=== PATIENT | male | born 1930 | race Caucasian/White ===

== ENCOUNTER → 2016-12-08 | Outpatient (CLI) | payer BC ==
[~2016-12-08] MED LIST: CELE100C PO; CHOL1CAP85 PO; CLOTCRE33 TOP; CYAN5000 PO; GARL400T4 PO; LUTE15CA PO; MELA3TAB7 PO; MULT-188 PO; NAPR1TAB9 PO; OMEGCAP2 PO; VITA1TAB4 PO; ZCR40 PO
== END | disposition home or self-care (01) ==
LOC: C.PATHSPEC 12:21
PROVIDERS: ATTEND Dentist Oral and Maxillofacial Pathology
DX: M27.0 Developmental disorders of jaws (principal)

== ENCOUNTER → 2017-07-20 | Outpatient (CLI) | payer BC | END | disposition home or self-care (01) | LOC: C.LABSPEC 17:11 | PROVIDERS: ATTEND Urology | DX: N39.0 Urinary tract infection, site not specified (principal) ==

== ENCOUNTER 2017-10-30 14:35 | Emergency (ER) | payer BC ==
[~2017-10-30] VITALS: Ht 167.6 cm; Wt 73.0 kg
[2017-10-30 14:40] VITALS: TEMP 36.3; Ht 167.6 cm; Wt 73.0 kg
[2017-10-30] MEDS ORDERED: SODIUM CHLORIDE 0.9% 1000ML 1,000 ML IV STA (17:46)
[2017-10-30] MEDS ORDERED: CHOLESTYRAMINE LIGHT 4 GM PKT PO STA (17:46)
[2017-10-30] MEDS ORDERED: ZCR40 PO (17:53)
[2017-10-30] MEDS ORDERED: MELA1TAB54 PO (17:53)
[2017-10-30] MEDS ORDERED: LUTE15CA PO (17:53)
[2017-10-30 18:21] LABS: BASO % 0.8 %; BASO ABS # 0.04 K/uL (0-0.2); HEMATOCRIT 45.9 % (42-52); HEMOGLOBIN 15.4 g/dL (14.0-18.0); IG# 0.01 K/uL (0.00-0.02); LYMPH % 33.1 %; LYMPH ABS # 1.62 K/uL (1.2-3.4); MEAN CELL VOLUME 97.7 fL (80-100); MEAN CORPUSCULAR HEMOGLOBIN 32.8 pg (25-34); MEAN CORPUSCULAR HGB CONC 33.6 g/dl (32-36); MEAN PLATELET VOLUME 10.4 fL (7.4-10.4); MONO % 13.9 %; MONO ABS # 0.68 K/uL (0.11-0.59); NEUT ABS # 2.45 K/uL (1.4-6.5); PLATELET COUNT 175 K/uL (130-400); RED CELL DISTRIBUTION WIDTH CV 13.7 % (11.5-14.5); RED CELL DISTRIBUTION WIDTH SD 49.1 fL (36.4-46.3)
--- NOTE | 2017-10-30 18:22 | EMERGENCY ROOM VISIT NOTE ---
History Report prepared by Jonathan: Yuval Whittington Under the Supervision of: Dr. Shaheed Shen M.D. First contact with patient: 17:15 Chief Complaint: DIARRHEA Stated Complaint: DIARRHEA Nursing Triage Summary: patient c/o "constant, painful diarrhea for 6-7 days." Denies other symptoms. History of Present Illness The patient is an 87 year old male who presents to the Emergency Room with complaints of persistent diarrhea for 4-5 days. The patient states that every time that he eats he has diarrhea. He denies any abdominal pain or any recent antibiotic use. The patient states that he has had a colonoscopy, though it was more than ten years ago which was normal. The patient's friend additionally states that the patient has been eating sandwiches which were a couple of days old, and this is when it all started. Source of History: patient, friend Onset: 4-5 days ago Position: other (global) Quality: other (diarrhea) Timing: other (persistent) Associated Symptoms: No abdominal pain Review of Systems See HPI for pertinent positives & negatives. A total of 10 systems reviewed and were otherwise negative. Past Medical & Surgical Medical Problems: (1) Bladder tumor Social History Smoking Status: Former Smoker Marital Status: Housing Status: lives with family Occupation Status: retired Current/Historical Medications Scheduled Lutein-Zeaxanthin (Lutein), 1 CAP PO BID [place]-3 Fatty Acids (Fish Oil), 1 CAP PO DAILY Ondasetron Odt (Zofran Odt), 4 MG SL Q6H Simvastatin (Simvastatin), 40 MG PO HS Vitamin E (Vitamin E), 400 INTER.UNIT PO DAILY Scheduled PRN Celecoxib (Celebrex), 100 MG PO DAILY PRN for Pain Melatonin (Melatonin), 5 MG PO HS PRN for Sleep Naproxen (Aleve), 440 MG PO UD PRN for Pain Allergies Coded Allergies: No Known Allergies (Unverified , 07/26/14) NONE Physical Exam Vital Signs Date Time Temp Pulse Resp B/P (MAP) Pulse Ox O2 Delivery O2 Flow Rate FiO2 10/30/17 20:09 71 18 164/80 96 10/30/17 18:20 74 18 174/85 95 Room Air 10/30/17 14:40 36.3 84 20 160/81 97 Room Air Physical Exam GENERAL: Patient is a healthy-appearing well-nourished male HEAD: Normocephalic atraumatic EYES: Ocular movements intact pupils equal and react to light OROPHARYNX mucous membranes are moist no exudates present no erythema or edema present NECK: Supple no nuchal rigidity CHEST: Good equal expansion LUNGS: Clear and equal to auscultation CARDIAC: Normal S1 and S2 ABDOMEN: Soft nontender no guarding BACK: No CVA tenderness EXTREMITIES: No pain upon palpation normal muscle strength in all groups no clubbing cyanosis or edema NEURO: Patient is following commands and answering questions appropriately. Alert and oriented x3 Cranial Nerves 2-12 grossly intact Medical Decision & Procedures ER Provider Diagnostic Interpretation: Radiology results as stated below per my review and radiologist interpretation: ABDOMEN 2VIEW W/PA CHEST RTN CLINICAL HISTORY: Pt c/o diarrhea pain COMPARISON STUDY: 02/08/2014 FINDINGS: Mild emphysematous change. No focal infiltrate. Mild stable cardia megaly. Nonobstructive bowel pattern. Degenerative changes of the osseous structures throughout. No secondary evidence for free air. IMPRESSION: 1. Mild emphysematous change of the chest with no acute process. 2. Negative abdomen. The above report was generated using voice recognition software. It may contain grammatical, syntax or spelling errors. Electronically signed by: Ken Norris M.D. 10/30/2017 7:35 PM Dictated Date/Time: 10/30/2017 7:35 PM Laboratory Results 10/30/17 18:10 Red Blood Count 4.70, Mean Corpuscular Volume 97.7, Mean Corpuscular Hemoglobin 32.8, Mean Corpuscular Hemoglobin Concent 33.6, Mean Platelet Volume 10.4, Neutrophils (%) (Auto) 50.0, Lymphocytes (%) (Auto) 33.1, Monocytes (%) (Auto) 13.9, Eosinophils (%) (Auto) 2.0, Basophils (%) (Auto) 0.8, Neutrophils # (Auto ) 2.45, Lymphocytes # (Auto) 1.62, Monocytes # (Auto) 0.68, Eosinophils # (Auto ) 0.10, Basophils # (Auto) 0.04 10/30/17 18:10 Test 10/30/17 18:10 White Blood Count 4.90 K/uL (4.8-10.8) Red Blood Count 4.70 M/uL (4.7-6.1) Hemoglobin 15.4 g/dL (14.0-18.0) Hematocrit 45.9 % (42-52) Mean Corpuscular Volume 97.7 fL (80-100) Mean Corpuscular Hemoglobin 32.8 pg (25-34) Mean Corpuscular Hemoglobin Concent 33.6 g/dl (32-36) Platelet Count 175 K/uL (130-400) Mean Platelet Volume 10.4 fL (7.4-10.4) Neutrophils (%) (Auto) 50.0 % Lymphocytes (%) (Auto) 33.1 % Monocytes (%) (Auto) 13.9 % Eosinophils (%) (Auto) 2.0 % Basophils (%) (Auto) 0.8 % Neutrophils # (Auto) 2.45 K/uL (1.4-6.5) Lymphocytes # (Auto) 1.62 K/uL (1.2-3.4) Monocytes # (Auto) 0.68 K/uL (0.11-0.59) Eosinophils # (Auto) 0.10 K/uL (0-0.5) Basophils # (Auto) 0.04 K/uL (0-0.2) RDW Standard Deviation 49.1 fL (36.4-46.3) RDW Coefficient of Variation 13.7 % (11.5-14.5) Immature Granulocyte % (Auto) 0.2 % Immature Granulocyte # (Auto) 0.01 K/uL (0.00-0.02) Anion Gap 7.0 mmol/L (3-11) Est Creatinine Clear Calc Drug Dose 29.9 ml/min Estimated GFR () 45.3 Estimated GFR (Non- 39.1 BUN/Creatinine Ratio 11.0 (10-20) Calcium Level 9.7 mg/dl (8.5-10.1) Total Bilirubin 0.8 mg/dl (0.2-1) Direct Bilirubin 0.2 mg/dl (0-0.2) Aspartate Amino Transf (AST/SGOT) 27 U/L (15-37) Alanine Aminotransferase (ALT/SGPT) 29 U/L (12-78) Alkaline Phosphatase 79 U/L (45-117) Total Protein 7.4 gm/dl (6.4-8.2) Albumin 3.5 gm/dl (3.4-5.0) Lipase 106 U/L (73-393) Radiology results as stated below per my review and radiologist interpretation: Medications Administered Medications (Trade) Dose Ordered Sig/Carmela Route Start Time Stop Time Status Last Admin Dose Admin Sodium Chloride 1,000 ml @ 999 mls/hr Q1H1M STAT IV 10/30/17 17:46 10/30/17 18:46 DC 10/30/17 18:22 999 MLS/HR Cholestyramine Resin (Questran Powder Light) 4 gm NOW STAT PO 10/30/17 17:46 10/30/17 17:49 DC 10/30/17 18:22 4 GM ED Course 1740: Past medical records reviewed. The patient was evaluated in room C3. A complete history and physical examination was performed. 174: Cholestyramine Resin 4gm PO and Sodium Chloride 1000 ml @ 999 mls/hr IV 2001: Upon reexamination the patient is donig well. I discussed results and treatment plan with the patient. He verbalizes agreement and understanding. The patient is ready for discharge. Medical Decision Differential diagnosis: Etiologies such as appendicitis, diverticulitis, PUD, biliary pathology, UTI, pancreatitis, obstruction, mesenteric ischemia, aortic pathology, infections, inflammatory bowel disease, renal colic, as well as others were entertained. This is an 87-year-old male who presents emergency department complaining of diarrhea. Despite waiting in the emergency department for 4 hours the patient is unable to provide a stool sample. His a benign abdominal examination. Serial abdominal examinations were performed on the patient in the emergency department and at no time did the patient exhibited abdominal tenderness or surgical abdomen. In addition the patient has a normal CBC renal profile liver profile normal lipase. Based on these findings I felt that the patient can be safely discharged home for follow-up this primary care physician. He'll be placed on Zofran and I recommended probiotics for the diarrhea. Patient was in agreement with the treatment plan. Medication Reconcilliation Current Medication List: was personally reviewed by me Blood Pressure Screening Patient's blood pressure: Elevated blood pressure Blood pressure disposition: Referred to PCP Impression Primary Impression: Diarrhea Scribe Attestation The scribe's documentation has been prepared under my direction and personally reviewed by me in its entirety. I confirm that the note above accurately reflects all work, treatment, procedures, and medical decision making performed by me. Departure Information Dispostion Home / Self-Care Prescriptions Ondasetron Odt (ZOFRAN ODT) 4 Mg Tab 4 MG SL Q6H for Nausea, #6 TAB Prov: Shaheed Shen MD 10/30/17 Referrals No Doctor, Assigned (PCP) Forms HOME CARE DOCUMENTATION FORM, IMPORTANT VISIT INFORMATION, WORK / SCHOOL INSTRUCTIONS Patient Instructions My [facility] Additional Instructions Follow up with DR Mcclain's office Culture results are usually available in approx 48 hours You have been examined and treated today on an emergency basis only. This is not a substitute for, or an effort to provide, complete comprehensive medical care. It is impossible to recognize and treat all injuries or illnesses in a single emergency department visit. It is therefore important that you follow up closely with Dr Mcclain. Call as soon as possible for an appointment. Thank you for your time and consideration. I look forward to speaking with you again soon. Please don't hesitate to call us if you have any questions. Problem Qualifiers Primary Impression: Diarrhea Diarrhea type: unspecified type Qualified Codes: R19.7 - Diarrhea, unspecified
[2017-10-30 18:34] LABS: ALBUMIN 3.5 gm/dl (3.4-5.0); CALCIUM 9.7 mg/dl (8.5-10.1); CREATININE 1.57 mg/dl (0.60-1.40); POTASSIUM 4.4 mmol/L (3.5-5.1)
[2017-10-30 18:37] LABS: TOTAL PROTEIN 7.4 gm/dl (6.4-8.2)
--- NOTE | 2017-10-30 19:37 | DIAGNOSTIC IMAGING REPORT ---
ABDOMEN 2VIEW W/PA CHEST RTN CLINICAL HISTORY: Pt c/o diarrhea pain COMPARISON STUDY: 02/08/2014 FINDINGS: Mild emphysematous change. No focal infiltrate. Mild stable cardia megaly. Nonobstructive bowel pattern. Degenerative changes of the osseous structures throughout. No secondary evidence for free air. IMPRESSION: 1. Mild emphysematous change of the chest with no acute process. 2. Negative abdomen. The above report was generated using voice recognition software. It may contain grammatical, syntax or spelling errors. Electronically signed by: Ken Norris M.D. 10/30/2017 7:35 PM Dictated Date/Time: 10/30/2017 7:35 PM
[2017-10-30] MEDS ORDERED: ONDA4TAB10 SL (19:47)
[2017-10-30 20:09] VITALS: BP 164/80; PULSE 71; O2SAT 96
== END 2017-10-30 20:10 | disposition home or self-care (01) ==
LOC: C.EDB 14:36 → C.EDC 20:10
DX: R19.7 Diarrhea, unspecified (principal); R03.0 Elevated blood-pressure reading, without diagnosis of hypertension; Z87.891 Personal history of nicotine dependence

== ENCOUNTER 2019-04-02 12:20 | Inpatient (IN) ==
--- OUTSIDE RECORDS SUMMARY | 2019-04-02 12:22 | External Medical Summary | Continuity of Care Document ---
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) Contact dermatitis (692.9) (L25.9) Generalized osteoarthritis of unspecified site (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) (M15 .9) Balanitis (607.1) (N48.1) Constipation (564.00) (K59.00) Bladder cancer (188.9) (C67.9) Benign enlargement of prostate (600.00) (N40.0) Squamous cell carcinoma of skin (173.92) (C44.92) Joint pain in the shoulder/clavicle region (719.41) (M25.519 ) Diarrhea (787.91) (R19.7) Osteoarthritis (715.90) Urinary tract infection (599.0) (N39.0) Hematuria (599.70) (R31.9) Hyperlipidemia (272.4) (E78.5) Gait disturbance (781.2) (R26.9) Allergies and Adverse Reactions Macrobid CAPS (Allergy) Reaction: Rash Medications [place] BCG 50ML; BCG half strength Deny Bhatt Start: 11-Mar-2016 Refills: 0 [place] BCG 50ML; To be instilled intravesi marysol into the bladder once a week for three weeks, HALF STRENGTH. AMADOR Somers Start: 29-Jan-2016 Quantity: 3 Refills: 0 Simvastatin 40 MG Oral Tablet; TAKE 1 TABLET Bedtime Y ALEC meza Quantity: 90 Refills: 3 CeleBREX 100 MG Oral Capsule; TAKE 1 CAPSULE DAILY. Quantity: 30 Refills: 5 Fish Oil 1000 MG Oral Capsule; TAKE 1 CAPSULE DAILY. Start: 11-Feb-2013 Refills: 0 One-A-Day Mens 50+ Advantage Oral Tablet; TAKE 1 TABLET CHRISSY Y. Start: 11-Feb-2013 Refills: 0 Vitamin D3 49529 UNIT Oral Capsule; TAKE 1 CAPSULE Daily Start: 11-Feb-2013 Refills: 0 Ocuvite TABS; TAKE 1 TABLET DAILY. Start : 11-Feb-2013 Refills: 0 Aspirin 325 MG Oral Tablet; TAKE 1 TABLET DAILY. Start: 11-Feb-2013 Refills: 0 Garlic 1000 MG Oral Capsule; TAKE 1 CAPSULE Daily Start: 11-Feb-2013 Refills: 0 Vitamin B-12 5000 MCG Sublingual Tablet Sublingual; PLACE 1 MCG Daily Start: 11-Feb-2013 Refills: 0 Vitamin E 400 UNIT Oral Capsule; TAKE 1 CAPSULE Daily Start: 11-Feb-2013 Refills: 0 Melatonin 3 MG Oral Capsule; TAKE 1 CAPSULE AT BEDTIME NEEDED. ALEC Osorio Start: 01-Apr-2013 Refills: 0 Lutein 20 MG Oral Capsule; Take 1 capsule twice daily Refills: 0 Gabapentin 300 MG Oral Capsule Refills: 0 Clotrimazole-Betamethasone 1-0.05 % Exte rnal Cream; APPLY AND RUB IN A THIN FILM TO AFFECTED AREAS TWICE DAILY.(AM AND PM). ALEC Osorio Start: 31-Aug-2013 Quantity: 45 Refills: 1 Procedures History of Appendectomy Status: Complete d History of Colonoscopy (Fiberoptic) Stat us: Completed Immunizations Td On: 21-Mar-2000 Pneumococcal polysaccharide vaccine, 23 valent On: 08-Mar-20 03 Influenza On: 03-Jun-2012 0:00 Influenza On: 28-Jun-2013 13:23 Lot #: [id number], SANOFI PASTEUR Family History Father Family history of Family Health Status Of Father - Status: Active Mother Family history of Family Health Status Of Mother - Status: Active Brother Family history of Twin Status: Active Social History - Smoking Status Former smoker Plan of Treatment Planned Encounters Appointment; Jaylen Bhatt M.D. Start: 18-Apr-2019 11:10 Request Planned Observations Planned Goals not documented Results No Known Results Results not documented Encounters Appointment; Jaylen Bhatt M.D. 19-Apr-2018 10:10 Encounter Diagnosis: Problem not documented Appointment; Urology, Room 8 19-Apr-2018 9:50 Encounter Diagnosis: Problem not documented Appointment; Jaylen Bhatt M.D. 20-Jul-2017 13:00 Encounter Diagnosis: Problem not documented Appointment; Urology, Room 7 20-Jul-2017 12:45 Encounter Diagnosis: Problem not documented Appointment; Jaylen Bhatt M.D. 18-Apr-2019 11:10 Encounter Diagnosis: Problem not documented
[2019-04-02] MEDS ORDERED: SODIUM CHLORIDE 0.9% 1000ML 1,000 ML IV SCH (12:45)
--- NOTE | 2019-04-02 13:08 | XRay Report ---
XR chest 1V portable CLINICAL HISTORY: 89 years-old Male presenting with ams. TECHNIQUE: Portable upright AP view of the chest was obtained. COMPARISON: 08/26/2018. FINDINGS: Atherosclerosis of the aortic arch. Cardiac silhouette normal in size. No focal opacity. No large eff usion or pneumothorax. Osseous structures normal. Upper abdomen normal. IMPRESSION: 1. No acute cardiopulmonary disease. Electronically signed by: Montez Bateman M.D. 04/02/2019 1:07 PM
[2019-04-02 14:05] LABS: Basophils # (auto) 0.02 K/uL (0-0.2); Basophils % (auto) 0.2 %; Eosinophils # (auto) 0.04 K/uL (0-0.5); Eosinophils % (auto) 0.5 %; Hematocrit (blood only) 49.2 % (42-52); Hemoglobin 16.1 g/dL (14.0-18.0); Immature Granulocytes # (auto) 0.05 K/uL (0.00-0.02); Immature Granulocytes % (auto) 0.6 %; Lymphocytes # (auto) 1.25 K/uL (1.2-3.4); Lymphocytes % (auto) 15.5 %; Mean Corpuscular Hgb Conc 32.7 g/dL (32-36); Mean Platelet Volume 12.3 fL (7.4-10.4); Monocytes # (auto) 0.75 K/uL (0.11-0.59); Monocytes % (auto) 9.3 %; Neutrophils # (auto) 5.95 K/uL (1.4-6.5); Neutrophils % (auto) 73.9 %; Platelet Count 127 K/uL (130-400); Platelet Estimate Normal (Normal); RDW Standard Deviation 54.3 fL (36.4-46.3); Red Blood Count 4.87 M/uL (4.7-6.1); White Blood Count 8.06 K/uL (4.8-10.8)
[2019-04-02 14:23] LABS: Carbon Dioxide 20 mmol/L (21-32); Chloride 124 mmol/L (98-107); Potassium 4.6 mmol/L (3.5-5.1)
[2019-04-02 14:24] LABS: BUN Creatinine Ratio 23.1 (10-20); Blood Urea Nitrogen 59 mg/dl (7-18); Est GFR (African American) 25.1; Est GFR (Non-African American) 21.6; Glucose 107 mg/dl (70-99)
[2019-04-02 14:25] LABS: Calcium 9.4 mg/dl (8.5-10.1)
[2019-04-02 14:26] LABS: Alanine Aminotransferase 25 U/L (12-78); Aspartate Aminotransferase 19 U/L (15-37); Bilirubin,Total 0.8 mg/dl (0.2-1); Magnesium 2.7 mg/dl (1.8-2.4)
[2019-04-02 14:27] LABS: Albumin Globulin Ratio 0.8 (0.9-2); Albumin Level 3.3 gm/dl (3.4-5.0); Alkaline Phosphatase 95 U/L (45-117); Globulin 4.1 gm/dl (2.5-4.0); NT Pro B Type Natriuretic Pept 311 pg/ml (0-1800); Total Protein 7.4 gm/dl (6.4-8.2); Troponin I < 0.015 ng/ml (0-0.045)
[2019-04-02 14:37] LABS: Sodium 156 mmol/L (136-145)
--- NOTE | 2019-04-02 15:00 | CT Scan Report ---
CT head/brain wo con CLINICAL HISTORY: 89 years-old Male presenting with ams. TECHNIQUE: Multidetector CT imaging of the head was performed without the use of intravenous contrast . IV contrast: None. One or more dose lowering techniques were used consistent with the principles of ALARA (as low as reasonably achievable), including automatic exposure control, mA or kV adjustment t o individual patient size, and/or use of iterative reconstruction. COMPARISON: None. CT DOSE (mGy.cm): The estimated cumulative dose is 537.48 mGy.cm. FINDINGS: Stair Builder topogram: The patient is edentulous. Proportional ventricular and sulcal prominence, likely age-related parenchymal volume loss. No hemorr sajan. Brain parenchyma normal in appearance with preserved keating-white differentiation. No acute josee torial infarct. No mass effect or midline shift. No extra-axial fluid collection. Paranasal sinuses a nd mastoid air cells clear. Calvarium intact. IMPRESSION: 1. No acute intracranial abnormality. Electronically signed by: Montez Bateman M.D. 04/02/2019 2:59 PM
--- NOTE | 2019-04-02 15:53 | CT Scan Report ---
CT abd pelvis wo con CLINICAL HISTORY: 89 years-old Male presenting with new renal failure. TECHNIQUE: Multidetector CT of the abdomen and pelvis was performed without the use of intravenous co ntrast. IV contrast: None. One or more dose lowering techniques were used consistent with the princip les of ALA (as low as reasonably achievable), including automatic exposure control, mA or kV adjust ment to individual patient size, and/or use of iterative reconstruction. COMPARISON: None. CT DOSE (mGy.cm): The estimated cumulative dose is 258.30 mGy.cm. FINDINGS: Dental Technician Apprentice topogram: Unremarkable. Lung bases: Normal heart size. Coronary artery and aortic valve calcification. No pericardial or pleu ral effusion. Trace lower lobe bronchiectasis suggested. Minimal reticulation in a subpleural distrib ution may suggest scarring. Liver: Normal morphology. Normal density. Few subcentimeter well-defined hypodense lesions likely hep atic cysts or hamartomas. Biliary: No gross biliary ductal dilatation allowing for noncontrast technique. Hyperdense material w ithin the gallbladder dependently may represent sludge. The gallbladder is physiologically distended. Pancreas: Mild parenchymal atrophy. Spleen: Normal noncontrast appearance. Adrenal glands: Normal noncontrast appearance. Kidneys and ureters: Normal noncontrast appearance. Few parapelvic cyst suggested in the left kidney. No nephrolithiasis. No hydronephrosis. Normal ureters. Bladder: Circumferential bladder wall thickening. Several bladder diverticula noted. Pelvic organs: Prostate enlargement likely secondary to benign prostatic hyperplasia. Asymmetric bulg ing contour in the right peripheral zone. Bowel: Diverticulosis of the sigmoid colon without wall thickening or pericolonic inflammatory change . Mild stool burden throughout normal caliber left colon. The appendix is not visualized. No bowel ob struction. Peritoneal cavity: No free fluid or intraperitoneal gas. Lymph nodes: No gross lymphadenopathy allowing for noncontrast technique. Vasculature: Atherosclerosis of the normal caliber abdominal aorta. Abdominal wall: Normal. Musculoskeletal: Degenerative changes of the spine. Calcification in the region of the hip joints may represent osteochondromatosis or calcification of synovium. IMPRESSION: 1. No hydronephrosis or nephrolithiasis. Normal noncontrast evaluation of the kidneys. 2. 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 Several bladder diver ticula. 3. Bulging contour of the right aspect of the prostate. An underlying lesion is not excluded. Correl ate with PSA. Consider nonurgent outpatient prostate MRI if there is concern. 4. Diverticulosis coli. No evidence of diverticulitis. 5. Hyperdense material in the gallbladder may represent sludge. 6. Degenerative changes of the hips. Electronically signed by: Montez Bateman M.D. 04/02/2019 3:51 PM
[2019-04-02] MEDS ORDERED: D5W AND 1/2NSS 1,000 ML IV SCH (16:00)
[2019-04-02] MEDS ORDERED: ONDANSETRON INJ 2 MG/ML 2 ML VIAL IV PRN (17:01)
[2019-04-02] MEDS ORDERED: CONSULT PHARMACY STA (17:01)
[2019-04-02] MEDS ORDERED: ACETAMINOPHEN 325 MG TAB PO PRN (17:01)
[2019-04-02] MEDS ORDERED: DEXTROSE 5% 1,000 ML IV SCH (17:01)
[2019-04-02] MEDS ORDERED: POLYETHYLENE (MIRALAX) 17 GM PACK PO PRN (17:01)
[2019-04-02] MEDS: DEXTROSE 5% 1,000 ML IV SCH (17:07)
[2019-04-02] MEDS ORDERED: CEFEPIME CONSULT ACTIVE PRN (17:13)
[2019-04-02] MEDS ORDERED: CEFEPIME 1,000 MG in SYRINGE 0 ML IV ONE (17:15)
[2019-04-02] MEDS: TAMSULOSIN HCL 0.4 MG CAP PO ONE ×2 (17:35→17:44)
--- NOTE | 2019-04-02 17:48 | History & Physical Report ---
Date of Service April 02, 2019 Assessment & Plan (1) Acute renal failure superimposed on stage 3 chronic kidney disease: (2) Metabolic encephalopathy: (3) Dehydration: This is a 89-year-old male who has a significant past medical history of bladder cancer, BPH, HLD, CKD stage III, depression/anxiety, osteoarthritis who presents to [facility] ED secondary to altered mental status found by neighbor. In ED patient was found to have GERRI with hyponatremia. His BUN/creatinine was 59 and 2.53 with a sodium of 156. Chloride was 124, CO2 20, mag 2.7. Troponin and BNP WNL. His H&H concentrated at 16.1 and 49.2, WBC 8.06, platelet [address]. Head CT and chest x-ray without acute abnormality. CT scan of abdomen pelvis Suggest chronic bladder outlet obstruction secondary to prostamegaly with several bladder diverticula, bulging contour of the right aspect of prostate and underlying lesion is not excluded correlate with PSA. No hydronephrosis or nephrolithiasis. Patient is alert and oriented, not overly confused, but his history is very unreliable He appears significantly dehydrated and volume depleted likely secondary to poor p.o. intake Patient lives alone and does not drive, unsure of social situation if patient is safe at home alone or is taking care of himself He has very flat affect did makes minimal eye contact, question if depression versus dementia is playing a role in his p.o. intake Admit to PCU I calculated a 3.3 L deficit and will correct his hypernatremia approximately 8- 10meq/24hr D5W 100 cc/h BMP every 4 hours, will titrate fluid rate based on response Consult nephrology -discussed with Dr. Dyson Obtain urine studies, B12, folic acid RPR, phos Obtain blood cultures to rule out infectious etiology but less likely as patient is afebrile and WBC WNL Administer IV cefepime until infection ruled out (4) BPH (benign prostatic hyperplasia): Per CT report Patient denies any urinary symptoms CT scan concerning for bulging contour of right aspect of prostate -recommend correlating with PSA obtain PSA in a.m. (5) Dyslipidemia: History of HLD, currently not taking any prescription medication Will need appropriate outpatient PCP follow-up (6) DVT prophylaxis: SQ Heparin 5,000U Q12 given age, weight and Plt 128 Disposition: admit to PCU; consult case management for discharge disposition Follow up: Pt states he does not see Dr. Mcclain and would like another PCP, will arrange follow up upon discharge Patient was seen and examined in collaboration with Dr. Flores, please see addendum History of Present Illness Chief Complaint: Altered mental status Primary Care Provider: Santi Mcclain, DO This is a 89-year-old male who has a significant past medical history of bladder cancer, BPH, HLD, CKD stage III, depression/anxiety, osteoarthritis who presents to [facility] ED secondary to altered mental status found by neighbor. Patient lives alone however has a neighbor that checks on him frequently. He does not drive and relies on neighbor. Apparently neighbor came over to check in on patient and found him standing in his underwear and felt to be more confused. EMS was summoned. Patient has very flat affect and I am unsure if ROS is reliable. He denies any recent illness, any fever, chills, sweats, lightheadedness, dizziness, chest pain, shortness of breath, cough, hemoptysis, nausea, vomiting, diarrhea, changes bowel or urinary habits, increased urgency or frequency with urination, hematuria, nocturia. He says he is very hungry and has not ate anything in a few days. He is not sure why he has not eaten anything but is requesting food. He says he drinks a lot of fluid, milk and root beer. He states he has no family close by. He has 1 brother who he is estranged from. He said approximately 1 to 2 years ago he had thoughts of committing suicide and therefore sold his gun. Currently he overall feels depressed but denies any suicidal or homicidal ideation. He states he just wants to, "go home." Allergies Allergy/AdvReac Type Severity Reaction Status Date / Time nitrofurantoin Allergy Rash Unverified 04/02/19 12:50 [From Macrobid] Home Medications Home Medications Medication Instructions Recorded Confirmed Type melatonin 5 mg PO HS PRN 08/26/18 04/02/19 History cholecalciferol (vitamin D3) 1,000 unit PO DAILY 04/02/19 04/02/19 History [Vitamin D3] cyanocobalamin (vitamin B-12) 1,000 mcg PO DAILY 04/02/19 04/02/19 History [Vitamin B-12] garlic 1,000 mg PO DAILY 04/02/19 04/02/19 History lutein 20 mg PO DAILY 04/02/19 04/02/19 History yhtohwvnmnqw-dsepwvnz-trhllv 1 tab PO DAILY 04/02/19 04/02/19 History [Multivitamin 50 Plus] omega 1-itp-ckm-fish oil [Fish Oil] 2 cap PO DAILY 04/02/19 04/02/19 History vit C-E-zinc nqc-nwvvbf-ubtttq 2 tab PO DAILY 04/02/19 04/02/19 History [[facility]] vitamin E 1,000 unit PO DAILY 04/02/19 04/02/19 History Past Med/Surg History Medical History BPH (benign prostatic hyperplasia) (Chronic) Depression with anxiety (Chronic) CKD (chronic kidney disease), stage III (Chronic) Osteoarthritis (Chronic) History of bladder cancer (Chronic) History of squamous cell carcinoma (Chronic) Bladder cancer (Chronic 08/08/14) Dyslipidemia (Chronic) Gout (Chronic) Surgical History History of appendectomy (Chronic) History of colonoscopy (Chronic) Family History Father Cancer Other Family history non-contributory Social History Preferred Language: Indian Communication Ability: Effective marital status: Single Current Living Situation: Alone Current Living Situation Comment: patient states he lives alone, has neighbor that checks on him frequently, he does not drive current occupational status: retired other: Ambulates with cane Feels Safe at Home: Yes Safety Concerns: Feels Safe At This Time Smoking Status: Former smoker Hx Alcohol Use: No Hx Substance Use: No Review of Systems Review of Systems: As noted per HPI, 10 systems reviewed and negative unless noted above. Physical Exam Physical Exam: Gen: Thin, elderly male, very blunted affect, minimal eye contact, answers questions appropriately but unsure how reliable , NAD, Head: Normocephalic, Atraumatic Eyes: Sclera normal, no conjunctival injection, PERRLA, EOMI ENT: Gross hearing intact, normal pharynx, mucous membranes very dry Neck: supple, no adenopathy, No JVD, no bruit, Resp: Clear to auscultation b/l, no wheeze, rales, rhonchi. 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 Extremities: No edema bilaterally Skin: warm, very dry with sloughing of skin secondary to dryness/poor hygiene, no rash, significant turgor, cap refill < 2sec Neuro: Alert and oriented to self, place, year, president but not month, speech normal, very flat mood/affect, cran nerve 2-12 intact grossly : deferred Results & Data Vital Signs (Past 12 Hours) Vital Signs Temp Pulse Pulse Resp BP BP Pulse Ox 04/02/19 17:14 37.1 C 85 18 111/68 96 04/02/19 17:01 04/02/19 14:30 90 37 H 129/72 97 04/02/19 13:03 97 04/02/19 12:13 37.1 C 97 H 38 H 126/78 97 Pulse Ox 04/02/19 17:14 04/02/19 17:01 97 04/02/19 14:30 04/02/19 13:03 04/02/19 12:13 Laboratory Results Short CBC 04/02/19 Range/Units 13:10 WBC 8.06 (4.8-10.8) K/uL Hgb 16.1 (14.0-18.0) g/dL Hct 49.2 (42-52) % Plt Count 127 L (130-400) K/uL BMP 04/02/19 13:10 Sodium 156 H* Potassium 4.6 Chloride 124 H Carbon Dioxide 20 L BUN 59 H Creatinine 2.53 H Glucose 107 H Calcium 9.4 Cardiac Enzymes 04/02/19 Range/Units 13:10 Troponin I < 0.015 (0-0.045) ng/ml Liver Function 04/02/19 Range/Units 13:10 Total Bilirubin 0.8 (0.2-1) mg/dl AST 19 (15-37) U/L ALT 25 (12-78) U/L Alkaline Phosphatase 95 (45-117) U/L Albumin 3.3 L (3.4-5.0) gm/dl Urine 07/13/19 Range/Units 15:42 Urine Color Urine Appearance (Clear) Urine pH (4.5-7.5) Ur Specific Viola (1.000-1.030) Urine Protein (Negative) Urine Glucose (UA) (Negative) Diagnostic Findings Abd/Pelvis CT: IMPRESSION: 1. No hydronephrosis or nephrolithiasis. Normal noncontrast evaluation of the kidneys. 2. 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 Several bladder diverticula. 3. Bulging contour of the right aspect of the prostate. An underlying lesion is not excluded. Correlate with PSA. Consider nonurgent outpatient prostate MRI if there is concern. 4. Diverticulosis coli. No evidence of diverticulitis. 5. Hyperdense material in the gallbladder may represent sludge. 6. Degenerative changes of the hips. Head CT: IMPRESSION: 1. No acute intracranial abnormality. CXR: IMPRESSION: 1. No acute cardiopulmonary disease. Medications Administered Dextrose (D5w) 1,000 mls @ 100 mls/hr IV .Q10H [facility] Stop: 05/02/19 16:44 Last Admin: 04/02/19 17:07 Dose: 100 mls/hr Documented by: [id number] Discontinued Medications Sodium Chloride (Nss 1000ml) 1,000 mls @ 200 mls/hr IV .Q5H [facility] Stop: 05/02/19 12:44 Last Admin: 04/02/19 13:59 Dose: 200 mls/hr Documented by: [id number] Dextrose/Sodium Chloride (D5w And 1/2nss) 1,000 mls @ 75 mls/hr IV .[id number] [facility] Stop: 05/02/19 15:59 Last Admin: 04/02/19 17:04 Dose: Not Given Documented by: [id number] Dextrose (D5w) 1,000 mls @ 75 mls/hr IV .[id number] [facility] Stop: 05/02/19 17:00 Last Admin: 04/02/19 17:04 Dose: Not Given Documented by: [id number] Cefepime HCl 1,000 mg/ Syringe 11.3 mls @ 5.5 mls/min IV 1715 ONE; Protocol Stop: 04/02/19 17:17 Last Admin: 04/02/19 17:34 Dose: 5.5 mls/min Documented by: [id number] Tamsulosin HCl (Flomax) 0.4 mg PO 1715 ONE Stop: 04/02/19 17:16 Last Admin: 04/02/19 17:44 Dose: Not Given Documented by: [id number] ECG Rate (beats per minute): 85 Rhythm: normal sinus Code Status & VTE Plan Code Status Full Code VTE Prophylaxis Plan VTE Prophylaxis will be ordered: Yes Supervising Physician Co-Signing Physician Notes I have seen and examined the patient with physician teachers' assistant and agree with the assessment and plan as above and would like to comment in addition that the main medical issues is hypernatremia as patient presents with serum sodium of 156 and it is unclear whether or not this is an acute or chronic hypernatremia. At this time it is is presumed that hypernatremia may be secondary to dehydration and at this time the goal is to use D5 water to bring down the serum a sodium perhaps by no more than 8 meq in a 24 hour period. will do serial basic metabolic panel to see if we can achieve these goals. while the patient's initial presentation may indicate an altered mental status, he is currently following directions and able to eat food for himself. Will cover for possible infection by doing cefepime 1 gram q12 hours and follow the blood cultures. the urine analysis is positive for bacteria and there may be an underlying urine infection. will also monitor the urine output. Patient's jeremy Fabienne Walker ([phone]) who lives in [place] have been notified after patient gave the phone number and permission to call and she did indicate history of prostate cancer in the past and admission CT scan does show chronic bladder L obstruction secondary to prostatomegaly, Several bladder diverticula, and Bulging contour of the right aspect of the prostate for which an underlying lesion is not excluded. Will do qshift bladder scan On exam: General: no acute distress Neuro: awake and alert, appears to be answering questions appropriately but he cannot elaborate what happened at home that led to hospital presentation Lungs: clear to asucltation heart: regular rate and rhythm abdomen; soft nontender, positive bowel sounds Extremities no edema
[2019-04-02 18:31] LABS: Folate (Folic Acid) 10.82 ng/ml (>5.38)
[2019-04-02 18:35] LABS: Calcium 8.9 mg/dl (8.5-10.1); Creatinine Clr Calc Pharmacy 19.1 ml/min; Est GFR (African American) 30.2; Phosphorus 3.4 mg/dl (2.5-4.9); Potassium 4.3 mmol/L (3.5-5.1)
[2019-04-02 18:42] LABS: INR 1.1 (0.9-1.1); Partial Thromboplastin Time 26.2 Seconds (21.0-31.0); Prothrombin Time 10.8 Seconds (9.0-12.0)
[2019-04-02] MEDS: HEPARIN SOD 5,000 UNIT/0.5 ML VIAL SQ SCH (21:39)
[2019-04-02 22:16] LABS: Total Protein Urine Random 75.1 mg/dl (0-11.9)
--- NOTE | 2019-04-02 22:23 | Emergency Department Note ---
Entered by Kenia Hurley acting as a scribe for History of Present Illness General Chief complaint: Altered Mental Status Stated complaint: ALTERED LEVEL CONSCIOUSNESS Time Seen by Provider: 04/02/19 12:27 Source: patient and other (nursing staff) History of Present Illness Onset (ago): day(s) (today) Location: head Pain Consistency: + other (episode) Quality: + other (altered mental status) Associated symptoms: + denies other symptoms (any pain anywhere, trouble moving his bowels, urinary symptoms); no loss of appetite The patient is an 89 year old male who presents to the ED with complaints of an episode of altered mental status starting today. Per nursing staff, the patient lives in an elderly neighborhood and one of his other elderly neighbors who cares for him went to check on him. They report that it took him a long time to answer the door and when he did, he was in his underwear. They report that he ended up getting into a fight with her because she states that this just wasnt him. They state that he then just sat down in a chair and refused to respond or answer questions until he found out EMS was on its way. They report that his friends states that he wasnt caring for himself, but his house was immaculate. They note that he did however have dirty clothes on when he arrived here. The patient denies any pain anywhere, trouble moving his bowels, urinary symptoms, loss of appetite, or change in medication. Home Medications Home Medications Medication Instructions Recorded Confirmed Type melatonin 5 mg PO HS PRN 08/26/18 04/02/19 History cholecalciferol (vitamin D3) 1,000 unit PO DAILY 04/02/19 04/02/19 History [Vitamin D3] cyanocobalamin (vitamin B-12) 1,000 mcg PO DAILY 04/02/19 04/02/19 History [Vitamin B-12] garlic 1,000 mg PO DAILY 04/02/19 04/02/19 History lutein 20 mg PO DAILY 04/02/19 04/02/19 History fhrcpekeshct-oyksufxy-kfefwo 1 tab PO DAILY 04/02/19 04/02/19 History [Multivitamin 50 Plus] omega 1-gjf-ynj-fish oil [Fish Oil] 2 cap PO DAILY 04/02/19 04/02/19 History vit C-E-zinc rja-eamuqb-srgwmx 2 tab PO DAILY 04/02/19 04/02/19 [facility] vitamin E 1,000 unit PO DAILY 04/02/19 04/02/19 History Allergies Allergy/AdvReac Type Severity Reaction Status Date / Time nitrofurantoin Allergy Rash Unverified 04/02/19 12:50 [From Macrobid] Past Med/Surg History Medical History BPH (benign prostatic hyperplasia) (Chronic) Depression with anxiety (Chronic) CKD (chronic kidney disease), stage III (Chronic) Osteoarthritis (Chronic) History of bladder cancer (Chronic) History of squamous cell carcinoma (Chronic) Bladder cancer (Chronic 08/08/14) Dyslipidemia (Chronic) Gout (Chronic) Surgical History History of appendectomy (Chronic) History of colonoscopy (Chronic) Family History Father Cancer Other Family history non-contributory Social History Preferred Language: Albanian Communication Ability: Effective marital status: Single Current Living Situation: Alone Current Living Situation Comment: patient states he lives alone, has neighbor that checks on him frequently, he does not drive current occupational status: retired other: Ambulates with cane Feels Safe at Home: Yes Safety Concerns: Feels Safe At This Time Smoking Status: Former smoker Hx Alcohol Use: No Hx Substance Use: No Review of Systems See HPI for pertinent positives & negatives. and A total of 10 systems reviewed and were otherwise negative Physical Exam Vital Signs Vital Signs - 24 hr 04/02/19 12:13 04/02/19 13:03 04/02/19 14:30 Temperature 37.1 C Temperature Source Oral Sepsis Recent Fever Within 48 Hours No Sepsis New/Unexplained Change in Mental Status Yes Sepsis Action Taken by Nursing No Action Required Pulse Rate 97 H Pulse Rate [Apical] 90 Pulse Rhythm Regular Pulse Rhythm [Apical] Regular Pulse Strength Normal Pulse Strength [Apical] Normal Respiratory Rate 38 H 37 H Respiratory Effort / Characteristics Non-Labored Non-Labored Respiratory Depth Normal Respiratory Pattern Tachypnea Tachypnea Blood Pressure 126/78 Blood Pressure [Right Arm] 129/72 Blood Pressure Mean 94 Blood Pressure Mean [Right Arm] 91 Blood Pressure Position Lying Blood Pressure Position [Right Arm] Sitting Pulse Oximetry 97 97 97 Oxygen Delivery Method Room Air Room Air Room Air GENERAL: alert, well appearing, well nourished, no distress, non-toxic EYE EXAM: normal conjunctiva, PERRL and EOM's grossly intact OROPHARYNX: no exudate, no erythema, lips, buccal mucosa, and tongue normal and mucous membranes are very dry NECK: supple, no nuchal rigidity, no adenopathy, non-tender LUNGS: Diminished breath sounds. No wheezes, rhonchi, or rales. Normal chest wall mechanics HEART: no murmurs, S1 normal and S2 normal ABDOMEN: abdomen soft, non-tender, normo-active bowel sounds, no masses, no rebound or guarding. BACK: Back is symmetrical on inspection and there is no deformity, no midline tenderness, no CVA tenderness. SKIN: no rashes and no bruising, no petechiae UPPER EXTREMITIES: upper extremities are grossly normal. FROM, nml pulses b/l. LOWER EXTREMITIES: No pitting edema. FROM, nml pulses b/l. NEURO EXAM: Normal sensorium, cranial nerves II-XII grossly intact, normal speech, no gross weakness of arms, no gross weakness of legs. No ataxia, no facial droop. Patient answered all questions of orientation correct for the nurse and myself with the exception of the month. Course 1233: Past medical records reviewed. The patient was evaluated in room A9B. A complete history and physical exam was performed. 1506: I reevaluated the patient and updated him on his test results. I discussed the treatment plan with him. He verbally agrees and understands. 1513: I discussed the patient's case with ALEC Guerra. She will evaluate the patient for further management. Consultations Consultation #1: I discussed the patient's case with ALEC Guerra. She will evaluate the patient for further management. Time: 15:13 Administered Medications Heparin Sodium (Porcine) (Heparin Sodium (Porcine)) 5,000 units SQ Q12 NAYA Stop: 05/02/19 20:59 Last Admin: 04/02/19 21:39 Dose: 5,000 units Documented by: [id number] Cosigned by: [id number] Dextrose (D5w) 1,000 mls @ 100 mls/hr IV .Q10H NAYA Stop: 05/02/19 16:44 Last Admin: 04/02/19 17:07 Dose: 100 mls/hr Documented by: [id number] Discontinued Medications Sodium Chloride (Nss 1000ml) 1,000 mls @ 200 mls/hr IV .Q5H NAYA Stop: 05/02/19 12:44 Last Infusion: 04/02/19 19:12 Dose: 0 mls/hr Documented by: [id number] Admin: 04/02/19 13:59 Dose: 200 mls/hr Documented by: [id number] Dextrose/Sodium Chloride (D5w And 1/2nss) 1,000 mls @ 75 mls/hr IV .[id number] NAYA Stop: 05/02/19 15:59 Last Admin: 04/02/19 17:04 Dose: Not Given Documented by: [id number] Dextrose (D5w) 1,000 mls @ 75 mls/hr IV .[id number] NAYA Stop: 05/02/19 17:00 Last Admin: 04/02/19 17:04 Dose: Not Given Documented by: [id number] Cefepime HCl 1,000 mg/ Syringe 11.3 mls @ 5.5 mls/min IV 1715 ONE; Protocol Stop: 04/02/19 17:17 Last Admin: 04/02/19 17:34 Dose: 5.5 mls/min Documented by: [id number] Tamsulosin HCl (Flomax) 0.4 mg PO 1715 ONE Stop: 04/02/19 17:16 Last Admin: 04/02/19 17:44 Dose: Not Given Documented by: [id number] Medical Decision Making Differential Diagnosis Differential diagnoses includes but is not limited to toxic, metabolic, infectious, traumatic, cardiac, neurologic, hematologic, psychiatric and inflammatory etiologies. Medical Records Attestation: I reviewed the patient's medical records. Home Medications Current Medication List: was personally reviewed by me Laboratory Data Attestation: I reviewed the patient's lab results. Result diagrams: 04/02/19 13:10 04/02/19 17:42 Lab Results 04/02/19 04/02/19 04/02/19 Range/Units 13:10 13:10 13:10 WBC 8.06 (4.8-10.8) K/uL RBC 4.87 (4.7-6.1) M/uL Hgb 16.1 (14.0-18.0) g/dL Hct 49.2 (42-52) % MCV 101.0 H (80-100) fL MCH 33.1 (25-34) pg MCHC 32.7 (32-36) g/dL RDW Std Deviation 54.3 H (36.4-46.3) fL RDW Coeff of Erick 15.0 H (11.5-14.5) % Plt Count 127 L (130-400) K/uL MPV 12.3 H (7.4-10.4) fL Immature Gran % (Auto) 0.6 % Neut % (Auto) 73.9 % Lymph % (Auto) 15.5 % Sandoval % (Auto) 9.3 % Eos % (Auto) 0.5 % Baso % (Auto) 0.2 % Immature Gran # (Auto) 0.05 H (0.00-0.02) K/uL Neut # (Auto) 5.95 (1.4-6.5) K/uL Lymph # (Auto) 1.25 (1.2-3.4) K/uL Sandoval # (Auto) 0.75 H (0.11-0.59) K/uL Eos # (Auto) 0.04 (0-0.5) K/uL Baso # (Auto) 0.02 (0-0.2) K/uL Platelet Estimate Normal (Normal) Sodium 156 H* (136-145) mmol/L Potassium 4.6 (3.5-5.1) mmol/L Chloride 124 H (98-107) mmol/L Carbon Dioxide 20 L (21-32) mmol/L Anion Gap 12.0 H (3-11) BUN 59 H (7-18) mg/dl Creatinine 2.53 H (0.6-1.4) mg/dl Est Cr Clr Drug Dosing Not Reportable Est GFR ( Amer) 25.1 Est GFR (Non-Af Amer) 21.6 BUN/Creatinine Ratio 23.1 H (10-20) Glucose 107 H (70-99) mg/dl POC Lactic Acid Soy (0.90-1.70) mmol/L Calcium 9.4 (8.5-10.1) mg/dl Magnesium 2.7 H (1.8-2.4) mg/dl Total Bilirubin 0.8 (0.2-1) mg/dl AST 19 (15-37) U/L ALT 25 (12-78) U/L Alkaline Phosphatase 95 (45-117) U/L Ammonia Cancelled Troponin I < 0.015 (0-0.045) ng/ml NT-Pro-B Natriuret Pep 311 (0-1800) pg/ml Total Protein 7.4 (6.4-8.2) gm/dl Albumin 3.3 L (3.4-5.0) gm/dl Globulin 4.1 H (2.5-4.0) gm/dl Albumin/Globulin Ratio 0.8 L (0.9-2) Lipase 278 (73-393) U/L 04/02/19 Range/Units 13:38 WBC (4.8-10.8) K/uL RBC (4.7-6.1) M/uL Hgb (14.0-18.0) g/dL Hct (42-52) % MCV (80-100) fL MCH (25-34) pg MCHC (32-36) g/dL RDW Std Deviation (36.4-46.3) fL RDW Coeff of Erick (11.5-14.5) % Plt Count (130-400) K/uL MPV (7.4-10.4) fL Immature Gran % (Auto) % Neut % (Auto) % Lymph % (Auto) % Sandoval % (Auto) % Eos % (Auto) % Baso % (Auto) % Immature Gran # (Auto) (0.00-0.02) K/uL Neut # (Auto) (1.4-6.5) K/uL Lymph # (Auto) (1.2-3.4) K/uL Sandoval # (Auto) (0.11-0.59) K/uL Eos # (Auto) (0-0.5) K/uL Baso # (Auto) (0-0.2) K/uL Platelet Estimate (Normal) Sodium (136-145) mmol/L Potassium (3.5-5.1) mmol/L Chloride (98-107) mmol/L Carbon Dioxide (21-32) mmol/L Anion Gap (3-11) BUN (7-18) mg/dl Creatinine (0.6-1.4) mg/dl Est Cr Clr Drug Dosing Est GFR ( Amer) Est GFR (Non-Af Amer) BUN/Creatinine Ratio (10-20) Glucose (70-99) mg/dl POC Lactic Acid Soy 1.83 H (0.90-1.70) mmol/L Calcium (8.5-10.1) mg/dl Magnesium (1.8-2.4) mg/dl Total Bilirubin (0.2-1) mg/dl AST (15-37) U/L ALT (12-78) U/L Alkaline Phosphatase (45-117) U/L Ammonia Troponin I (0-0.045) ng/ml NT-Pro-B Natriuret Pep (0-1800) pg/ml Total Protein (6.4-8.2) gm/dl Albumin (3.4-5.0) gm/dl Globulin (2.5-4.0) gm/dl Albumin/Globulin Ratio (0.9-2) Lipase (73-393) U/L Imaging Data Radiologist's Impression: Radiology results as stated below per my review and the radiologist's interpretation: XR chest 1V portable CLINICAL HISTORY: 89 years-old Male presenting with ams. TECHNIQUE: Portable upright AP view of the chest was obtained. COMPARISON: 08/26/2018. FINDINGS: Atherosclerosis of the aortic arch. Cardiac silhouette normal in size. No focal opacity. No large effusion or pneumothorax. Osseous structures normal. Upper abdomen normal. IMPRESSION: 1. No acute cardiopulmonary disease. Electronically signed by: Montez Bateman M.D. 04/02/2019 1:[address] head/brain wo con CLINICAL HISTORY: 89 years-old Male presenting with ams. TECHNIQUE: Multidetector CT imaging of the head was performed without the use of intravenous contrast. IV contrast: None. One or more dose lowering techniques were used consistent with the principles of ALARA (as low as reasonably achievable), including automatic exposure control, mA or kV adjustment to individual patient size, and/or use of iterative reconstruction. COMPARISON: None. CT DOSE (mGy.cm): The estimated cumulative dose is 537.48 mGy.cm. FINDINGS: Lithographic Proofer topogram: The patient is edentulous. Proportional ventricular and sulcal prominence, likely age-related parenchymal volume loss. No hemorrhage. Brain parenchyma normal in appearance with preserved keating-white differentiation. No acute territorial infarct. No mass effect or midline shift. No extra-axial fluid collection. Paranasal sinuses and mastoid air cells clear. Calvarium intact. IMPRESSION: 1. No acute intracranial abnormality. Electronically signed by: Montez Bateman M.D. 04/02/2019 2:[address] abd pelvis wo con CLINICAL HISTORY: 89 years-old Male presenting with new renal failure. TECHNIQUE: Multidetector CT of the abdomen and pelvis was performed without the use of intravenous contrast. IV contrast: None. One or more dose lowering techniques were used consistent with the principles of ALARA (as low as reasonably achievable), including automatic exposure control, mA or kV adjustment to individual patient size, and/or use of iterative reconstruction. COMPARISON: None. CT DOSE (mGy.cm): The estimated cumulative dose is 258.30 mGy.cm. FINDINGS: Lithographic Proofer topogram: Unremarkable. Lung bases: Normal heart size. Coronary artery and aortic valve calcification. No pericardial or pleural effusion. Trace lower lobe bronchiectasis suggested. Minimal reticulation in a subpleural distribution may suggest scarring. Liver: Normal morphology. Normal density. Few subcentimeter well-defined hypodense lesions likely hepatic cysts or hamartomas. Biliary: No gross biliary ductal dilatation allowing for noncontrast technique. Hyperdense material within the gallbladder dependently may represent sludge. The gallbladder is physiologically distended. Pancreas: Mild parenchymal atrophy. Spleen: Normal noncontrast appearance. Adrenal glands: Normal noncontrast appearance. Kidneys and ureters: Normal noncontrast appearance. Few parapelvic cyst suggested in the left kidney. No nephrolithiasis. No hydronephrosis. Normal ureters. Bladder: Circumferential bladder wall thickening. Several bladder diverticula noted. Pelvic organs: Prostate enlargement likely secondary to benign prostatic hyperplasia. Asymmetric bulging contour in the right peripheral zone. Bowel: Diverticulosis of the sigmoid colon without wall thickening or pericolonic inflammatory change. Mild stool burden throughout normal caliber left colon. The appendix is not visualized. No bowel obstruction. Peritoneal cavity: No free fluid or intraperitoneal gas. Lymph nodes: No gross lymphadenopathy allowing for noncontrast technique. Vasculature: Atherosclerosis of the normal caliber abdominal aorta. Abdominal wall: Normal. Musculoskeletal: Degenerative changes of the spine. Calcification in the region of the hip joints may represent osteochondromatosis or calcification of synovium. IMPRESSION: 1. No hydronephrosis or nephrolithiasis. Normal noncontrast evaluation of the kidneys. 2. 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 Several bladder diverticula. 3. Bulging contour of the right aspect of the prostate. An underlying lesion is not excluded. Correlate with PSA. Consider nonurgent outpatient prostate MRI if there is concern. 4. Diverticulosis coli. No evidence of diverticulitis. 5. Hyperdense material in the gallbladder may represent sludge. 6. Degenerative changes of the hips. Electronically signed by: Montez Bateman M.D. 04/02/2019 3:51 PM ECG Data Attestation: I personally reviewed and interpreted this ECG as follows: Indication: altered mental status Rate (beats per minute): 85 Rhythm: sinus rhythm Findings: + other (normal axis, normal intervals); no PAC, no PVC, no ST depression, no ST elevation, no acute ischemic change and no ectopy Blood Pressure Blood Pressure Findings: Normal blood pressure Blood Pressure Disposition: did not require urgent referral MDM Narrative [facility] in [facility] who called 911 due to concern for possible increasing confusion. Patient here denied any complaints and oriented with exception of question regarding months. Patient afebrile and hemodynamically stable throughout. Patient found to be significantly dehydrated on physical exam, with new renal failure and hypernatremia likely secondary to his hypovolemia. Given renal failure and eventual information the patient not been seen by a physician in 2 years, patient sent for CT of the abdomen and pelvis to rule out additional obstructive uropathy or postobstructive renal failure. CT the abdomen pelvis otherwise unremarkable. Patient does have prostatic hypertrophy. Nurses attempted to obtain a cath UA but were unsuccessful due to foreskin adhered over glands obscuring visualization of the urethral meatus. A condom catheter could not be applied either due to si gnificant retraction into the superior scrotal region. Case was discussed with hospitalist for additional inpatient evaluation and management including difficulties obtaining UA. Patient was in agreement with plan at this time. I do not suspect bacteremia/sepsis. We will continue attempts at obtaining UA to rule out UTI as a contributing factor in his new renal failure. No evidence on CT of pyelonephritis. Impression & Plan Acute renal failure, Altered mental status, Hypernatremia, Dehydration, Tachypnea, Thrombocytopenia Discharge Plan Visit Data *Final* Discharge Date/Time: 04/02/19 17:04 Chief Complaint: Altered Mental Status Stated Complaint: ALTERED LEVEL CONSCIOUSNESS ED Provider: Kristyn Trinh Discharge Problem: Acute renal failure, Altered mental status, Hypernatremia, Dehydration, Tachypnea, Thrombocytopenia Patient Disposition: Admitted As Inpatient Discharge Instructions Interventions: ED Discharge Assessment Last Done: 04/02/19 17:04 Discharge Problem: Acute renal failure Qualifiers: Acute renal failure type: unspecified Qualified Code(s): N17.9 - Acute kidney failure, unspecified Altered mental status Qualifiers: Altered mental status type: unspecified Qualified Code(s): R41.82 - Altered mental status, unspecified The scribe's documentation has been prepared under my direction and personally reviewed by me in its entirety. I confirm that the note above accurately reflects all work, treatment, procedures, and medical decision making performed by me.
[2019-04-02 22:36] LABS: Appearance Urine Cloudy (Clear); Color Urine Yellow; Glucose Urine UA Negative (Negative); Protein Urine 1+ (Negative); Specific Gravity Urine 1.021 (1.000-1.030)
[2019-04-02 22:37] LABS: Bilirubin Urine Negative (Negative); Ketones Urine Trace (Negative); Leukocyte Esterase Urine 3+ (Negative); Nitrite Urine Positive (Negative); Urobilinogen Urine Negative (Negative)
[2019-04-02 22:39] LABS: Bacteria Urine 1+ (Negative); WBC Urine >30 /hpf (0-5)
[2019-04-02 22:58] LABS: Creatinine Clr Calc Pharmacy 18.6 ml/min; Est GFR (African American) 29.4; Est GFR (Non-African American) 25.3; Potassium 4.4 mmol/L (3.5-5.1)
[2019-04-03 01:36] LABS: BUN Creatinine Ratio 22.9 (10-20); Calcium 8.8 mg/dl (8.5-10.1); Creatinine Clr Calc Pharmacy 18.3 ml/min; Est GFR (African American) 28.7; Est GFR (Non-African American) 24.8; Potassium 4.2 mmol/L (3.5-5.1)
[2019-04-03] MEDS: DEXTROSE 5% 1,000 ML IV SCH ×2 (04:14→17:46)
[2019-04-03 06:01] LABS: Hematocrit (blood only) 45.9 % (42-52); Hemoglobin 15.1 g/dL (14.0-18.0); Mean Corpuscular Hgb Conc 32.9 g/dL (32-36); Mean Corpuscular Volume 102.2 fL (80-100); Mean Platelet Volume 11.7 fL (7.4-10.4); Platelet Count 136 K/uL (130-400); RDW Coefficient of Variation 14.7 % (11.5-14.5); Red Blood Count 4.49 M/uL (4.7-6.1); White Blood Count 8.42 K/uL (4.8-10.8)
[2019-04-03 06:42] LABS: BUN Creatinine Ratio 22.1 (10-20); Calcium 8.8 mg/dl (8.5-10.1); Creatinine Clr Calc Pharmacy 19.1 ml/min; Est GFR (African American) 30.2; Potassium 3.9 mmol/L (3.5-5.1)
[2019-04-03 06:47] LABS: Prostate Specific Antigen 4.77 ng/ml (0-4)
[2019-04-03] MEDS: HEPARIN SOD 5,000 UNIT/0.5 ML VIAL SQ SCH ×2 (09:53→20:22)
--- NOTE | 2019-04-03 12:13 | Nephrology Consultation ---
Date of Consultation April 03, 2019 Assessment & Plan (1) Acute renal failure superimposed on stage 3 chronic kidney disease: baseline creatinine 1.2. Presenting creatinine 2.5 on 04/02; impROVING TO 2.2 this am. -serial bmp as below -avoid nephrotoxins; f/u cxs - findings noted >> elevated PSA/ bulging prostate as well as bladder diverticula >> will need OP urology f/u -current meds acceptable; avoid nsaids and other nephrotoxins; no bp meds needed Present on Admission?: Yes (2) Metabolic encephalopathy: -multifactorial most likely in part from elevated sodium; depression or other processes may have role as well and primary service evaluating these; urine and blood cxs in process Present on Admission?: Yes (3) Hypernatremia: clinically improving > await repeat study; consider increasing rate of D5W to 100 mL hourly if sNa remains 150 or higher and respiratory status tolerates -at this point, q8-12 hr bmp acceptable and so ordered; other chemistries have been acceptable Present on Admission?: Yes History of Present Illness Reason for Consultation: hypernatremia, GERRI on CKD3 Requesting Physician: Dr Flores Attending Physician: Tee Flores MD History of Present Illness 89 y/o M admitted yesterday for dehydration after being found yesterday by neighbor w/ altered MS whom I'm asked to see for hypernatremia and GERRI on CKD3. His presenting sNa was 156 at 1300 yesterday and again at 1800; his sCreat was 2.5. Last OP creatinine in [facility] was 1.2 in 08/2018, for an eGFR in low 50s. PMH includes bladder CA, prostatic hypertrophy, HL, CKD3, OA, depression. He was started on D5W at 100 mL/hr after 1L NS and after admitting team discussed his care w/ me. His IVF were held ON d/t rapid correction then restarted at 60 mL/hr, where they run currently. He has had 2L in and 600 mL UOP. This am his creatinine is 2.2, sNa is 151. Pt is unreliable historian; he is alert, interactive; oriented to self only and very anxious, including anxious to get out of bed. Allergies Allergy/AdvReac Type Severity Reaction Status Date / Time nitrofurantoin Allergy Rash Unverified 04/02/19 12:50 [From Macrobid] Home Medications Home Medications Medication Instructions Recorded Confirmed Type melatonin 5 mg PO HS PRN 08/26/18 04/02/19 History cholecalciferol (vitamin D3) 1,000 unit PO DAILY 04/02/19 04/02/19 History [Vitamin D3] cyanocobalamin (vitamin B-12) 1,000 mcg PO DAILY 04/02/19 04/02/19 History [Vitamin B-12] garlic 1,000 mg PO DAILY 04/02/19 04/02/19 History lutein 20 mg PO DAILY 04/02/19 04/02/19 History pguhalctenbj-rqkxlals-ixzjkg 1 tab PO DAILY 04/02/19 04/02/19 History [Multivitamin 50 Plus] omega 0-gob-ijh-fish oil [Fish Oil] 2 cap PO DAILY 04/02/19 04/02/19 History vit C-E-zinc quj-mqnrug-avuvlz 2 tab PO DAILY 04/02/19 04/02/19 History [[facility]] vitamin E 1,000 unit PO DAILY 04/02/19 04/02/19 History Patient History Medical History BPH (benign prostatic hyperplasia) (Chronic) Depression with anxiety (Chronic) CKD (chronic kidney disease), stage III (Chronic) Osteoarthritis (Chronic) History of bladder cancer (Chronic) History of squamous cell carcinoma (Chronic) Bladder cancer (Chronic 08/08/14) Dyslipidemia (Chronic) Gout (Chronic) Surgical History History of appendectomy (Chronic) History of colonoscopy (Chronic) Family History Father Cancer Other Family history non-contributory Social History Preferred Language: [place] Communication Ability: Effective marital status: Single Current Living Situation: Alone Current Living Situation Comment: patient states he lives alone, has neighbor that checks on him frequently, he does not drive current occupational status: retired other: Ambulates with cane Feels Safe at Home: Yes Safety Concerns: Feels Safe At This Time Smoking Status: Former smoker Hx Alcohol Use: No Hx Substance Use: No Review of Systems Review of Systems: Unobtainable due to cognitive status (limited by cognitive status) Constitutional: no fever, no body aches, no fatigue and no weakness Respiratory: no cough and no dyspnea Cardiovascular: no chest pain and no edema Genitourinary: no dysuria, no urinary frequency, no urinary hesitancy and no nocturia Integumentary: no rash and no lesions Endocrine: denies thirst Physical Exam Constitutional: well developed, well nourished and + acute distress (mildly restless, anxious) on RA Eyes: EOM intact bilaterally ENMT: Ears: no external ear abnormality Nose: no external nose abnormality Mouth: + dry oral mucous membranes Neck: no nuchal rigidity Respiratory: normal respiratory effort Auscultation: lungs clear to auscultation bilaterally and + diminished lung sounds Cardiovascular: RRR, no murmur, no edema Gastrointestinal (Abdomen): Inspection/Auscultation: normal bowel sounds Percussion/Palpation: abdomen soft; abdomen nontender Musculoskeletal: Extremities: strength 5/5 throughout [place], fluent speech Skin: no rashes, warm and dry Neurologic: no tremor' + generalized weakness Psychiatric: Orientation: alert, oriented to person and + guarded; + not oriented to place and + not oriented to time Speech: normal rate/rhythm/volume of speech Affect: + anxious affect Cognition: attention grossly intact Insight: + limited insight Judgement: + limited judgement Results & Data Vital Signs (Past 12 Hours) Vital Signs Temp Pulse Resp BP Pulse Ox 04/03/19 08:13 36.3 C L 86 20 118/81 99 04/03/19 03:18 36.3 C L 87 19 98/61 L 93 Laboratory Results Abnormal lab results 04/02/19 04/02/19 04/02/19 Range/Units 13:10 13:10 13:38 RBC (4.7-6.1) M/uL MCV 101.0 H (80-100) fL RDW Std Deviation 54.3 H (36.4-46.3) fL RDW Coeff of Erick 15.0 H (11.5-14.5) % Plt Count 127 L (130-400) K/uL MPV 12.3 H (7.4-10.4) fL Immature Gran # (Auto) 0.05 H (0.00-0.02) K/uL Spencer # (Auto) 0.75 H (0.11-0.59) K/uL Sodium 156 H* (136-145) mmol/L Chloride 124 H (98-107) mmol/L Carbon Dioxide 20 L (21-32) mmol/L Anion Gap 12.0 H (3-11) BUN 59 H (7-18) mg/dl Creatinine 2.53 H (0.6-1.4) mg/dl BUN/Creatinine Ratio 23.1 H (10-20) Glucose 107 H (70-99) mg/dl Osmolality (280-300) mOsm/kg POC Lactic Acid Soy 1.83 H (0.90-1.70) mmol/L Magnesium 2.7 H (1.8-2.4) mg/dl Albumin 3.3 L (3.4-5.0) gm/dl Globulin 4.1 H (2.5-4.0) gm/dl Albumin/Globulin Ratio 0.8 L (0.9-2) Prostate Specific Ag (0-4) ng/ml Urine Appearance (Clear) Urine Protein (Negative) Urine Ketones (Negative) Urine Blood (Negative) Urine Nitrite (Negative) Ur Leukocyte Esterase (Negative) Urine RBC (0-4) /hpf Urine WBC (0-5) /hpf Ur Epithelial Cells (0-5) /lpf Urine Bacteria (Negative) Hyaline Casts (0-5) /lpf Granular Casts (0) /lpf U Random Total Protein (0-11.9) mg/dl Protein/Creatinin Ratio (0-0.2) 04/02/19 04/02/19 04/02/19 Range/Units 15:41 17:42 21:37 RBC (4.7-6.1) M/uL MCV (80-100) fL RDW Std Deviation (36.4-46.3) fL RDW Coeff of Erick (11.5-14.5) % Plt Count (130-400) K/uL MPV (7.4-10.4) fL Immature Gran # (Auto) (0.00-0.02) K/uL Spencer # (Auto) (0.11-0.59) K/uL Sodium 156 H* (136-145) mmol/L Chloride 130 H (98-107) mmol/L Carbon Dioxide 18 L (21-32) mmol/L Anion Gap (3-11) BUN 54 H (7-18) mg/dl Creatinine 2.17 H D (0.6-1.4) mg/dl BUN/Creatinine Ratio 25.0 H (10-20) Glucose 131 H (70-99) mg/dl Osmolality 348 H (280-300) mOsm/kg POC Lactic Acid Soy (0.90-1.70) mmol/L Magnesium (1.8-2.4) mg/dl Albumin (3.4-5.0) gm/dl Globulin (2.5-4.0) gm/dl Albumin/Globulin Ratio (0.9-2) Prostate Specific Ag (0-4) ng/ml Urine Appearance Cloudy A (Clear) Urine Protein 1+ H (Negative) Urine Ketones Trace H (Negative) Urine Blood 2+ H (Negative) Urine Nitrite Positive A (Negative) Ur Leukocyte Esterase 3+ H (Negative) Urine RBC 5-10 H (0-4) /hpf Urine WBC >30 H (0-5) /hpf Ur Epithelial Cells 20-30 H (0-5) /lpf Urine Bacteria 1+ H (Negative) Hyaline Casts 10-30 H (0-5) /lpf Granular Casts 1-5 H (0) /lpf U Random Total Protein (0-11.9) mg/dl Protein/Creatinin Ratio (0-0.2) 04/02/19 04/02/19 04/03/19 Range/Units 22:20 Unknown 00:42 RBC (4.7-6.1) M/uL MCV (80-100) fL RDW Std Deviation (36.4-46.3) fL RDW Coeff of Erick (11.5-14.5) % Plt Count (130-400) K/uL MPV (7.4-10.4) fL Immature Gran # (Auto) (0.00-0.02) K/uL Spencer # (Auto) (0.11-0.59) K/uL Sodium 153 H 153 H (136-145) mmol/L Chloride 128 H 124 H (98-107) mmol/L Carbon Dioxide 17 L (21-32) mmol/L Anion Gap (3-11) BUN 53 H 52 H (7-18) mg/dl Creatinine 2.22 H 2.26 H (0.6-1.4) mg/dl BUN/Creatinine Ratio 24.0 H 22.9 H (10-20) Glucose 121 H 116 H (70-99) mg/dl Osmolality (280-300) mOsm/kg POC Lactic Acid Soy (0.90-1.70) mmol/L Magnesium (1.8-2.4) mg/dl Albumin (3.4-5.0) gm/dl Globulin (2.5-4.0) gm/dl Albumin/Globulin Ratio (0.9-2) Prostate Specific Ag (0-4) ng/ml Urine Appearance (Clear) Urine Protein (Negative) Urine Ketones (Negative) Urine Blood (Negative) Urine Nitrite (Negative) Ur Leukocyte Esterase (Negative) Urine RBC (0-4) /hpf Urine WBC (0-5) /hpf Ur Epithelial Cells (0-5) /lpf Urine Bacteria (Negative) Hyaline Casts (0-5) /lpf Granular Casts (0) /lpf U Random Total Protein 75.1 H (0-11.9) mg/dl Protein/Creatinin Ratio 0.6 H (0-0.2) 04/03/19 04/03/19 Range/Units 05:44 05:44 RBC 4.49 L (4.7-6.1) M/uL MCV 102.2 H (80-100) fL RDW Std Deviation 55.0 H (36.4-46.3) fL RDW Coeff of Erick 14.7 H (11.5-14.5) % Plt Count (130-400) K/uL MPV 11.7 H (7.4-10.4) fL Immature Gran # (Auto) (0.00-0.02) K/uL Spencer # (Auto) (0.11-0.59) K/uL Sodium 151 H (136-145) mmol/L Chloride 122 H (98-107) mmol/L Carbon Dioxide 20 L (21-32) mmol/L Anion Gap (3-11) BUN 48 H (7-18) mg/dl Creatinine 2.17 H (0.6-1.4) mg/dl BUN/Creatinine Ratio 22.1 H (10-20) Glucose 102 H (70-99) mg/dl Osmolality (280-300) mOsm/kg POC Lactic Acid Soy (0.90-1.70) mmol/L Magnesium (1.8-2.4) mg/dl Albumin (3.4-5.0) gm/dl Globulin (2.5-4.0) gm/dl Albumin/Globulin Ratio (0.9-2) Prostate Specific Ag 4.770 H (0-4) ng/ml Urine Appearance (Clear) Urine Protein (Negative) Urine Ketones (Negative) Urine Blood (Negative) Urine Nitrite (Negative) Ur Leukocyte Esterase (Negative) Urine RBC (0-4) /hpf Urine WBC (0-5) /hpf Ur Epithelial Cells (0-5) /lpf Urine Bacteria (Negative) Hyaline Casts (0-5) /lpf Granular Casts (0) /lpf U Random Total Protein (0-11.9) mg/dl Protein/Creatinin Ratio (0-0.2) Diagnostic Findings CT abd/pelvis non con 1. No hydronephrosis or nephrolithiasis. Normal noncontrast evaluation of the kidneys. 2. 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 Several bladder diverticula. 3. Bulging contour of the right aspect of the prostate. An underlying lesion is not excluded. Correlate with PSA. Consider nonurgent outpatient prostate MRI if there is concern. 4. Diverticulosis coli. No evidence of diverticulitis. 5. Hyperdense material in the gallbladder may represent sludge. 6. Degenerative changes of the hips. Head CT > no acute i-c process CXR > no acute CP process (1) Acute renal failure superimposed on stage 3 chronic kidney disease Acute renal failure type: unspecified Qualified Code(s): N17.9 - Acute kidney failure, unspecified; N18.3 - Chronic kidney disease, stage 3 (moderate)
[2019-04-03 12:17] LABS: BUN Creatinine Ratio 23.2 (10-20); Creatinine Clr Calc Pharmacy 23.8 ml/min; Est GFR (African American) 35.2; Est GFR (Non-African American) 30.4; Potassium 4.2 mmol/L (3.5-5.1)
[2019-04-03] MEDS: CEFEPIME 1,000 MG in SYRINGE 0 ML IV SCH (15:13)
--- NOTE | 2019-04-03 17:15 | Hospitalist Progress Note ---
Date of Service April 03, 2019 Assessment & Plan (1) Acute renal failure superimposed on stage 3 chronic kidney disease: (2) Metabolic encephalopathy: (3) Dehydration: Hypernatremia -This is a 89-year-old male who has a significant past medical history of bladder cancer, BPH, HLD, CKD stage III, depression/anxiety, osteoarthritis who presents to [facility] ED secondary to altered mental status found by neighbor with acute kidney injury and hypernatremia -admission serum sodium of 156 on 04/03/19 and it is unclear whether or not this is an acute or chronic hypernatremia -currently on D5 water and last serum sodium level is 152 around noon time of 04/04/19. will continue D5 fluid as 100 cc/hr for now and try to avoid overcorrection of serum sodium levels -acute kidney injury improving with IV fluids -mental status appears to be stable and it may be that there has been an acute metabolic encephalopathy with underlying cognitive changes of aging -has been on cefepime on admission in case of underlying infection as a cause of confusion besides the hypernatremia - continue cefepime for now while awaiting blood cultures (4) BPH (benign prostatic hyperplasia): History of prostate cancer Urinary retention -Patient's jeremy Walker ([phone]) who lives in [place] have been notified after patient gave the phone number and permission to call and she did indicate history of prostate cancer in the past -and admission CT scan does show chronic bladder L obstruction secondary to prostatomegaly, Several bladder diverticula, and Bulging contour of the right aspect of the prostate for which an underlying lesion is not excluded -PSA 4.7 on 04/03/19 but there may have been some elevation of PSA contributed by insertion of meek for urinary retention -continue meek catheter for now -give tamsulosin -will consult urology service (5) Dyslipidemia: History of hyperlipidemia -hold off on statins while being acutely treated for hypernatremia (6) DVT prophylaxis: SQ Heparin 5,000U Q12 PT/OT evaluations Subjective Patient cooperating with medical doctor. denies acute pain. follows directions. no shortness of breath. breathing on room air. remains on IV fluids. no headache or dizziness Physical Exam Constitutional: WD/WN, vitals as above Eyes: PERRL, conjunctivae normal, anicteric sclerae EOM intact bilaterally ENMT: external ear and nose normal, oropharynx normal Neck: trachea midline, no thyromegaly normal visual inspection Respiratory: normal respiratory effort, lungs clear to auscultation Cardiovascular: RRR, no murmur, no edema Gastrointestinal (Abdomen): normal bowel sounds, soft, nontender, no hepatosplenomegaly Musculoskeletal: no cyanosis or clubbing, extremities motor strength 5/5 Head/Neck/Chest: normocephalic and head atraumatic Neurologic: PERRL, EOMI, accommodation nl, no face palsy, no dysarthria Psychiatric: Orientation: alert and cooperative Results & Data Vital Signs (Past 12 Hours) Vital Signs Temp Pulse Resp BP Pulse Ox 04/03/19 16:13 36.6 C 81 18 144/87 H 97 04/03/19 08:13 36.3 C L 86 20 118/81 99 (1) Acute renal failure superimposed on stage 3 chronic kidney disease Acute renal failure type: unspecified Qualified Code(s): N17.9 - Acute kidney failure, unspecified; N18.3 - Chronic kidney disease, stage 3 (moderate)
[2019-04-03] MEDS: TAMSULOSIN HCL 0.4 MG CAP PO SCH (20:38)
[2019-04-03 20:55] LABS: BUN Creatinine Ratio 20.4 (10-20); Calcium 8.9 mg/dl (8.5-10.1); Creatinine Clr Calc Pharmacy 26.3 ml/min; Est GFR (African American) 39.7; Est GFR (Non-African American) 34.2
[2019-04-04 04:38] LABS: BUN Creatinine Ratio 18.7 (10-20); Calcium 8.8 mg/dl (8.5-10.1); Creatinine Clr Calc Pharmacy 26.3 ml/min; Est GFR (African American) 39.7; Est GFR (Non-African American) 34.2; Potassium 3.9 mmol/L (3.5-5.1)
[2019-04-04] MEDS: HEPARIN SOD 5,000 UNIT/0.5 ML VIAL SQ SCH ×2 (07:57→21:15)
--- NOTE | 2019-04-04 10:45 | Urology Consultation ---
Date of Consultation April 04, 2019 Assessment & Plan (1) BPH (benign prostatic hyperplasia): Urinary retention. Greco in place draining clear yellow urine - will maintain. Patients confusion is improving and he states that he will take his Flomax. Patient is scheduled for his annual follow up including cystoscopy on 04/18/19 @ [address] Bhatt. Patient is agreeable to maintaining Greco until then. Will address elevated PSA at that time. Patient does mention difficulty with transportation to appointments - would consider case management consult if not already placed. Thank you for allowing us to participate in the acute care of Mr. Gomez. Please contact our service if we can be of further assistance during hospitalization. (2) Bladder cancer: (3) Urinary retention: History of Present Illness Attending Physician: Tee Flores MD History of Present Illness 89 YO male with urinary retention. Patient is established with Dr. Bhatt, history of bladder cancer. Admitted to the hospital due to altered mental status which has improved with rehydration. Greco was inserted yesterday due to worsening retention and patient refusal to take Flomax. CT scan is reviewed and is without hydronephrosis, does demonstrate prostatic enlargement and bladder wall thickening. Reports feeling well this morning. No pain. Greco remains in place and is not bothersome. Allergies Allergy/AdvReac Type Severity Reaction Status Date / Time nitrofurantoin Allergy Rash Unverified 04/02/19 12:50 [From Macrobid] Home Medications Home Medications Medication Instructions Recorded Confirmed Type melatonin 5 mg PO HS PRN 08/26/18 04/02/19 History cholecalciferol (vitamin D3) 1,000 unit PO DAILY 04/02/19 04/02/19 History [Vitamin D3] cyanocobalamin (vitamin B-12) 1,000 mcg PO DAILY 04/02/19 04/02/19 History [Vitamin B-12] garlic 1,000 mg PO DAILY 04/02/19 04/02/19 History lutein 20 mg PO DAILY 04/02/19 04/02/19 History rsnfttfxckbj-totokqbw-tyyfzz 1 tab PO DAILY 04/02/19 04/02/19 History [Multivitamin 50 Plus] omega 6-cls-zla-fish oil [Fish Oil] 2 cap PO DAILY 04/02/19 04/02/19 History vit C-E-zinc ykj-leetvm-kjzsgc 2 tab PO DAILY 04/02/19 04/02/19 History [[facility]] vitamin E 1,000 unit PO DAILY 04/02/19 04/02/19 History Patient History Medical History BPH (benign prostatic hyperplasia) (Chronic) Depression with anxiety (Chronic) CKD (chronic kidney disease), stage III (Chronic) Osteoarthritis (Chronic) History of bladder cancer (Chronic) History of squamous cell carcinoma (Chronic) Bladder cancer (Chronic 08/08/14) Dyslipidemia (Chronic) Gout (Chronic) Surgical History History of appendectomy (Chronic) History of colonoscopy (Chronic) Family History Father Cancer Other Family history non-contributory Social History Preferred Language: Malagasy Communication Ability: Effective marital status: Single Current Living Situation: Alone Current Living Situation Comment: patient states he lives alone, has neighbor that checks on him frequently, he does not drive current occupational status: retired other: Ambulates with cane Feels Safe at Home: Yes Safety Concerns: Feels Safe At This Time Smoking Status: Former smoker Hx Alcohol Use: No Hx Substance Use: No Review of Systems Constitutional: no fever and no chills Eyes: + corrective lenses Ear, Nose, Mouth, Throat: no hearing loss Respiratory: no dyspnea Cardiovascular: no chest pain Gastrointestinal: no abdominal pain, no nausea and no vomiting Genitourinary: no hematuria Musculoskeletal: no back pain Endocrine: no fatigue Allergy / Immunological: no problem reported Physical Exam Constitutional: no acute distress ENMT: Ears: no hearing impairment Neck: normal visual inspection Respiratory: normal respiratory effort; does not use accessory muscles Cardiovascular: Vessels: no JVD Gastrointestinal (Abdomen): Percussion/Palpation: abdomen soft; abdomen nontender Psychiatric: Orientation: alert and cooperative Genitourinary: bladder normal to palpation; no CVA tenderness Results & Data Vital Signs (Past 12 Hours) Vital Signs Temp Pulse Resp BP Pulse Ox 04/04/19 06:47 36.5 C 59 L 18 106/69 98 04/03/19 22:56 36.8 C 54 L 19 98/60 L 100
--- NOTE | 2019-04-04 15:22 | Hospitalist Progress Note ---
Date of Service April 04, 2019 Assessment & Plan (1) Acute renal failure superimposed on stage 3 chronic kidney disease: (2) Metabolic encephalopathy: (3) Dehydration: Hypernatremia -This is a 89-year-old male who has a significant past medical history of bladder cancer, BPH, HLD, CKD stage III, depression/anxiety, osteoarthritis who presents to [facility] ED secondary to altered mental status found by neighbor with acute kidney injury and hypernatremia -admission serum sodium of 156 on 04/03/19 and it is unclear whether or not this is an acute or chronic hypernatremia -04/04/19 AM when serum sodium 146 -acute kidney injury improving with IV fluids -mental status appears to be stable and it may be that there has been an acute metabolic encephalopathy with underlying cognitive changes of aging versus an underlying dementia Urinary tract infection -has been on cefepime on admission in case of underlying infection as a cause of confusion besides the hypernatremia - continue cefepime for now while urine culture sensitives which is gram negative bacilli. blood cultures are negatuve (4) BPH (benign prostatic hyperplasia): History of prostate cancer Urinary retention -Patient's jeremy Walker ([phone]) who lives in [place] have been notified after patient gave the phone number and permission to call and she did indicate history of prostate cancer in the past -and admission CT scan does show chronic bladder L obstruction secondary to prostatomegaly, Several bladder diverticula, and Bulging contour of the right aspect of the prostate for which an underlying lesion is not excluded -PSA 4.7 on 04/03/19 but there may have been some elevation of PSA contributed by insertion of meek for urinary retention -continue meek catheter for now -give tamsulosin -urology service consult: Patient is scheduled for his annual follow up including cystoscopy on 04/18/[address] Bhatt. Patient is agreeable to maintaining Meek until then and address elevated PSA at that time. (5) Dyslipidemia: History of hyperlipidemia -hold off on statins while being acutely treated for hypernatremia (6) DVT prophylaxis: SQ Heparin 5,000U Q12 PT/OT evaluations Subjective Patient was visited by his friend Teresa [phone] who is in patient's senior apartment building. She reports that patient has been behaving in the past year of always joking around and has concerns whether his behavior has been consistent with that of those around him and for example when they go to [employer] restaurant, the patient would 4 subway sandwiches and save them at home for later and that at one point he got sick from eating the sandwiches. She also reports that patient has TV dinners but no one seen him eat as they are in private apartments. However that before coming to the hospital that another friend found him bedridden and thats when they called for medical attention prior to hospital stay Patient seen and examined at bedside. He appears to be making jokes and did not seem that interested in listening about his current medical care. patient denies of symptoms of pain. he appears to be breathing comfortably. Patient continues to have meek. Serum sodium is getting better. Urine with gram negative bacili Physical Exam Constitutional: WD/WN, vitals as above Eyes: PERRL, conjunctivae normal, anicteric sclerae EOM intact bilaterally ENMT: external ear and nose normal, oropharynx normal Neck: trachea midline, no thyromegaly normal visual inspection Respiratory: normal respiratory effort, lungs clear to auscultation Cardiovascular: RRR, no murmur, no edema Gastrointestinal (Abdomen): normal bowel sounds, soft, nontender, no hepato splenomegaly Musculoskeletal: no cyanosis or clubbing, extremities motor strength 5/5 Head/Neck/Chest: normocephalic and head atraumatic Neurologic: PERRL, EOMI, accommodation nl, no face palsy, no dysarthria Psychiatric: Orientation: alert and cooperative Genitourinary: + penis abnormality (meek) Results & Data Vital Signs (Past 12 Hours) Vital Signs Temp Pulse Resp BP Pulse Ox 04/04/19 06:47 36.5 C 59 L 18 106/69 98 (1) Acute renal failure superimposed on stage 3 chronic kidney disease Acute renal failure type: unspecified Qualified Code(s): N17.9 - Acute kidney failure, unspecified; N18.3 - Chronic kidney disease, stage 3 (moderate)
[2019-04-04] MEDS: CEFEPIME 1,000 MG in SYRINGE 0 ML IV SCH (16:51)
[2019-04-04] MEDS: TAMSULOSIN HCL 0.4 MG CAP PO SCH ×2 (21:15→21:40)
[2019-04-05 07:08] LABS: Basophils # (auto) 0.01 K/uL (0-0.2); Basophils % (auto) 0.1 %; Eosinophils # (auto) 0.07 K/uL (0-0.5); Eosinophils % (auto) 0.8 %; Hematocrit (blood only) 42.1 % (42-52); Hemoglobin 14.3 g/dL (14.0-18.0); Immature Granulocytes # (auto) 0.03 K/uL (0.00-0.02); Immature Granulocytes % (auto) 0.4 %; Lymphocytes # (auto) 1.68 K/uL (1.2-3.4); Lymphocytes % (auto) 19.7 %; Mean Corpuscular Volume 98.4 fL (80-100); Mean Platelet Volume 11.4 fL (7.4-10.4); Monocytes # (auto) 0.53 K/uL (0.11-0.59); Monocytes % (auto) 6.2 %; Neutrophils % (auto) 72.8 %; Platelet Count 142 K/uL (130-400); RDW Coefficient of Variation 14.4 % (11.5-14.5); Red Blood Count 4.28 M/uL (4.7-6.1); White Blood Count 8.52 K/uL (4.8-10.8)
[2019-04-05 07:38] LABS: Albumin Level 2.6 gm/dl (3.4-5.0); BUN Creatinine Ratio 17.4 (10-20); Calcium 9.2 mg/dl (8.5-10.1); Creatinine Clr Calc Pharmacy 27.4 ml/min; Est GFR (African American) 41.7; Potassium 4.3 mmol/L (3.5-5.1)
[2019-04-05 07:41] LABS: Albumin Globulin Ratio 0.6 (0.9-2); Bilirubin,Total 0.7 mg/dl (0.2-1); Globulin 4.1 gm/dl (2.5-4.0); Total Protein 6.7 gm/dl (6.4-8.2)
[2019-04-05] MEDS ORDERED: cefTRIAXone SODIUM 1,000 MG in DEXTROSE 5% 50 ML IV SCH (08:00)
[2019-04-05] MEDS ORDERED: cefTRIAXone SODIUM 1,000 MG/50 ML BAG IV SCH (08:00)
[2019-04-05] MEDS ORDERED: DEXTROSE 5% 1,000 ML IV SCH (08:00)
[2019-04-05] MEDS: HEPARIN SOD 5,000 UNIT/0.5 ML VIAL SQ SCH ×2 (08:12→21:33)
[2019-04-05] MEDS: cefTRIAXone SODIUM 1,000 MG in DEXTROSE 5% 50 ML IV SCH (08:26)
--- NOTE | 2019-04-05 08:53 | Nephrology Progress Note ---
Date of Service April 05, 2019 Assessment & Plan (1) Acute renal failure superimposed on stage 3 chronic kidney disease: baseline creatinine 1.2. Presenting creatinine 2.5 on 04/02; impROVING TO 1.7 this am. -serial bmp as below -avoid nephrotoxins; f/u cxs - findings noted >> elevated PSA/ bulging prostate as well as bladder diverticula >> will need OP urology f/u -current meds acceptable; avoid nsaids and other nephrotoxins; no bp meds needed (2) Metabolic encephalopathy: -multifactorial most likely in part from elevated sodium though this is being apporpriately corrected; depression or other processes may have role as well and primary service evaluating these; urine infection may have role and blood cxs neg (3) Hypernatremia: clinically improving > continue rate of D5W to 100 mL hourly if respiratory status tolerates AND will add 75 mEq/L sodium bicarb -at this point, q12-24 hr bmp acceptable; other chemistries have been acceptable Subjective does not interact this am; sits tapping breakfast tray eyes closed. does not particpiate in ros Review of Systems Review of Systems: Unobtainable due to cognitive status Physical Exam Constitutional: well developed, well nourished and + acute distress (again mildly restless) Eyes: EOM intact bilaterally ENMT: Ears: no external ear abnormality Nose: no external nose abnormality Mouth: + dry oral mucous membranes Neck: no nuchal rigidity Respiratory: normal respiratory effort Auscultation: lungs clear to auscultation bilaterally and + diminished lung sounds Cardiovascular: RRR, no murmur, no edema Gastrointestinal (Abdomen): Inspection/Auscultation: normal bowel sounds Percussion/Palpation: abdomen soft; abdomen nontender Musculoskeletal: Extremities: strength 5/5 throughout Skin: no rashes, warm and dry Neurologic: [place], does not speak Psychiatric: Speech: + mute Affect: + anxious affect Cognition: attention grossly intact Insight: + limited insight Judgement: + limited judgement Results & Data Vital Signs (Past 12 Hours) Vital Signs Temp Pulse Resp BP Pulse Ox 04/05/19 07:33 36.4 C L 94 H 20 108/74 94 04/04/19 23:47 36.5 C 94 H 20 109/70 94 Laboratory Results Abnormal lab results 04/05/19 04/05/19 Range/Units 06:55 06:55 RBC 4.28 L (4.7-6.1) M/uL RDW Std Deviation 51.0 H (36.4-46.3) fL MPV 11.4 H (7.4-10.4) fL Immature Gran # (Auto) 0.03 H (0.00-0.02) K/uL Sodium 149 H (136-145) mmol/L Chloride 123 H (98-107) mmol/L Carbon Dioxide 18 L (21-32) mmol/L BUN 29 H (7-18) mg/dl Creatinine 1.66 H (0.6-1.4) mg/dl Albumin 2.6 L (3.4-5.0) gm/dl Globulin 4.1 H (2.5-4.0) gm/dl Albumin/Globulin Ratio 0.6 L (0.9-2) (1) Acute renal failure superimposed on stage 3 chronic kidney disease Acute renal failure type: unspecified Qualified Code(s): N17.9 - Acute kidney failure, unspecified; N18.3 - Chronic kidney disease, stage 3 (moderate)
[2019-04-05] MEDS: SODIUM BICARBONATE 8.4% 75 MEQ in DEXTROSE 5% 1,000 ML IV SCH ×2 (09:27→21:31)
--- NOTE | 2019-04-05 13:27 | Hospitalist Progress Note ---
Date of Service April 05, 2019 Assessment & Plan (1) Acute renal failure superimposed on stage 3 chronic kidney disease: (2) Metabolic encephalopathy: (3) Dehydration: Hypernatremia -This is a 89-year-old male who has a significant past medical history of bladder cancer, BPH, HLD, CKD stage III, depression/anxiety, osteoarthritis who presents to [facility] ED secondary to altered mental status found by neighbor with acute kidney injury and hypernatremia -admission serum sodium of 156 on 04/03/19 and it is unclear whether or not this is an acute or chronic hypernatremia -04/04/19 AM when serum sodium 146 -acute kidney injury improving with IV fluids -mental status appears to be stable and it may be that there has been an acute metabolic encephalopathy with underlying cognitive changes of aging versus an underlying dementia versus infection Urinary tract infection -had been on daily cefepime from 04/02/19 in case of underlying infection as a cause of confusion besides the hypernatremia -the admission urine culture (which were drawn prior to meek) as generally pansensitive E.coli. on 04/05/[address] of cefepime -at this point, the urine tract has been treated for at least 3 days and should be completion of urinary antibiotics (4) BPH (benign prostatic hyperplasia): History of prostate cancer Urinary retention -Patient's jeremy Walker ([phone]) who lives in [place] have been notified after patient gave the phone number and permission to call and she did indicate history of prostate cancer in the past -and admission CT scan does show chronic bladder L obstruction secondary to pr ostatomegaly, Several bladder diverticula, and Bulging contour of the right aspect of the prostate for which an underlying lesion is not excluded -PSA 4.7 on 04/03/19 but there may have been some elevation of PSA contributed by insertion of meek for urinary retention -continue meek catheter for now -continue tamsulosin -urology service consult 04/04/19:Patient is scheduled for his annual follow up including cystoscopy on 04/18/[address] Bhatt. Patient is agreeable to maintaining Meek until then and address elevated PSA at that time. -completed at least 3 days of antibiotics for UTI (5) Dyslipidemia: History of hyperlipidemia -hold off on statins while being acutely treated for hypernatremia (6) DVT prophylaxis: SQ Heparin 5,000U Q12 staPT/OT evaluations deems patient to benefit from inpatient rehabilitation and immigration case worker has looked in [place]. However, today patient expressed d esires to go home after hospital stay Subjective Today we had long conversation and patient appears to demonstrate more interest in the medical issues of his health. He was explained the that the blood sodium levels are not at goal and what the follow ups with be for the meek issue. Also explained to patient about urinary tract infection. Patient cooperative on exam. He expresses interest to go home when medical workup is done rather go to a facility but hospitalist have assured him that more discussions will be made while patient is under the medical care while he is in the hospital no shortness of breath. no chest pain pain. no abdomen pain. patient reports he is eating and drinking fluids in the hospital. no vomiting. no nausea Physical Exam Constitutional: WD/WN, vitals as above Eyes: PERRL, conjunctivae normal, anicteric sclerae EOM intact bilaterally ENMT: external ear and nose normal, oropharynx normal Neck: trachea midline, no thyromegaly Respiratory: normal respiratory effort, lungs clear to auscultation Cardiovascular: RRR, no murmur, no edema Gastrointestinal (Abdomen): normal bowel sounds, soft, nontender, no hepatosplenomegaly Musculoskeletal: Head/Neck/Chest: normocephalic and head atraumatic Neurologic: PERRL, EOMI, accommodation nl, no face palsy, no dysarthria Psychiatric: Orientation: alert and cooperative Results & Data Vital Signs (Past 12 Hours) Vital Signs Temp Pulse Resp BP Pulse Ox 04/05/19 07:33 36.4 C L 94 H 20 108/74 94 (1) Acute renal failure superimposed on stage 3 chronic kidney disease Acute renal failure type: unspecified Qualified Code(s): N17.9 - Acute kidney failure, unspecified; N18.3 - Chronic kidney disease, stage 3 (moderate)
[2019-04-05] MEDS ORDERED: KETOROLAC TROMETHAMINE 15 MG/ML VIAL IV ONE (14:09)
[2019-04-05] MEDS: TAMSULOSIN HCL 0.4 MG CAP PO SCH (21:32)
[2019-04-06] MEDS: cefTRIAXone SODIUM 1,000 MG in DEXTROSE 5% 50 ML IV SCH (08:13)
[2019-04-06] MEDS: SODIUM BICARBONATE 8.4% 75 MEQ in DEXTROSE 5% 1,000 ML IV SCH ×2 (08:16→17:17)
[2019-04-06] MEDS: HEPARIN SOD 5,000 UNIT/0.5 ML VIAL SQ SCH ×2 (08:16→21:41)
--- NOTE | 2019-04-06 08:42 | Nephrology Progress Note ---
Date of Service April 06, 2019 Assessment & Plan (1) Acute renal failure superimposed on stage 3 chronic kidney disease: baseline creatinine 1.2. Presenting creatinine 2.5 on 04/02; impROVING TO 1.7 04/05 am. -serial bmp as below -avoid nephrotoxins; f/u cxs - findings noted >> elevated PSA/ bulging prostate as well as bladder diverticula >> will need OP urology f/u -current meds acceptable; avoid nsaids and other nephrotoxins; no bp meds needed >>>f/u today's labs (2) Metabolic encephalopathy: -multifactorial most likely in part from elevated sodium though this is being appoprriately corrected; depression or other processes may have role as well and primary service evaluating these; urine infection may have role and blood cxs neg (3) Hypernatremia: worsened as of yesterday am > continue rate of D5W to 100 mL hourly if respiratory status tolerates AND with 75 mEq/L sodium bicarb -at this point, q12-24 hr bmp acceptable; other chemistries have been acceptable Subjective walked > 100 feet w/ pt. still confused; minimal appetite. denies musculoskeletal abd pain or sob. Review of Systems Review of Systems: All systems reviewed & are unremarkable except as noted in HPI & below limited by pt MS/ willingness to participate Physical Exam Constitutional: well developed and well nourished; no acute distress Eyes: EOM intact bilaterally ENMT: Ears: no external ear abnormality Nose: no external nose abnormality Mouth: + dry oral mucous membranes Neck: no nuchal rigidity Respiratory: normal respiratory effort Auscultation: lungs clear to au scultation bilaterally and + diminished lung sounds Cardiovascular: RRR, no murmur, no edema Gastrointestinal (Abdomen): Inspection/Auscultation: normal bowel sounds Percussion/Palpation: abdomen soft; abdomen nontender Musculoskeletal: Extremities: strength 5/5 throughout Skin: no rashes, warm and dry Psychiatric: Orientation: alert, oriented to person and + guarded; + not oriented to place and + not oriented to time Speech: + mute Affect: + anxious affect Cognition: attention grossly intact Insight: + limited insight Judgement: + limited judgement Genitourinary: meek w/ ample urine Results & Data Vital Signs (Past 12 Hours) Vital Signs Temp Pulse Resp BP BP Pulse Ox 04/06/19 07:41 36.8 C 82 18 120/75 95 04/06/19 00:13 36.4 C L 83 20 107/69 93 (1) Acute renal failure superimposed on stage 3 chronic kidney disease Acute renal failure type: unspecified Qualified Code(s): N17.9 - Acute kidney failure, unspecified; N18.3 - Chronic kidney disease, stage 3 (moderate)
[2019-04-06 08:50] LABS: BUN Creatinine Ratio 16.2 (10-20); Calcium 8.9 mg/dl (8.5-10.1); Creatinine Clr Calc Pharmacy 30.5 ml/min; Est GFR (African American) 47.5; Potassium 3.7 mmol/L (3.5-5.1)
--- NOTE | 2019-04-06 13:22 | Hospitalist Progress Note ---
Date of Service April 06, 2019 Assessment & Plan (1) Metabolic encephalopathy: Appears to have resolved. (2) Acute renal failure superimposed on stage 3 chronic kidney disease: Improving to baseline, but not quite there. Creat 1.5 today with baseline 1.2. Cont current therapies. Appreciate renal input. (3) BPH (benign prostatic hyperplasia): h/o prostate cancer with urinary retention. Was having issues with Flomax compliance but did take his dose last night. Cont nightly tamsulosin. DC meek now in light of pressure ulcer. (4) Dyslipidemia: Takes simvastatin at home which may be a source of his muscle cramps. Will discontinue. (5) Pressure ulcer caused by device: Notified Urology who will re-evaluate. Meek removed as this is the likely source. Cont to leave open for now and consult wound care. Pain control as needed. (6) Hypernatremia: Resolved with bicarb drip per Nephrology. (7) E. coli UTI: Day 5 of IV abx-currently on Ceftriaxone. Will cont this pending wound culture from penis tip collected today. (8) Leg cramping: Possibly related to statin vs hospital immobilization vs other. Will check CK with next blood work. This is severe today and causing inability to move or walk. Gave potassium, and will try limited NSAIDs. Cont passive movements with nursing and PT/OT. Massage can help. Ambulate early and as tolerated to avoid deconditioning. (9) DVT prophylaxis: SQ Heparin 5,000U Q12 Full Code, however, niece is reportedly POA and states he is a DNR. She is sending legal paperwork to Case Management today. Dispo-poss to rehab in am. Cannot go unless cramps have resolved and pain is better under control. Ally Fry DO [facility] Hospitalist Subjective 89-year-old man presents from a fpc after nursing staff reported abnormal behavior and confusion with agitation. This patient lives alone does not drive and has a neighbor that checks on him frequently. On admission he was able to answer all orientation questions correctly with the exception of the month and had a normal neuro exam. Lab results revealed an GERRI with hyp onatremia, BUN/creatinine was 59/2.53 with a sodium of 156. A CT scan of the abdomen pelvis suggested chronic bladder outlet obstruction secondary to prostatomegaly and he was found to have a urinary tract infection. He was admitted to the hospitalist service for correction of his electrolytes and treatment of his renal dysfunction. He was started on free water nephrology has continued to adjust his fluids with a sodium of 144 today. IV cefepime was initiated and he was transitioned to ceftriaxone for an E. coli UTI. A Meek catheter is in place per urology recommendations who will see the patient in his annual follow-up as outpatient as outpatient later this month for his annual cystoscopy. PSA was noted to be elevated and this will be addressed at that time also. Renal function has continued to improve with nephrology management. Orientation has waxed and waned throughout the hospitalization. Today he is having severe leg cramps and cannot bend his legs much at all for nursing or myself. He is referencing pain in his calves and describes it similar to a yuko horse or cramps "but worse." He takes NSAIDs at home including Celebrex and Naproxen, but doesn't remember what he takes for these when they occur at home. He states he gets them on occasion, especially in the last few months. He cannot walk when this occurs. He is joking and laughing today otherwise and is appropriately answering questions although he doesn't articulate his words well, and this can be hard to understand. Aside from this, he denies any issues with urination prior to admission and d enies dysuria at this time. He does report some pain in the tip of his penis where there is a clear ulceration with some purulent drainage present, only when the nurse and I were evaluating this. Review of Systems Review of Systems: All systems reviewed & are unremarkable except as noted in HPI & below Physical Exam Physical Exam: CONSTITUTIONAL: WNWD, vitals as above, generally well- appearing EYES: normal conjunctivae, no scleral icterus ENT: MMM RESPIRATORY: clear to auscultation bilaterally, no crackles, rales or wheezes, normal respiratory effort CARDIOVASCULAR: regular rate and rhythm, S1 and 2 heard without murmurs, gallops or rubs, no JVD, no peripheral edema GASTROINTESTINAL: normal bowel sounds, soft, nontender, nondistended MUSCULOSKELETAL: cannot be ascertained as patient cannot move his legs easily-limited in knee flexion, calf muscles are TTP, head is normocephalic and atraumatic SKIN: warm and dry, Stage II ulceration on tip of penis in area where Meek catheter exits urethra. NEUROLOGIC: CN 2-12 grossly intact, normal cognition, poor insight into disease process, questionable how much he comprehends what is going on with him and why he is hospitalized PSYCHIATRIC: alert cooperative and oriented to person, place and time. LYMPHATIC: no LAD Results & Data Vital Signs (Past 12 Hours) Vital Signs Temp Pulse Resp BP Pulse Ox 04/06/19 07:41 36.8 C 82 18 120/75 95 Laboratory Results BMP 04/06/19 07:48 Sodium 144 Potassium 3.7 Chloride 114 H Carbon Dioxide 24 BUN 24 H Creatinine 1.49 H Glucose 114 H Calcium 8.9 Medications Administered Current Inpatient Medications Heparin Sodium (Porcine) (Heparin Sodium (Porcine)) 5,000 units SQ Q12 [facility] Stop: 05/02/19 20:59 Last Admin: 04/06/19 08:16 Dose: 5,000 units Documented by: Ceftriaxone Sodium 1,000 mg/ (Dextrose) 50 mls @ 100 mls/hr IV DAILY@0800 [facility]; Protocol Stop: 04/10/19 08:14 Last Infusion: 04/06/19 09:26 Dose: Infused Documented by: Sodium Bicarbonate 75 meq/ (Dextrose) 1,075 mls @ 100 mls/hr IV .[id number] [facility] Stop: 05/05/19 09:14 Last Admin: 04/06/19 08:16 Dose: 100 mls/hr Documented by: Ondansetron HCl (Zofran) 4 mg IV Q6H PRN PRN Reason: Nausea Stop: 05/02/19 17:00 Polyethylene Glycol (Miralax Powder Packet) 17 gm PO DAILY PRN PRN Reason: Constipation Stop: 05/02/19 17:00 Tamsulosin HCl (Flomax) 0.4 mg PO HS [facility] Stop: 05/03/19 20:59 Last Admin: 04/05/19 21:32 Dose: 0.4 mg Documented by: (1) Acute renal failure superimposed on stage 3 chronic kidney disease Acute renal failure type: unspecified Qualified Code(s): N17.9 - Acute kidney failure, unspecified; N18.3 - Chronic kidney disease, stage 3 (moderate)
[2019-04-06] MEDS ORDERED: POTASSIUM CHLORIDE 20 MEQ TABCR PO STA (14:04)
[2019-04-06] MEDS ORDERED: CYCLOBENZAPRINE HCL 10 MG TAB PO STA (21:21)
[2019-04-06] MEDS: TAMSULOSIN HCL 0.4 MG CAP PO SCH (21:40)
[2019-04-06] MEDS ORDERED: NAPROXEN 250 MG TAB PO STA (22:30)
[2019-04-06] MEDS ORDERED: ACETAMINOPHEN 325 MG TAB PO PRN (23:23)
[2019-04-07] MEDS: SODIUM BICARBONATE 8.4% 75 MEQ in DEXTROSE 5% 1,000 ML IV SCH (04:07)
[2019-04-07 07:00] LABS: Hematocrit (blood only) 38.9 % (42-52); Hemoglobin 13.3 g/dL (14.0-18.0); Mean Corpuscular Hgb Conc 34.2 g/dL (32-36); Mean Corpuscular Volume 97.3 fL (80-100); Mean Platelet Volume 11.3 fL (7.4-10.4); Platelet Count 141 K/uL (130-400); RDW Coefficient of Variation 13.9 % (11.5-14.5); RDW Standard Deviation 49.4 fL (36.4-46.3); White Blood Count 7.96 K/uL (4.8-10.8)
[2019-04-07 07:20] LABS: BUN Creatinine Ratio 13.3 (10-20); Calcium 8.2 mg/dl (8.5-10.1); Creatinine Clr Calc Pharmacy 33.2 ml/min; Est GFR (African American) 52.6; Est GFR (Non-African American) 45.4; Potassium 3.5 mmol/L (3.5-5.1)
[2019-04-07] MEDS ORDERED: NORMOSOL-R 1,000 ML IV SCH (08:30)
[2019-04-07] MEDS: cefTRIAXone SODIUM 1,000 MG in DEXTROSE 5% 50 ML IV SCH (08:42)
[2019-04-07] MEDS: HEPARIN SOD 5,000 UNIT/0.5 ML VIAL SQ SCH (10:01)
--- NOTE | 2019-04-07 15:22 | Urology Progress Note ---
Date of Service April 07, 2019 Assessment & Plan (1) Urinary retention: Lesion at tip of penis consistent with pressure ulcer due to Greco. Currently managed with cleaning and lubrication per wound team - will continue. Continue Tamsulosin and straight cath PRN. Outpatient URO follow up with Cysto as scheduled. Subjective 89 YO male with urinary retention, hx of bladder cancer. Greco was removed yesterday due to development of wound at the tip of penis. Has required straight catheterization since. Has been taking Tamsulosin more consistently. Reports feeling okay today. Denies pain to penis, tolerating straight catheterization without bother. Review of Systems Review of Systems: All systems reviewed & are unremarkable except as noted in HPI & below Physical Exam Physical Exam: NAD. Resp effort normal. No JVD. Abd soft/nontender. : bladder nontender/nondistended; uncircumcised phallus +Red lesion at tip bordering urethral opening, not painful; testicles and scrotum grossly normal. A&O x3 appropriate affect. Results & Data Vital Signs (Past 12 Hours) Vital Signs Temp Pulse Resp BP Pulse Ox 04/07/19 15:00 36.8 C 80 18 106/57 L 93 04/07/19 07:26 36.8 C 94 H 17 106/66 94
--- NOTE | 2019-04-07 15:37 | Discharge Summary ---
Date of Service April 07, 2019 Admission HPI Per Admitting Provider This is a 89-year-old male who has a significant past medical history of bladder cancer, BPH, HLD, CKD stage III, depression/anxiety, osteoarthritis who presents to [facility] ED secondary to altered mental status found by neighbor. Patient lives alone however has a neighbor that checks on him frequently. He does not drive and relies on neighbor. Apparently neighbor came over to check in on patient and found him standing in his underwear and felt to be more confused. EMS was summoned. Patient has very flat affect and I am unsure if ROS is reliable. He denies any recent illness, any fever, chills, sweats, lightheadedness, dizziness, chest pain, shortness of breath, cough, hemoptysis, nausea, vomiting, diarrhea, changes bowel or urinary habits, increased urgency or frequency with urination, hematuria, nocturia. He says he is very hungry and has not ate anything in a few days. He is not sure why he has not eaten anything but is requesting food. He says he drinks a lot of fluid, milk and root beer. He states he has no family close by. He has 1 brother who he is estranged from. He said approximately 1 to 2 years ago he had thoughts of committing suicide and therefore sold his gun. Currently he overall feels depressed but denies any suicidal or homicidal ideation. He states he just wants to, "go home." Admission Exam Per Admitting Provider Gen: Thin, elderly male, very blunted affect, minimal eye contact, answers questions appropriately but unsure how reliable , NAD, Head: Normocephalic, Atraumatic Eyes: Sclera normal, no conjunctival injection, PERRLA, EOMI ENT: Gross hearing intact, normal pharynx, mucous membranes very dry Neck: supple, no adenopathy, No JVD, no bruit, Resp: Clear to auscultation b/l, no wheeze, rales, rhonchi. Increased insp/exp effort, no accessory muscle use CV: Regular rate, regular rhythm, no murmur, rub, gallop, or ectopy Abd: +BS x 4, soft, tender to palpation in suprapubic region, nondistended Musculoskeletal: moves extremities active rom x 4, strength intact, good early breastfeeding care specialist strength Extremities: No edema bilaterally Skin: warm, very dry with sloughing of skin secondary to dryness/poor hygiene, no rash, significant turgor, cap refill < 2sec Neuro: Alert and oriented to self, place, year, president but not month, speech normal, very flat mood/affect, cran nerve 2-12 intact grossly : deferred Principal Diagnosis GERRI, Hypernatremia E coli UTI Metabolic encephalopathy Discharge Data Allergies Allergy/AdvReac Type Severity Reaction Status Date / Time nitrofurantoin Allergy Rash Unverified 04/02/19 12:50 [From Macrobid] Consultations 04/02/19 15:18 ED Decision to Admit Stat 04/02/19 16:22 Consult Nephrology Routine 04/02/19 17:01 Consult Case Management - Discharge Planning Routine 04/04/19 08:05 Consult Urology Routine Procedures Performed CT head/brain wo con CLINICAL HISTORY: 89 years-old Male presenting with ams. TECHNIQUE: Multidetector CT imaging of the head was performed without the use of intravenous contrast. IV contrast: None. One or more dose lowering techniques were used consistent with the principles of ALARA (as low as reasonably achievable), including automatic exposure control, mA or kV adjustment to individual patient size, and/or use of iterative reconstruction. COMPARISON: None. CT DOSE (mGy.cm): The estimated cumulative dose is 537.48 mGy.cm. FINDINGS: Application Internship topogram: The patient is edentulous. Proportional ventricular and sulcal prominence, likely age-related parenchymal volume loss. No hemorrhage. Brain parenchyma normal in appearance with preserved keating-white differentiation. No acute territorial infarct. No mass effect or midline shift. No extra-axial fluid collection. Paranasal sinuses and mastoid air cells clear. Calvarium intact. IMPRESSION: 1. No acute intracranial abnormality. XR chest 1V portable CLINICAL HISTORY: 89 years-old Male presenting with ams. TECHNIQUE: Portable upright AP view of the chest was obtained. COMPARISON: 08/26/2018. FINDINGS: Atherosclerosis of the aortic arch. Cardiac silhouette normal in size. No focal opacity. No large effusion or pneumothorax. Osseous structures normal. Upper abdomen normal. IMPRESSION: 1. No acute cardiopulmonary disease. CT abd pelvis wo con CLINICAL HISTORY: 89 years-old Male presenting with new renal failure. TECHNIQUE: Multidetector CT of the abdomen and pelvis was performed without the use of intravenous contrast. IV contrast: None. One or more dose lowering techniques were used consistent with the principles of ALARA (as low as reasonab ly achievable), including automatic exposure control, mA or kV adjustment to individual patient size, and/or use of iterative reconstruction. COMPARISON: None. CT DOSE (mGy.cm): The estimated cumulative dose is 258.30 mGy.cm. FINDINGS: Application Internship topogram: Unremarkable. Lung bases: Normal heart size. Coronary artery and aortic valve calcification. No pericardial or pleural effusion. Trace lower lobe bronchiectasis suggested. Minimal reticulation in a subpleural distribution may suggest scarring. Liver: Normal morphology. Normal density. Few subcentimeter well-defined hypodense lesions likely hepatic cysts or hamartomas. Biliary: No gross biliary ductal dilatation allowing for noncontrast technique. Hyperdense material within the gallbladder dependently may represent sludge. The gallbladder is physiologically distended. Pancreas: Mild parenchymal atrophy. Spleen: Normal noncontrast appearance. Adrenal glands: Normal noncontrast appearance. Kidneys and ureters: Normal noncontrast appearance. Few parapelvic cyst suggested in the left kidney. No nephrolithiasis. No hydronephrosis. Normal ureters. Bladder: Circumferential bladder wall thickening. Several bladder diverticula noted. Pelvic organs: Prostate enlargement likely secondary to benign prostatic hyperplasia. Asymmetric bulging contour in the right peripheral zone. Bowel: Diverticulosis of the sigmoid colon without wall thickening or pericolonic inflammatory change. Mild stool burden throughout normal caliber left colon. The appendix is not visualized. No bowel obstruction. Peritoneal cavity: No free fluid or intraperitoneal gas. Lymph nodes: No gross lymphadenopathy allowing for noncontrast technique. Vasculature: Atherosclerosis of the normal caliber abdominal aorta. Abdominal wall: Normal. Musculoskeletal: Degenerative changes of the spine. Calcification in the region of the hip joints may represent osteochondromatosis or calcification of synovium. IMPRESSION: 1. No hydronephrosis or nephrolithiasis. Normal noncontrast evaluation of the kidneys. 2. 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 Several bladder diverticula. 3. Bulging contour of the right aspect of the prostate. An underlying lesion is not excluded. Correlate with PSA. Consider nonurgent outpatient prostate MRI if there is concern. 4. Diverticulosis coli. No evidence of diverticulitis. 5. Hyperdense material in the gallbladder may represent sludge. 6. Degenerative changes of the hips. Ordered Studies 04/02/19 12:41 CT head/brain wo con Stat 04/02/19 14:58 CT abd pelvis wo con Stat Hospital Course (1) Metabolic encephalopathy: Appears to have resolved. (2) Acute renal failure superimposed on stage 3 chronic kidney disease: Improving to baseline, but not quite there. Creat 1.5 today with baseline 1.2. Cont current therapies. Appreciate renal input. (3) BPH (benign prostatic hyperplasia): h/o prostate cancer with urinary retention. Was having issues with Flomax compliance but did take his dose last night. Cont nightly tamsulosin. DC meek now in light of pressure ulcer. (4) Dyslipidemia: Takes simvastatin at home which may be a source of his muscle cramps. Will discontinue. (5) Pressure ulcer caused by device: Notified Urology who will re-evaluate. Meek removed as this is the likely source. Cont to leave open for now and consult wound care. Pain control as needed. (6) Hypernatremia: Resolved with bicarb drip per Nephrology. (7) E. coli UTI: Day 5 of IV abx-currently on Ceftriaxone. Will cont this pending wound culture from penis tip collected today. (8) Leg crampin-year-old man presents from a care home after nursing staff reported abnormal behavior and confusion with agitation. This patient lives alone does not drive and has a neighbor that checks on him frequently. On admission he was able to answer all orientation questions correctly with the exception of the month and had a normal neuro exam. Lab results revealed an GERRI with hypernatremia, BUN/creatinine was 59/2.53 with a sodium of 156. A CT scan of the abdomen pelvis suggested chronic bladder outlet obstruction secondary to prostatomegaly and he was found to have a urinary tract infection. He was admitted to the Hospitalist service for correction of his electrolytes and treatment of his renal dysfunction. He was started on a free water intravenous infusion. Nephrology was consulted and continued to adjust his fluids ultimately normalizing his sodium for 2 days prior to discharge. IV cefepime was initiated and he was transitioned to ceftriaxone for an E. coli UTI. A Meek catheter was placed on admission for evidence of urinary retention and urology was consulted. They recommended initially maintaining the Meek in place until seen in his annual outpatient follow-up/cystoscopy appointment later this month (history of bladder cancer). However, he was found to have a pressure ulcer at the tip of his penis likely secondary to the catheter. Therefore, the catheter was removed and he was continued on twice daily in and out self catheterizations, which were performed by nurses. This should be to be continued until follow-up with [facility] [place] [place] [facility]. He was seen by wound care for the pressure ulcer with recommended care including petroleum jelly to the area as needed. PSA was noted to be elevated at 4.77 and this will be addressed at that time, also. Renal function continued to improve closer to baseline with Nephrology management. Tamsulosin was started this hospitalization for evidence of BPH and should be continued. He did develop some leg cramps during his hospitalization which temporarily immobilized him and caused him significant pain, relieved by one dose of naproxen. He states the leg cramps have been coming intermittently over the last 4 to 7 months and he does not know the precipitating factor, but they are debilitating. He could not identify a way he treated them at home, but he reported being on Celebrex consistently, which is not recommended by Nephrology at this time. He was noted to be on simvastatin with a CK level in the 200s this admission. This was discontinued. Of note, he has not followed up with his primary care doctor, Dr. Mcclain since October 2017 and this will need to be set up as soon as feasible. A wound culture was performed from ulcerative lesion at tip of penis which was growing coag negative staph at time of discharge, likely a skin contaminant. Urine culture revealed E. coli and the patient was switched to cefdinir for an additional 3 days of antibiotics on discharge. Additionally blood cultures were negative for any growth at time of discharge. Although mental status appeared to wax and wane, he was mentating at baseline for up to 48 hours prior to discharge. At time of discharge a [id number] examination was performed revealing a hemodynamically stable and afebrile patient in no acute distress with no significant physical exam findings aside from the skin ulcer. Lungs were clear and heart sounds were normal without murmurs. No edema was present. He was moving his legs with ease and without evidence of pain. He was mentating at baseline and was generally deconditioned most likely from hospitalization and recent illnesses. He was sent to a rehabilitation program in stable condition with close primary care follow-up recommended. Per Nephrology recommendations he will need a basic metabolic panel in one week with results sent to Dr. Santi Mcclain at [facility] and Dr. Ashley Bear and [facility] Nephrology. He will need a follow-up appointment in the [facility] chronic kidney disease (CKD) in 6 to 8 weeks time. He will likely need assistance in making these appointments in an outpatient case assembler would be recommended to help with this. He will need to avoid NSAIDs in this timeframe. Total Time Total Time Spent Total Time Spent (In Minutes): 60 Total Time Includes: Examination of the Patient, Discharge Planning, Medication Reconciliation and Communication With Other Providers Discharge Plan Discharge Items Patient Disposition: Transfer Nursing Home [facility] Reason For Visit: GERRI HYPERNATREMIA CONFUSION Discharge Diagnosis: GERRI, Hypernatremia E coli UTI Metabolic encephalopathy Condition: Good Discharge Goals: Improve disease control, Improve function and Increase independence Activity: Resume your previous activity Non-emergency contact: Primary Care Provider Call non-emergency contact if: you have any medication questions, your symptoms worsen, your pain is not controlled, your pain is worsening, your pain is unusual for you, your pain is concerning for you and you have a fever Follow-up/Referrals: Santi Mcclain, DO [Primary Care Provider] - Diet: Low Sodium (2gm) Diet Texture: Mechanical soft (ground) Diet Comment: minced and moist food. Addtl Provider Instructions: Please take all medications as instructed on discharge list below. NEW MEDICATIONS: Cefdinir, Tamsulosin STOP TAKING: Simvastatin It is recommended that you follow-up with your primary care provider within 1 week of discharge from the [facility]ent[facility] facility. As recommended by [facility], you will need a basic metabolic panel in 1 week and a follow-up appointment in the CKD clinic, part of [facility] nephrology clinic in 6 to 8 weeks time. Avoid NSAIDs in this timeframe. It is recommended that you perform self-catheterization of your bladder twice daily and then as needed. At the receiving facility it is recommended that a bladder scan can be performed every 8 hours. Please continue taking Flomax daily and follow-up with Urology for your annual follow-up visit including cystoscopy on 04/18/2019 at 11:[address] Bhatt at [facility] office. Please apply petroleum jelly to pressure ulcer area on tip of penis until healed and avoid Meek if possible. It is recommended that you stop taking simvastatin which may be a source of your muscle cramps. It was a pleasure taking care of you! Please call if you have any questions or problems. You can reach a [facility] hospitalist on duty at [facility] 24 hours a day by calling [phone]. Take care of yourself. Ally Fry, DO [facility] Prescriptions: New tamsulosin 0.4 mg Capsule 0.4 mg PO HS Qty: 30 RF: 1 cefdinir 300 mg capsule 300 mg PO BID 3 Days Qty: 6 RF: 0 Continued vitamin E 1,000 unit Capsule 1,000 unit PO DAILY RF: 0 cyanocobalamin (vitamin B-12) [Vitamin B-12] 1,000 mcg Tablet 1,000 mcg PO DAILY RF: 0 garlic 1,000 mg Capsule 1,000 mg PO DAILY RF: 0 cholecalciferol (vitamin D3) [Vitamin D3] 1,000 unit Capsule 1,000 unit PO DAILY RF: 0 Multivitamin 50 Plus Tablet 1 tab PO DAILY RF: 0 omega 1-ovd-xdi-fish oil [Fish Oil] 1,000 mg (120 mg-180 mg) Capsule 2 cap PO DAILY RF: 0 lutein 20 mg Tablet 20 mg PO DAILY RF: 0 Ocuvite Eye Health 50 mg-15 unit- 4.5 mg-2.5 mg Tablet,Chewable 2 tab PO DAILY RF: 0 melatonin 5 mg Tablet 5 mg PO HS PRN (Reason: Sleep) RF: 0 Discontinued simvastatin 40 mg Tablet 40 mg PO HS RF: 0 Stand-Alone Forms: My [facility] Discharge Orders: Discharge Order (Routine); Ordered 04/07/19 Ordered By: Ally Fry Skilled Items Patient informed of condition?: Yes DNR: No Discharge Level of Care: Skilled Communicable Disease: No Discharge Prognosis: Stable Admission Data Admit Date/Time: 04/02/19 15:35 Attending Provider: Ally Fry Admit Provider: Tee Flores Primary Care Provider: Santi Mcclain Other Providers: Tee Flores ; Ashley Dyson ; Ramon Araiza ; Kel Gutierrez ; Hamzah Vaughan I. ; Rmaon Bhatt ; Naomi Rosa ; Micheal Ernandez II ; Meg Lopez Service: Medical Other Interventions: Discharge Summary Assessment (RN) Last Done: 04/07/19 15:59 DC Date/Time DO NOT enter until pt leaves facility: 04/07/19 17:15
--- NOTE | 2019-04-07 21:05 | Nephrology Progress Note ---
Date of Service April 07, 2019 Assessment & Plan (1) Acute renal failure superimposed on stage 3 chronic kidney disease: serum creatinine improved from 2.5 on exchange to 1.4 today w/ ongoing consistent iv fluid resuscitation -changed to normosol at 50 ml hourly; reasonable to stop this pm since d/c planned -recommend bmp in one week after d/c -recommend ckd clinic f/u any provider in 6-8 wks -avoid nsaids and other nephrotoxins -above was d/w dr hand Present on Admission?: Yes (2) Hypernatremia: resolved w/ aggressive tx; monitor as above; encourage po fluids Present on Admission?: Yes Subjective seen on rounds about midday. pt resting quietly, eyes closed. not willing to participate much in ros. denies pain, sob; meek removed yesterday d/t lesion at meatus from meek tubing Review of Systems Review of Systems: All systems reviewed & are unremarkable except as noted in HPI & below and Unobtainable due to cognitive status Respiratory: no dyspnea Cardiovascular: no chest pain and no edema Gastrointestinal: + early satiety; no nausea, no vomiting and no diarrhea/loose stools Musculoskeletal: nomusculoskeletal pain Physical Exam Constitutional: well developed and + thin sitting eyes closed on ra, minimally interactive but does respond appropriately Eyes: EOM intact bilaterally ENMT: Ears: no external ear abnormality Nose: no external nose abnormality Mouth: + dry oral mucous membranes Neck: no nuchal rigidity Respiratory: normal respiratory effort Auscultation: + diminished lung sounds Cardiovascular: Rate/Rhythm: regular rate and regular rhythm Extremities: no edema Gastrointestinal (Abdomen): Inspection/Auscultation: normal bowel sounds Percussion/Palpation: abdomen soft; abdomen nontender Musculoskeletal: Extremities: strength 5/5 throughout Skin: no rashes, warm and dry penis not examined Neurologic: [place], minimal but fluent speech, no tremor Genitourinary: no emek Results & Data Vital Signs (Past 12 Hours) Vital Signs Temp Pulse Resp BP BP Pulse Ox 04/07/19 15:59 36.8 C 80 18 106/57 L 120/75 93 04/07/19 15:00 36.8 C 80 18 106/57 L 93 Laboratory Results Abnormal lab results 04/07/19 04/07/19 Range/Units 06:36 06:36 RBC 4.00 L (4.7-6.1) M/uL Hgb 13.3 L (14.0-18.0) g/dL Hct 38.9 L (42-52) % RDW Std Deviation 49.4 H (36.4-46.3) fL MPV 11.3 H (7.4-10.4) fL Glucose 124 H (70-99) mg/dl Calcium 8.2 L (8.5-10.1) mg/dl (1) Acute renal failure superimposed on stage 3 chronic kidney disease Acute renal failure type: unspecified Qualified Code(s): N17.9 - Acute kidney failure, unspecified; N18.3 - Chronic kidney disease, stage 3 (moderate)
== END 2019-04-07 17:15 | DRG 682 ==
LOC: ED 12:20 → 2E 15:35 → SUATTDRO 15:35 → 2E 17:04 → 4W 04-03 17:11

== ENCOUNTER 2019-04-23 21:12 | Inpatient (IN) ==
[2019-04-23] MEDS ORDERED: SODIUM CHLORIDE 0.9% 500 ML IV SCH (21:45)
--- NOTE | 2019-04-23 22:10 | XRay Report ---
XR chest 1V portable HISTORY: 89 years-old Male Chest Pain acute atypical chest pain COMPARISON: Chest radiograph 04/02/2019 TECHNIQUE: Portable AP view of the chest FINDINGS: Cardiac silhouette is unchanged. Prominence of the right paratracheal tissues likely accentuated by p ositioning. No pneumothorax, pleural effusion or overt pulmonary edema. Mild chronic interstitial or spelling of the lung bases. Degenerative changes of the shoulders and spine. IMPRESSION: No acute process. The above report was generated using voice recognition software. It may contain grammatical, syntax o r spelling errors. Electronically signed by: Sonny Condon M.D. 04/23/2019 10:09 PM
[2019-04-23 22:11] LABS: Basophils # (auto) 0.03 K/uL (0-0.2); Basophils % (auto) 0.3 %; Eosinophils # (auto) 0.16 K/uL (0-0.5); Eosinophils % (auto) 1.8 %; Hematocrit (blood only) 37.7 % (42-52); Hemoglobin 12.3 g/dL (14.0-18.0); Immature Granulocytes # (auto) 0.02 K/uL (0.00-0.02); Immature Granulocytes % (auto) 0.2 %; Lymphocytes # (auto) 0.95 K/uL (1.2-3.4); Lymphocytes % (auto) 10.8 %; Mean Corpuscular Hgb Conc 32.6 g/dL (32-36); Mean Corpuscular Volume 99.7 fL (80-100); Mean Platelet Volume 10.5 fL (7.4-10.4); Monocytes # (auto) 0.58 K/uL (0.11-0.59); Monocytes % (auto) 6.6 %; Neutrophils # (auto) 7.04 K/uL (1.4-6.5); Neutrophils % (auto) 80.3 %; Platelet Count 227 K/uL (130-400); RDW Coefficient of Variation 14.3 % (11.5-14.5); RDW Standard Deviation 51.3 fL (36.4-46.3); Red Blood Count 3.78 M/uL (4.7-6.1); White Blood Count 8.78 K/uL (4.8-10.8)
--- NOTE | 2019-04-23 22:26 | CT Scan Report ---
CT head/brain wo con CLINICAL HISTORY: 89 years-old Male with ams. Acutely altered mental status TECHNIQUE: Multiple axial CT images of the head were obtained without contrast. A dose lowering tech nique was utilized adhering to the principles of ALARA. CT DOSE: 537.48 mGy.cm COMPARISON: Head CT 04/02/2019 FINDINGS: No acute intracranial hemorrhage, midline shift, intracranial mass, hydrocephalus, territorial ischem ia or abnormal extra-axial collection. Age-related involutional changes with ex vacuo ventriculomegal y. Patchy white matter hypodensities suggest chronic microvascular ischemic disease. The calvarium is intact. The paranasal sinuses, mastoid air cells, and middle ear cavities are clear . IMPRESSION: No acute intracranial abnormality. The above report was generated using voice recognition software. It may contain grammatical, syntax o r spelling errors. Electronically signed by: Sonny Condon M.D. 04/23/2019 10:24 PM
[2019-04-23 22:36] LABS: Alanine Aminotransferase 34 U/L (12-78); Albumin Globulin Ratio 0.5 (0.9-2); Albumin Level 2.4 gm/dl (3.4-5.0); Alkaline Phosphatase 101 U/L (45-117); BUN Creatinine Ratio 20.1 (10-20); Bilirubin,Total 0.6 mg/dl (0.2-1); Blood Urea Nitrogen 35 mg/dl (7-18); Calcium 9.3 mg/dl (8.5-10.1); Carbon Dioxide 26 mmol/L (21-32); Chloride 117 mmol/L (98-107); Est GFR (African American) 39.7; Est GFR (Non-African American) 34.2; Globulin 4.5 gm/dl (2.5-4.0); Glucose 115 mg/dl (70-99); Phosphorus 2.9 mg/dl (2.5-4.9); Total Protein 6.9 gm/dl (6.4-8.2); Troponin I < 0.015 ng/ml (0-0.045)
[2019-04-23 22:40] LABS: Appearance Urine Cloudy (Clear); Bacteria Urine Automated Negative (Negative); Bilirubin Urine Negative (Negative); Blood Urine Negative (Negative); Color Urine Dark Yellow; Glucose Urine UA Negative (Negative); Ketones Urine Negative (Negative); Leukocyte Esterase Urine Negative (Negative); Nitrite Urine Negative (Negative); Protein Urine 1+ (Negative); RBC Urine Automated 0-4 /hpf (0-4); Urobilinogen Urine Negative (Negative)
[2019-04-23 22:46] LABS: Aspartate Aminotransferase 38 U/L (15-37); Magnesium 2.7 mg/dl (1.8-2.4); Sodium 149 mmol/L (136-145)
[2019-04-23] MEDS ORDERED: SODIUM CHLORIDE 0.9% 500 ML IV ONE (23:49)
--- NOTE | 2019-04-24 01:59 | Emergency Department Note ---
Entered by Rhona Romero acting as a scribe for Riki Wise MD History of Present Illness General Chief complaint: Anxiety Stated complaint: ams/ [facility] Time Seen by Provider: 04/23/19 21:17 Source: patient History of Present Illness Provider complaint: Altered mental status/anxiety Location: head (altered mental status ) Associated symptoms: + shortness of breath (chronic ) and + other (Positive: chronic pain) The patient is an 89 year old male who presents to the ED for an evaluation of altered mental status. The patient notes he has shortness of breath and pain all over his body, which are not new. He reports he was sent over here by [facility]. HPI is limited secondary to the patient's uncooperativeness. Per report, [facility] staff concerned for worse confusion from baseline with fluctuating heart rate and O2 saturdation. Home Medications Home Medications Medication Instructions Recorded Confirmed Type melatonin 5 mg PO HS PRN 08/26/18 04/23/19 History Multivitamin 50 Plus 1 tab PO DAILY 04/02/19 04/23/19 History Ocuvite Eye Health 2 tab PO DAILY 04/02/19 04/23/19 History cholecalciferol (vitamin D3) 1,000 unit PO DAILY 04/02/19 04/23/19 History [Vitamin D3] cyanocobalamin (vitamin B-12) 1,000 mcg PO DAILY 04/02/19 04/23/19 History [Vitamin B-12] garlic 1,000 mg PO DAILY 04/02/19 04/23/19 History lutein 20 mg PO DAILY 04/02/19 04/23/19 History omega 5-[id number]-[id number]-fish oil [Fish Oil] 2 cap PO DAILY 04/02/19 04/23/19 History vitamin E 1,000 unit PO DAILY 04/02/19 04/23/19 History tamsulosin 0.4 mg PO HS #30 cap 04/07/19 04/23/19 Rx acetaminophen [Tylenol] 650 mg PO QID PRN 04/23/19 04/23/19 History ascorbic acid (vitamin C) [Vitamin 500 mg PO BID 04/23/19 04/23/19 History C] loperamide [Imodium A-D] 2 - 4 mg PO UD PRN 04/23/19 04/23/19 History Allergies Allergy/AdvReac Type Severity Reaction Status Date / Time nitrofurantoin Allergy Rash Unverified 04/23/19 22:08 [From Macrobid] Past Med/Surg History Medical History BPH (benign prostatic hyperplasia) (Chronic) Depression with anxiety (Chronic) CKD (chronic kidney disease), stage III (Chronic) Osteoarthritis (Chronic) History of bladder cancer (Chronic) History of squamous cell carcinoma (Chronic) Bladder cancer (Chronic 08/08/14) Dyslipidemia (Chronic) Gout (Chronic) Surgical History History of appendectomy (Chronic) History of colonoscopy (Chronic) Family History Father Cancer Other Family history non-contributory Social History Preferred Language: Slovak Communication Ability: confused 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 Beliefs That Will Affect Care: None marital status: Single Current Living Situation: [facility] Current Living Situation Comment: patient states he lives alone, has neighbor that checks on him frequently, he does not drive current occupational status: retired Other Information That Helps Us Care for You: No other: Ambulates with cane Feels Safe at Home: Yes Safety Concerns: Feels Safe At This Time Smoking Status: Former smoker Do You Dip or Chew Tobacco: No ; Second Hand Exposure: No ; Tobacco Cessation Education Requested by Patient: No Hx Alcohol Use: No Hx Substance Use: No Review of Systems Other (ROS is limited secondary to the patietn's uncooperativeness . ) Physical Exam Vital Signs Vital Signs - 24 hr 04/23/19 21:14 04/23/19 21:17 04/23/19 21:18 Temperature 36.3 C L Temperature Source Oral Sepsis Recent Fever Within 48 Hours No Sepsis Action Taken by Nursing No Action Required Pulse Rate 106 H 108 H 112 H Pulse Rate from SpO2 Sensor Respiratory Rate 35 H 28 H 30 H Respiratory Effort / Characteristics Non-Labored Respiratory Depth Normal Blood Pressure 126/77 126/77 Blood Pressure Mean 93 93 Pulse Oximetry 94 Oxygen Delivery Method Room Air 04/23/19 21:20 04/23/19 21:30 04/23/19 21:40 Temperature Temperature Source Sepsis Recent Fever Within 48 Hours Sepsis Action Taken by Nursing Pulse Rate 107 H 108 H 110 H Pulse Rate from SpO2 Sensor Respiratory Rate 17 21 31 H Respiratory Effort / Characteristics Respiratory Depth Blood Pressure 123/71 Blood Pressure Mean 88 Pulse Oximetry Oxygen Delivery Method 04/23/19 21:50 04/23/19 21:56 04/23/19 22:00 Temperature Temperature Source Sepsis Recent Fever Within 48 Hours Sepsis Action Taken by Nursing Pulse Rate 105 H Pulse Rate from SpO2 Sensor 108 H Respiratory Rate 34 H 42 H Respiratory Effort / Characteristics Respiratory Depth Blood Pressure 141/79 H Blood Pressure Mean 99 Pulse Oximetry 90 92 Oxygen Delivery Method Room Air 04/23/19 22:19 04/23/19 22:20 04/23/19 22:30 Temperature Temperature Source Sepsis Recent Fever Within 48 Hours Sepsis Action Taken by Nursing Pulse Rate 106 H Pulse Rate from SpO2 Sensor 106 H Respiratory Rate 30 H 28 H 19 Respiratory Effort / Characteristics Respiratory Depth Blood Pressure 118/64 Blood Pressure Mean 82 Pulse Oximetry 92 Oxygen Delivery Method 04/23/19 22:40 04/23/19 22:50 04/23/19 23:00 Temperature Temperature Source Sepsis Recent Fever Within 48 Hours Sepsis Action Taken by Nursing Pulse Rate 105 H 103 H 105 H Pulse Rate from SpO2 Sensor 105 H 104 H 104 H Respiratory Rate 24 28 H 21 Respiratory Effort / Characteristics Respiratory Depth Blood Pressure 112/57 L Blood Pressure Mean 75 Pulse Oximetry 91 91 93 Oxygen Delivery Method 04/23/19 23:10 04/23/19 23:20 04/23/19 23:30 Temperature Temperature Source Sepsis Recent Fever Within 48 Hours Sepsis Action Taken by Nursing Pulse Rate 105 H 103 H 103 H Pulse Rate from SpO2 Sensor 105 H 102 H 105 H Respiratory Rate 25 H 15 27 H Respiratory Effort / Characteristics Respiratory Depth Blood Pressure 105/55 L Blood Pressure Mean 71 Pulse Oximetry 93 92 92 Oxygen Delivery Method 04/23/19 23:40 04/23/19 23:50 04/24/19 00:00 Temperature Temperature Source Sepsis Recent Fever Within 48 Hours Sepsis Action Taken by Nursing Pulse Rate 101 H 96 H 97 H Pulse Rate from SpO2 Sensor 101 H 97 H 98 H Respiratory Rate 22 17 25 H Respiratory Effort / Characteristics Respiratory Depth Blood Pressure 120/62 Blood Pressure Mean 81 Pulse Oximetry 93 92 90 Oxygen Delivery Method 04/24/19 00:10 04/24/19 00:20 04/24/19 00:30 Temperature Temperature Source Sepsis Recent Fever Within 48 Hours Sepsis Action Taken by Nursing Pulse Rate 85 97 H 93 H Pulse Rate from SpO2 Sensor 90 92 H 96 H Respiratory Rate 17 19 22 Respiratory Effort / Characteristics Respiratory Depth Blood Pressure 132/65 Blood Pressure Mean 87 Pulse Oximetry 91 94 92 Oxygen Delivery Method 04/24/19 00:40 04/24/19 00:50 04/24/19 01:00 Temperature Temperature Source Sepsis Recent Fever Within 48 Hours Sepsis Action Taken by Nursing Pulse Rate 95 H 99 H 96 H Pulse Rate from SpO2 Sensor 97 H 93 H 96 H Respiratory Rate 18 22 20 Respiratory Effort / Characteristics Respiratory Depth Blood Pressure 107/59 L Blood Pressure Mean 75 Pulse Oximetry 92 90 93 Oxygen Delivery Method 04/24/19 01:10 04/24/19 01:20 04/24/19 01:30 Temperature Temperature Source Sepsis Recent Fever Within 48 Hours Sepsis Action Taken by Nursing Pulse Rate 96 H 96 H 93 H Pulse Rate from SpO2 Sensor 93 H 96 H 91 H Respiratory Rate 22 18 21 Respiratory Effort / Characteristics Respiratory Depth Blood Pressure Blood Pressure Mean Pulse Oximetry 93 92 93 Oxygen Delivery Method 04/24/19 01:40 04/24/19 01:50 04/24/19 02:00 Temperature Temperature Source Sepsis Recent Fever Within 48 Hours Sepsis Action Taken by Nursing Pulse Rate 96 H 93 H 100 H Pulse Rate from SpO2 Sensor 95 H 93 H 95 H Respiratory Rate 23 20 18 Respiratory Effort / Characteristics Respiratory Depth Blood Pressure Blood Pressure Mean Pulse Oximetry 93 92 92 Oxygen Delivery Method 04/24/19 02:03 Temperature Temperature Source Sepsis Recent Fever Within 48 Hours Sepsis Action Taken by Nursing Pulse Rate 94 H Pulse Rate from SpO2 Sensor 94 H Respiratory Rate 21 Respiratory Effort / Characteristics Respiratory Depth Blood Pressure 111/64 Blood Pressure Mean 79 Pulse Oximetry 91 Oxygen Delivery Method GENERAL: Awake, alert, chronically ill-appearing, in no distress HENT: Normocephaic, atraumatic. Oropharynx with dry mucous membranes and otherwise unremarkable. EYES: Normal conjunctiva. Sclera non-icteric. EOMI. No nystamgus. PEARRL. NECK: Supple. No nuchal rigidity. FROM. No JVD. RESPIRATORY: CTAB CARDIAC: Tachycardic rate, normal rhythm. Extremities warm and well perfused. Pulses equal. ABDOMEN: Soft, non-distended. No tenderness to palpation. No rebound or guarding. No masses. RECTAL: Deferred. MUSCULOSKELETAL: Chest examination reveals no tenderness. The back is symmetrical on inspection without obvious abnormality. There is no CVA tenderness to palpation. No joint edema. LOWER EXTREMITIES: Calves are equal size bilaterally and non-tender. No edema. No discoloration. NEURO: Normal sensorium. No sensory or motor deficits noted. SKIN: No rash or jaundice noted. Course 2118: I reviewed the patient's old records. He was admitted in March for altered mental status due to metabolic encephalopathy. 2131: The patient was evaluated in room C6. A complete history and physical exam was performed. 0025: I discussed the patient's case with Dr. Lopez, [facility] Hospitalist. He will evaluate the patient for further management. 0035: Upon reevaluation, the patient is resting comfortably. I discussed laboratory and radiographic results with him. The patient verbalized agreement of the treatment plan. The patient will be evaluated for further management and care. Administered Medications Sodium Chloride (1/2 Nss) 1,000 mls @ 250 mls/hr IV .Q4H STA Stop: 04/24/19 06:03 Last Admin: 04/24/19 03:12 Dose: 250 mls/hr Documented by: [id number] Discontinued Medications Sodium Chloride (Nss) 500 mls @ 999 mls/hr IV .Q31M NAYA Stop: 04/23/19 22:15 Last Infusion: 04/23/19 22:31 Dose: 0 mls/hr Documented by: [id number] Admin: 04/23/19 21:57 Dose: 999 mls/hr Documented by: [id number] Sodium Chloride (Nss) 500 mls @ 999 mls/hr IV .Q31M ONE Stop: 04/24/19 00:19 Last Infusion: 04/24/19 00:40 Dose: 0 mls/hr Documented by: [id number] Admin: 04/24/19 00:06 Dose: 999 mls/hr Documented by: [id number] Medical Decision Making Differential Diagnosis Differential Diagnosis: Differential includes acute coronary syndrome, myocardial infarction, CVA, TIA, anemia, infection, pneumonia, UTI, pyelonephritis, poor nutrition, dehydration, electrolyte disturbance,hypoglycemia. Medical Records Attestation: I reviewed the patient's medical records. Home Medications Current Medication List: was personally reviewed by me Laboratory Data Attestation: I reviewed the patient's lab results. Result diagrams: 04/24/19 03:05 04/24/19 03:05 Lab Results 04/23/19 04/23/19 04/23/19 Range/Units 21:52 21:52 21:52 WBC 8.78 (4.8-10.8) K/uL RBC 3.78 L (4.7-6.1) M/uL Hgb 12.3 L (14.0-18.0) g/dL Hct 37.7 L (42-52) % MCV 99.7 (80-100) fL MCH 32.5 (25-34) pg MCHC 32.6 (32-36) g/dL RDW Std Deviation 51.3 H (36.4-46.3) fL RDW Coeff of Erick 14.3 (11.5-14.5) % Plt Count 227 (130-400) K/uL MPV 10.5 H (7.4-10.4) fL Immature Gran % (Auto) 0.2 % Neut % (Auto) 80.3 % Lymph % (Auto) 10.8 % [place] % (Auto) 6.6 % Eos % (Auto) 1.8 % Baso % (Auto) 0.3 % Immature Gran # (Auto) 0.02 (0.00-0.02) K/uL Neut # (Auto) 7.04 H (1.4-6.5) K/uL Lymph # (Auto) 0.95 L (1.2-3.4) K/uL [place] # (Auto) 0.58 (0.11-0.59) K/uL Eos # (Auto) 0.16 (0-0.5) K/uL Baso # (Auto) 0.03 (0-0.2) K/uL PT 10.8 (9.0-12.0) Seconds INR 1.1 (0.9-1.1) Sodium 149 H (136-145) mmol/L Potassium 4.0 (3.5-5.1) mmol/L Chloride 117 H (98-107) mmol/L Carbon Dioxide 26 (21-32) mmol/L Anion Gap 6.0 (3-11) BUN 35 H (7-18) mg/dl Creatinine 1.73 H (0.6-1.4) mg/dl Est Cr Clr Drug Dosing 26.0 ml/min Est GFR ( Amer) 39.7 Est GFR (Non-Af Amer) 34.2 BUN/Creatinine Ratio 20.1 H (10-20) Glucose 115 H (70-99) mg/dl Calcium 9.3 (8.5-10.1) mg/dl Phosphorus 2.9 (2.5-4.9) mg/dl Magnesium 2.7 H (1.8-2.4) mg/dl Total Bilirubin 0.6 (0.2-1) mg/dl Direct Bilirubin (0-0.2) mg/dl AST 38 H (15-37) U/L ALT 34 (12-78) U/L Alkaline Phosphatase 101 (45-117) U/L Troponin I < 0.015 (0-0.045) ng/ml Total Protein 6.9 (6.4-8.2) gm/dl Albumin 2.4 L (3.4-5.0) gm/dl Globulin 4.5 H (2.5-4.0) gm/dl Albumin/Globulin Ratio 0.5 L (0.9-2) Lipase 153 (73-393) U/L Specimen Hemolysis Urine Color Urine Appearance (Clear) Urine pH (4.5-7.5) Ur Specific Blanket (1.000-1.030) Urine Protein (Negative) Urine Glucose (UA) (Negative) Urine Ketones (Negative) Urine Blood (Negative) Urine Nitrite (Negative) Urine Bilirubin (Negative) Urine Urobilinogen (Negative) Ur Leukocyte Esterase (Negative) Urine WBC (Auto) (0-5) /hpf Urine RBC (Auto) (0-4) /hpf U Hyaline Cast (Auto) (0-5) /lpf U Epithel Cells (Auto) (0-5) /lpf Urine Bacteria (Auto) (Negative) 04/23/19 Range/Units 22:27 WBC (4.8-10.8) K/uL RBC (4.7-6.1) M/uL Hgb (14.0-18.0) g/dL Hct (42-52) % MCV (80-100) fL MCH (25-34) pg MCHC (32-36) g/dL RDW Std Deviation (36.4-46.3) fL RDW Coeff of Erick (11.5-14.5) % Plt Count (130-400) K/uL MPV (7.4-10.4) fL Immature Gran % (Auto) % Neut % (Auto) % Lymph % (Auto) % [place] % (Auto) % Eos % (Auto) % Baso % (Auto) % Immature Gran # (Auto) (0.00-0.02) K/uL Neut # (Auto) (1.4-6.5) K/uL Lymph # (Auto) (1.2-3.4) K/uL [place] # (Auto) (0.11-0.59) K/uL Eos # (Auto) (0-0.5) K/uL Baso # (Auto) (0-0.2) K/uL PT (9.0-12.0) Seconds INR (0.9-1.1) Sodium (136-145) mmol/L Potassium (3.5-5.1) mmol/L Chloride (98-107) mmol/L Carbon Dioxide (21-32) mmol/L Anion Gap (3-11) BUN (7-18) mg/dl Creatinine (0.6-1.4) mg/dl Est Cr Clr Drug Dosing ml/min Est GFR ( Amer) Est GFR (Non-Af Amer) BUN/Creatinine Ratio (10-20) Glucose (70-99) mg/dl Calcium (8.5-10.1) mg/dl Phosphorus (2.5-4.9) mg/dl Magnesium (1.8-2.4) mg/dl Total Bilirubin (0.2-1) mg/dl Direct Bilirubin (0-0.2) mg/dl AST (15-37) U/L ALT (12-78) U/L Alkaline Phosphatase (45-117) U/L Troponin I (0-0.045) ng/ml Total Protein (6.4-8.2) gm/dl Albumin (3.4-5.0) gm/dl Globulin (2.5-4.0) gm/dl Albumin/Globulin Ratio (0.9-2) Lipase (73-393) U/L Specimen Hemolysis Urine Color Dark Yellow Urine Appearance Cloudy A (Clear) Urine pH 5.0 (4.5-7.5) Ur Specific Blanket 1.020 (1.000-1.030) Urine Protein 1+ H (Negative) Urine Glucose (UA) Negative (Negative) Urine Ketones Negative (Negative) Urine Blood Negative (Negative) Urine Nitrite Negative (Negative) Urine Bilirubin Negative (Negative) Urine Urobilinogen Negative (Negative) Ur Leukocyte Esterase Negative (Negative) Urine WBC (Auto) 1-5 (0-5) /hpf Urine RBC (Auto) 0-4 (0-4) /hpf U Hyaline Cast (Auto) 5-10 H (0-5) /lpf U Epithel Cells (Auto) 10-20 H (0-5) /lpf Urine Bacteria (Auto) Negative (Negative) Imaging Data Radiologist's Impression: Radiology results as stated below per my review and the radiologist's interpretation: CT head/brain wo con CLINICAL HISTORY: 89 years-old Male with ams. Acutely altered mental status TECHNIQUE: Multiple axial CT images of the head were obtained without contrast. A dose lowering technique was utilized adhering to the principles of ALARA. CT DOSE: 537.48 mGy.cm COMPARISON: Head CT 04/02/2019 FINDINGS: No acute intracranial hemorrhage, midline shift, intracranial mass, hydrocephalus, territorial ischemia or abnormal extra-axial collection. Age-re lated involutional changes with ex vacuo ventriculomegaly. Patchy white matter hypodensities suggest chronic microvascular ischemic disease. The calvarium is intact. The paranasal sinuses, mastoid air cells, and middle ear cavities are clear. IMPRESSION: No acute intracranial abnormality. The above report was generated using voice recognition software. It may contain grammatical, syntax or spelling errors. Electronically signed by: Sonny Condon M.D. 04/23/2019 10:24 PM XR chest 1V portable HISTORY: 89 years-old Male Chest Pain acute atypical chest pain COMPARISON: Chest radiograph 04/02/2019 TECHNIQUE: Portable AP view of the chest FINDINGS: Cardiac silhouette is unchanged. Prominence of the right paratracheal tissues likely accentuated by positioning. No pneumothorax, pleural effusion or overt pulmonary edema. Mild chronic interstitial or spelling of the lung bases. Degenerative changes of the shoulders and spine. IMPRESSION: No acute process. The above report was generated using voice recognition software. It may contain grammatical, syntax or spelling errors. Electronically signed by: Sonny Condon M.D. 04/23/2019 10:09 PM ECG Data Attestation: I personally reviewed and interpreted this ECG as follows: Indication: weakness Rate (beats per minute): 104 Rhythm: sinus tachycardia Findings: + other (Normal axis ); no acute ischemic change Blood Pressure Blood Pressure Findings: Normal blood pressure Blood Pressure Disposition: did not require urgent referral MDM Narrative The patient is a pleasant 89-year-old gentleman with a past medical history of bladder cancer, BPH, CKD, hypertension, hyperlipidemia, anxiety/depression, osteoarthritis who presents emergency department from [facility] for worsening confusion from his baseline confusion and concern for fluctuating heart rates in oxygen saturations per hpi. On arrival the patient is chronically ill-appearing but no acute distress, afebrile with stable vital signs. On exam the patient appears clinically dry. He demonstrates no focal neuro deficits. EKG without overt acute ischemia. Chest x-ray negative for acute process. WBC within normal limits. H/H 12.3/37.3 approximate 2 recent values. Platelets within normal limits. Chemistry without acidosis. However does demonstrate free water deficit of approximately 2 L with sodium of 149. Creatinine is 1.73 with a BUN of 35 again consistent with the patient's clinically dry appearance. Troponin negative. UA without overt infection. Given the patient's dehydration and associated mental status changes reasonable to admit the patient for further management. Case was discussed with Dr. Lopez, [facility] hospitalist, who will evaluate the patient for admission. Impression & Plan Hypernatremia, Dehydration, Metabolic encephalopathy Discharge Plan Visit Data *Final* Discharge Date/Time: 04/24/19 02:27 Chief Complaint: Anxiety Stated Complaint: [facility]/ [facility] ED Provider: Riki Wise Discharge Problem: Hypernatremia, Dehydration, Metabolic encephalopathy Patient Disposition: Admitted As Inpatient Discharge Instructions Interventions: ED Discharge Assessment Last Done: 04/24/19 02:27 The scribe's documentation has been prepared under my direction and personally reviewed by me in its entirety. I confirm that the note above accurately reflects all work, treatment, procedures, and medical decision making performed by me.
[2019-04-24] MEDS ORDERED: SODIUM CHLORIDE 0.45 % 1,000 ML IV STA (02:04)
--- NOTE | 2019-04-24 02:14 | History & Physical Report ---
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 Fabienne Walker, as per previous documentation. (Contact #[phone] 12/24 [phone].) History of Present Illness Chief Complaint: "I'm an S OB" as per patient Rapid and slow heartbeat, patient clammy and pale as per [facility] staff Primary Care Provider: Dr. Mcclain History obtained from patient and records. Limited history from patient secondary to confused state. Medical history significant for hyperlipidemia, anxiety/mood disorder, bladder cancer as per records, past tobacco abuse. Recent confinement 2 weeks ago for metabolic encephalopathy secondary to ARF, hypernatremia, UTI. Patient discharged to [facility] for rehab. Patient noted to be pale and clammy last night at [facility] rehab facility. Blood pressure noted to be 120/61. Cardiac rate slow to rapid 40-115 as per rehab documentation. Patient very restless during vital signs monitoring. Patient not any more confused than usual as per [facility] staff. Patient to the emergency room. Patient denies chest pain, S OB, abdominal pain, dysuria. "Hungry" as per patient. Medical History as above Surgical History : Appendectomy, urologic procedures Family History : Could not be obtained Personal/Social history : Non-smoker, no EtOH intake, recent correction resident Allergies Allergy/AdvReac Type Severity Reaction Status Date / Time nitrofurantoin Allergy Rash Unverified 04/23/19 22:08 [From Macrobid] Home Medications Home Medications Medication Instructions Recorded Confirmed Type melatonin 5 mg PO HS PRN 08/26/18 04/23/19 History Multivitamin 50 Plus 1 tab PO DAILY 04/02/19 04/23/19 History Ocuvite Eye Health 2 tab PO DAILY 04/02/19 04/23/19 History cholecalciferol (vitamin D3) 1,000 unit PO DAILY 04/02/19 04/23/19 History [Vitamin D3] cyanocobalamin (vitamin B-12) 1,000 mcg PO DAILY 04/02/19 04/23/19 History [Vitamin B-12] garlic 1,000 mg PO DAILY 04/02/19 04/23/19 History lutein 20 mg PO DAILY 04/02/19 04/23/19 History omega 1-lqk-hse-fish oil [Fish Oil] 2 cap PO DAILY 04/02/19 04/23/19 History vitamin E 1,000 unit PO DAILY 04/02/19 04/23/19 History tamsulosin 0.4 mg PO HS #30 cap 04/07/19 04/23/19 Rx acetaminophen [Tylenol] 650 mg PO QID PRN 04/23/19 04/23/19 History ascorbic acid (vitamin C) [Vitamin 500 mg PO BID 04/23/19 04/23/19 History C] loperamide [Imodium A-D] 2 - 4 mg PO UD PRN 04/23/19 04/23/19 History Past Med/Surg History Medical History BPH (benign prostatic hyperplasia) (Chronic) Depression with anxiety (Chronic) CKD (chronic kidney disease), stage III (Chronic) Osteoarthritis (Chronic) History of bladder cancer (Chronic) History of squamous cell carcinoma (Chronic) Bladder cancer (Chronic 08/08/14) Dyslipidemia (Chronic) Gout (Chronic) Surgical History History of appendectomy (Chronic) History of colonoscopy (Chronic) Family History Father Cancer Other Family history non-contributory Social History Preferred Language: Macedonian Communication Ability: confused Survey Supervisor Required: No Beliefs That Will Affect Care: None marital status: Single Current Living Situation: Jail Current Living Situation Comment: patient states he lives alone, has neighbor that checks on him frequently, he does not drive current occupational status: retired Other Information That Helps Us Care for You: No other: Ambulates with cane Feels Safe at Home: Yes Safety Concerns: Feels Safe At This Time Smoking Status: Former smoker Do You Dip or Chew Tobacco: No ; Second Hand Exposure: No ; Tobacco Cessation Education Requested by Patient: No Hx Alcohol Use: No Hx Substance Use: No Review of Systems Review of Systems: Could not be reliably obtained Physical Exam Physical Exam: GENERAL: Slightly agitated, disoriented, no respiratory distress SKIN: Pallor , warm HEENT: Bespectacled, pale palpebral conjunctivae, no ptosis, dry buccal mucosa NECK : Supple, no tenderness CHEST : Decreased effort, no tenderness HEART : RRR, no obvious murmurs ABDOMEN: Some distention, nontender RECTAL : Refused EXTREMITIES : No LE swelling/tenderness, no other conspicuous deformities noted NEUROLOGIC : Disoriented, no facial asymmetry, gait and stance not assessed Results & Data Vital Signs (Past 12 Hours) Vital Signs Temp Pulse Resp BP Pulse Ox 04/24/19 01:00 96 H 20 107/59 L 93 04/24/19 00:50 99 H 22 90 04/24/19 00:40 95 H 18 92 04/24/19 00:30 93 H 22 132/65 92 04/24/19 00:20 97 H 19 94 04/24/19 00:10 85 17 91 04/24/19 00:00 97 H 25 H 120/62 90 04/23/19 23:50 96 H 17 92 04/23/19 23:40 101 H 22 93 04/23/19 23:30 103 H 27 H 105/55 L 92 04/23/19 23:20 103 H 15 92 04/23/19 23:10 105 H 25 H 93 04/23/19 23:00 105 H 21 112/57 L 93 04/23/19 22:50 103 H 28 H 91 04/23/19 22:40 105 H 24 91 04/23/19 22:30 106 H 19 118/64 92 04/23/19 22:20 28 H 04/23/19 22:19 30 H 04/23/19 22:00 42 H 141/79 H 04/23/19 21:56 92 04/23/19 21:50 105 H 34 H 90 04/23/19 21:40 110 H 31 H 04/23/19 21:30 108 H 21 123/71 04/23/19 21:20 107 H 17 04/23/19 21:18 36.3 C L 112 H 30 H 126/77 94 04/23/19 21:17 108 H 28 H 04/23/19 21:14 106 H 35 H 126/77 Laboratory Results Laboratory Results WBC 8.78 K/uL (4.8-10.8) 04/23/19 21:52 RBC 3.78 M/uL (4.7-6.1) L 04/23/19 21:52 Hgb 12.3 g/dL (14.0-18.0) L 04/23/19 21:52 Hct 37.7 % (42-52) L 04/23/19 21:52 MCV 99.7 fL (80-100) 04/23/19 21:52 MCH 32.5 pg (25-34) 04/23/19 21:52 MCHC 32.6 g/dL (32-36) 04/23/19 21:52 RDW Std Deviation 51.3 fL (36.4-46.3) H 04/23/19 21:52 RDW Coeff of Reick 14.3 % (11.5-14.5) 04/23/19 21:52 Plt Count 227 K/uL (130-400) 04/23/19 21:52 MPV 10.5 fL (7.4-10.4) H 04/23/19 21:52 Immature Gran % (Auto) 0.2 % 04/23/19 21:52 Neut % (Auto) 80.3 % 04/23/19 21:52 Lymph % (Auto) 10.8 % 04/23/19 21:52 [place] % (Auto) 6.6 % 04/23/19 21:52 Eos % (Auto) 1.8 % 04/23/19 21:52 Baso % (Auto) 0.3 % 04/23/19 21:52 Immature Gran # (Auto) 0.02 K/uL (0.00-0.02) 04/23/19 21:52 Neut # (Auto) 7.04 K/uL (1.4-6.5) H 04/23/19 21:52 Lymph # (Auto) 0.95 K/uL (1.2-3.4) L 04/23/19 21:52 [place] # (Auto) 0.58 K/uL (0.11-0.59) 04/23/19 21:52 Eos # (Auto) 0.16 K/uL (0-0.5) 04/23/19 21:52 Baso # (Auto) 0.03 K/uL (0-0.2) 04/23/19 21:52 Sodium 149 mmol/L (136-145) H 04/23/19 21:52 Potassium 4.0 mmol/L (3.5-5.1) 04/23/19 21:52 Chloride 117 mmol/L (98-107) H 04/23/19 21:52 Carbon Dioxide 26 mmol/L (21-32) 04/23/19 21:52 Anion Gap 6.0 (3-11) 04/23/19 21:52 BUN 35 mg/dl (7-18) H 04/23/19 21:52 Creatinine 1.73 mg/dl (0.6-1.4) H 04/23/19 21:52 Est Cr Clr Drug Dosing 26.0 ml/min 04/23/19 21:52 Est GFR ( Amer) 39.7 04/23/19 21:52 Est GFR (Non-Af Amer) 34.2 04/23/19 21:52 BUN/Creatinine Ratio 20.1 (10-20) H 04/23/19 21:52 Glucose 115 mg/dl (70-99) H 04/23/19 21:52 Calcium 9.3 mg/dl (8.5-10.1) 04/23/19 21:52 Phosphorus 2.9 mg/dl (2.5-4.9) 04/23/19 21:52 Magnesium 2.7 mg/dl (1.8-2.4) H 04/23/19 21:52 Total Bilirubin 0.6 mg/dl (0.2-1) 04/23/19 21:52 Direct Bilirubin mg/dl (0-0.2) 04/23/19 21:52 AST 38 U/L (15-37) H 04/23/19 21:52 ALT 34 U/L (12-78) 04/23/19 21:52 Alkaline Phosphatase 101 U/L (45-117) 04/23/19 21:52 Troponin I < 0.015 ng/ml (0-0.045) 04/23/19 21:52 Total Protein 6.9 gm/dl (6.4-8.2) 04/23/19 21:52 Albumin 2.4 gm/dl (3.4-5.0) L 04/23/19 21:52 Globulin 4.5 gm/dl (2.5-4.0) H 04/23/19 21:52 Albumin/Globulin Ratio 0.5 (0.9-2) L 04/23/19 21:52 Lipase 153 U/L (73-393) 04/23/19 21:52 Specimen Hemolysis 04/23/19 21:52 Urine Color Dark Yellow 04/23/19 22:27 Urine Appearance Cloudy (Clear) A 04/23/19 22:27 Urine pH 5.0 (4.5-7.5) 04/23/19 22:27 Ur Specific [place] 1.020 (1.000-1.030) 04/23/19 22:27 Urine Protein 1+ (Negative) H 04/23/19 22:27 Urine Glucose (UA) Negative (Negative) 04/23/19 22:27 Urine Ketones Negative (Negative) 04/23/19 22:27 Urine Blood Negative (Negative) 04/23/19 22:27 Urine Nitrite Negative (Negative) 04/23/19 22:27 Urine Bilirubin Negative (Negative) 04/23/19 22:27 Urine Urobilinogen Negative (Negative) 04/23/19 22:27 Ur Leukocyte Esterase Negative (Negative) 04/23/19 22:27 Urine WBC (Auto) 1-5 /hpf (0-5) 04/23/19 22:27 Urine RBC (Auto) 0-4 /hpf (0-4) 04/23/19 22:27 U Hyaline Cast (Auto) 5-10 /lpf (0-5) H 04/23/19 22:27 U Epithel Cells (Auto) 10-20 /lpf (0-5) H 04/23/19 22:27 Urine Bacteria (Auto) Negative (Negative) 04/23/19 22:[address] head initial read: No acute pathology Chest x-ray as per my interpretation no infiltrate EKG as per my interpretation : Rate 105, sinus tachycardia, no ischemia
[2019-04-24] MEDS ORDERED: ACETAMINOPHEN 325 MG TAB PO PRN ×2 (02:42→08:38)
[2019-04-24] MEDS ORDERED: NITROGLYCERIN SL 0.4 MG/TAB TAB SL PRN (02:42)
[2019-04-24] MEDS ORDERED: TRAMADOL HCL 50 MG TABLET PO PRN (02:42)
[2019-04-24 03:31] LABS: Basophils # (auto) 0.02 K/uL (0-0.2); Basophils % (auto) 0.3 %; Eosinophils # (auto) 0.25 K/uL (0-0.5); Eosinophils % (auto) 3.3 %; Hemoglobin 11.8 g/dL (14.0-18.0); Immature Granulocytes # (auto) 0.03 K/uL (0.00-0.02); Immature Granulocytes % (auto) 0.4 %; Lymphocytes # (auto) 1.17 K/uL (1.2-3.4); Lymphocytes % (auto) 15.3 %; Mean Corpuscular Hgb Conc 31.9 g/dL (32-36); Mean Corpuscular Volume 101.4 fL (80-100); Mean Platelet Volume 10.1 fL (7.4-10.4); Monocytes # (auto) 0.47 K/uL (0.11-0.59); Monocytes % (auto) 6.2 %; Neutrophils # (auto) 5.69 K/uL (1.4-6.5); Neutrophils % (auto) 74.5 %; Platelet Count 196 K/uL (130-400); RDW Coefficient of Variation 14.2 % (11.5-14.5); RDW Standard Deviation 52.8 fL (36.4-46.3); Red Blood Count 3.65 M/uL (4.7-6.1); Reticulocyte % 1.7 % (0.5-2.0); Reticulocytes # 0.06 10^6/uL (0.02-0.10); White Blood Count 7.63 K/uL (4.8-10.8)
[2019-04-24 03:45] LABS: INR 1.1 (0.9-1.1); Prothrombin Time 10.8 Seconds (9.0-12.0)
[2019-04-24 03:51] LABS: BUN Creatinine Ratio 20.4 (10-20); Calcium 8.9 mg/dl (8.5-10.1); Creatinine Clr Calc Pharmacy 27.4 ml/min; Est GFR (Non-African American) 37.9; Potassium 3.7 mmol/L (3.5-5.1)
[2019-04-24 03:55] LABS: Ferritin 469.8 ng/ml (8-388)
[2019-04-24 04:29] LABS: Folate (Folic Acid) 19.13 ng/ml (>5.38)
[2019-04-24] MEDS ORDERED: HEPARIN SOD 5,000 UNIT/0.5 ML VIAL SQ SCH (06:00)
--- NOTE | 2019-04-24 07:10 | Hospitalist Progress Note ---
Date of Service April 24, 2019 Subjective Additional history obtained from patient niece, Ms. Fabienne Walker, over the phone. Over the last year, patient mentation deteriorating. Patient's family and neighbors suspecting possible dementia. Patient appetite has not been well since arriving at [facility] following recent confinement. Patient not eating. Family told that discharge home to independent living was highly unlikely. At one point, patient told his family that he just wanted to be comfortable and to in peace. I told patient's niece that circumstances of current admission are reminiscent of recent confinement - poor p.o. intake, acute renal failure, hypernatremia in a possibly demented individual. Current medical management consisting of IV hydration would not ensure that patient won't be returning to the hospital once discharged back to [facility] if her uncle refuses to eat. Patient's niece requesting for comfort measures to be instituted for patient. Results & Data Vital Signs (Past 12 Hours) Vital Signs Temp Pulse Pulse Resp BP BP Pulse Ox 04/24/19 03:45 95 H 04/24/19 03:06 36.5 C 100 H 18 96/52 L 90 04/24/19 02:20 95 H 21 93 04/24/19 02:10 90 22 93 04/24/19 02:03 94 H 21 111/64 91 04/24/19 02:00 100 H 18 92 04/24/19 01:50 93 H 20 92 04/24/19 01:40 96 H 23 93 04/24/19 01:30 93 H 21 93 04/24/19 01:20 96 H 18 92 04/24/19 01:10 96 H 22 93 04/24/19 01:00 96 H 20 107/59 L 93 04/24/19 00:50 99 H 22 90 04/24/19 00:40 95 H 18 92 04/24/19 00:30 93 H 22 132/65 92 04/24/19 00:20 97 H 19 94 04/24/19 00:10 85 17 91 04/24/19 00:00 97 H 25 H 120/62 90 04/23/19 23:50 96 H 17 92 04/23/19 23:40 101 H 22 93 04/23/19 23:30 103 H 27 H 105/55 L 92 04/23/19 23:20 103 H 15 92 04/23/19 23:10 105 H 25 H 93 04/23/19 23:00 105 H 21 112/57 L 93 04/23/19 22:50 103 H 28 H 91 04/23/19 22:40 105 H 24 91 04/23/19 22:30 106 H 19 118/64 92 04/23/19 22:20 28 H 04/23/19 22:19 30 H 04/23/19 22:00 42 H 141/79 H 04/23/19 21:56 92 04/23/19 21:50 105 H 34 H 90 04/23/19 21:40 110 H 31 H 04/23/19 21:30 108 H 21 123/71 04/23/19 21:20 107 H 17 04/23/19 21:18 36.3 C L 112 H 30 H 126/77 94 04/23/19 21:17 108 H 28 H 04/23/19 21:14 106 H 35 H 126/77
[2019-04-24] MEDS ORDERED: LORazepam 1 MG/2 ML VIAL IV PRN (08:38)
[2019-04-24] MEDS ORDERED: MoRPHine SULFATE 4 MG/ML 1 ML CARP\\VIAL IV PRN (08:38)
[2019-04-24] MEDS ORDERED: CYANOCOBALAMIN 500 MCG TABLET (VITAMIN B-12) PO SCH (09:00)
[2019-04-24] MEDS ORDERED: VIT C E ZINC CIT LUTEIN ZEAXAN PO SCH (09:00)
[2019-04-24] MEDS ORDERED: CEROVITE ADV FORMULA TAB PO SCH (09:00)
[2019-04-24] MEDS ORDERED: NON-FORMULARY MEDICATION (Melatonin 5 MG) PO PRN (12:24)
[2019-04-24] MEDS ORDERED: MoRPHine SULFATE 2 MG/ML CARP IV PRN (12:26)
[2019-04-24] MEDS: DEXTROSE 5% 1,000 ML IV SCH (13:11)
--- NOTE | 2019-04-24 15:39 | Hospitalist Progress Note ---
Date of Service April 24, 2019 Assessment & Plan (1) ARF (acute renal failure): Hypernatremia secondary to dehydration/poor Oral Intake POA- Ok with IV fluids Started on D5W Monitor sodium levels Palliative Care consulted to address goals of Care Goal of Care is comfort as per patient's POA GERRI On CKD III Likely Prerenal due to Poor oral intake Baseline Cr: 1.2 Cr:1.73>>1.59 Continue IV fluids Monitor renal function Avoid Nephrotoxic meds as able Could have underlying dementia Undiagnosed officially No agitation today Anxiety/mood disorder Not on any meds H/O Bladder cancer S/P treatment BPH: On Tamsulosin Past tobacco abuse DVT Px: Heparin SQ COde Status DNR/DNI as per niece/POA, Fabienne Walker Subjective Patient is seen and examined at bedside Drowsy/Lethargic this morning Follows simple commands Unable to provide any history Discussed with Patient's POA- in detail Goal is comfort POA is OK with IV fluids Involved palliative Care as per family's request Review of Systems Review of Systems: Unobtainable due to cognitive status Physical Exam Physical Exam: Physical Exam: Vitals signs as noted above General Appearance:Moderately built, Drowsy, Lethargic, no apparent distress Head: normocephalic, Atraumatic Eyes: normal inspection Neck: supple, Trachea midline Respiratory/Chest: Normal breath sounds, CTA Cardiovascular: S1, S2, No murmur Abdomen/GI:Soft, Non tender, Bowel sounds present Extremities/Musculoskelatal:normal inspection, no edema Neurologic/Psych:grossly moves all extremities. Complete neuro exam could not be performed Skin: normal color, warm Results & Data Vital Signs (Past 12 Hours) Vital Signs Temp Pulse Pulse Resp BP Pulse Ox 04/24/19 12:47 36.7 C 88 20 100/59 L 94 04/24/19 03:45 95 H Laboratory Results Short CBC 04/23/19 04/24/19 Range/Units 21:52 03:05 WBC 8.78 7.63 (4.8-10.8) K/uL Hgb 12.3 L 11.8 L (14.0-18.0) g/dL Hct 37.7 L 37.0 L (42-52) % Plt Count 227 196 (130-400) K/uL BMP 04/23/19 04/24/19 21:52 03:05 Sodium 149 H 150 H Potassium 4.0 3.7 Chloride 117 H 120 H Carbon Dioxide 26 26 BUN 35 H 32 H Creatinine 1.73 H 1.59 H Glucose 115 H 114 H Calcium 9.3 8.9 Cardiac Enzymes 04/23/19 Range/Units 21:52 Troponin I < 0.015 (0-0.045) ng/ml Liver Function 04/23/19 Range/Units 21:52 Total Bilirubin 0.6 (0.2-1) mg/dl Direct Bilirubin (0-0.2) mg/dl AST 38 H (15-37) U/L ALT 34 (12-78) U/L Alkaline Phosphatase 101 (45-117) U/L Albumin 2.4 L (3.4-5.0) gm/dl Urine 04/23/19 Range/Units 22:27 Urine Color Dark Yellow Urine Appearance Cloudy A (Clear) Urine pH 5.0 (4.5-7.5) Ur Specific [place] 1.020 (1.000-1.030) Urine Protein 1+ H (Negative) Urine Glucose (UA) Negative (Negative)
[2019-04-24] MEDS: HEPARIN SOD 5,000 UNIT/0.5 ML VIAL SQ SCH (19:57)
[2019-04-24] MEDS: TAMSULOSIN HCL 0.4 MG CAP PO SCH (19:58)
[2019-04-24 20:36] LABS: BUN Creatinine Ratio 20.2 (10-20); Calcium 8.3 mg/dl (8.5-10.1); Creatinine Clr Calc Pharmacy 33.8 ml/min; Est GFR (African American) 56.6; Est GFR (Non-African American) 48.8; Potassium 3.5 mmol/L (3.5-5.1)
[2019-04-24] MEDS ORDERED: TAMSULOSIN HCL 0.4 MG CAP PO SCH (21:00)
[2019-04-25] MEDS: DEXTROSE 5% 1,000 ML IV SCH ×2 (01:45→14:26)
[2019-04-25] MEDS ORDERED: ACETAMINOPHEN 65 ML IV PRN (05:45)
[2019-04-25 06:15] LABS: Hematocrit (blood only) 37.1 % (42-52); Hemoglobin 12.1 g/dL (14.0-18.0); Mean Corpuscular Hgb Conc 32.6 g/dL (32-36); Mean Corpuscular Volume 99.5 fL (80-100); Mean Platelet Volume 10.9 fL (7.4-10.4); Platelet Count 186 K/uL (130-400); RDW Standard Deviation 50.6 fL (36.4-46.3); Red Blood Count 3.73 M/uL (4.7-6.1); White Blood Count 7.07 K/uL (4.8-10.8)
[2019-04-25 06:17] LABS: Estimated Average Glucose 117 mg/dl; Hemoglobin A1C 5.7 % (4.5-5.6)
[2019-04-25 06:50] LABS: BUN Creatinine Ratio 16.2 (10-20); Calcium 8.6 mg/dl (8.5-10.1); Est GFR (African American) 57.1; Est GFR (Non-African American) 49.3; Potassium 3.7 mmol/L (3.5-5.1)
[2019-04-25] MEDS: HEPARIN SOD 5,000 UNIT/0.5 ML VIAL SQ SCH ×2 (10:00→20:26)
--- NOTE | 2019-04-25 10:44 | Palliative Care Consultation ---
Date of Consultation April 25, 2019 Assessment & Plan (1) Goals of care, counseling/discussion: This is an 89 year old male who presented to the [facility] from [facility] with tachy-ace heart rate, and was pale cool and clammy with altered mental status. Patient was recently admitted to [facility] two weeks prior for skilled services post admission of metabolic encephalopathy secondary to ARF, hypernatremia, and a UTI. Additional PMH includes HLD, anxiety/mood disorder, dementia, suicidal ideation, and bladder cancer. The patient has been increasingly restless and going through periods of refusing to eat. His Sodium level has shown improvement and has now returned to a normal range of 145. On admission, patient denied chest pain, SOB, abdominal pain or dysuria. Patient has made numerous comments about 'wanting to ' both to nursing staff and family. There is a component of his condition that may likely be metabolic encephalopathy, which may show improvement now that his sodium level has returned to normal. The patient does have a niece, Doris, who is also his POA who indicates that she would like to fully focus on comfort measures without initiating additional diagnostic interventions. Palliative Care was consulted to discuss goals of care. -I met with patient in room 461-2. 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 He pointed to his left eye. He was able to tell me that he did used to live alone and understands he couldn't, but I do not feel that he has a good baseline understanding of the medical situation and is unable to participate in any decision making conversations. -The patient does have a niece who has been appointed as his POA, Tomás Walker ([phone]) whom I did speak to over the phone. She did make it clear that he has been slowly declining over the past 6 months and although he was independent, does not forsee him ever returning to his baseline of functional status. -The patient does have a long standing history of anxiety and depression for which, per the niece, " he has joked numerous times about suicide and apparently had a suicide attempt years ago". When I asked the details regarding this SA, she did not know as the details were told by the patients sister, years ago. Patient has continued to make comments more recently "I am done with this, I want to ". The niece did not express that there ever was a plan for additional SA. -I did express that the patient sodium level is returning to normal range which could be causing some encephalopathy vs worsening dementia. I expressed that another few days may really give good insight on his prognosis. At this time, the patient has general deconditioning related to dehydration, but nothing truly terminal or qualifiable from a hospice standpoint. -The patients dementia on a FAST stage would be 6B-6C, indicating moderate dementia. The patient did void in his urinal when I was in the room, with no assistance. -I did complete a POLST form with the patient's niece, which does reflect his living will that is on his chart, indicating: DNR/DNI, comfort measures only, limited abx trial, and no artifical nutrition or hydration. -The patient niece did stated that she does not want him to return to the hospital post discharge. -I did discuss the above with the hospitalist who will review and discuss further with the patient niece. -PPS: 30% (2) Metabolic encephalopathy: (3) Altered mental status: Altered mental status type: unspecified Qualified Code(s): R41.82 - Altered mental status, unspecified (4) Hypernatremia: (5) Dehydration: Supervising Physician Co-Signing Physician Notes Chart reviewed, patient seen and examined-no family or friends at bedside. Collaborated with AMADOR Gould Patient with significant dementia-unable to give any review of systems-was only able to state that he was cold. PE: Patient appears comfortable, NAD HEENT: EOMI, mild [place] Lungs: Clear breath sounds bilaterally CV: Regular rate Abdomen: Soft, nontender Neuro: Confused, oriented to self Agree with above note, assessment and plan as per AMADOR Gould. Will continue to follow and assist family with medical decision making. History of Present Illness Reason for Consultation: Goals of care Requesting Physician: Dr. Fry Attending Physician: Ally Fry, History of Present Illness This is an 89 year old male who presented to the [facility] from [facility] with tachy-ace heart rate, and was pale cool and clammy with altered mental status. Patient was recently admitted to [facility] two weeks prior for skilled services post admission of metabolic encephalopathy secondary to ARF, hypernatremia, and a UTI. Additional PMH includes HLD, anxiety/mood disorder, dementia, suicidal ideation, and bladder cancer. The patient has been increasingly restless and going through periods of refusing to eat. His Sodium level has shown improvement and has now returned to a normal range of 145. On admission, patient denied chest pain, SOB, abdominal pain or dysuria. Patient has made numerous comments about 'wanting to ' both to nursing staff and family. There is a component of his condition that may likely be metabolic encephalopathy, which may show improvement now that his sodium level has returned to normal. The patient does have a niece, Doris, who is also his POA who indicates that she would like to fully focus on comfort measures without initiating additional diagnostic interventions. Palliative Care was consulted to discuss goals of care. Please see A/P for additional details. Thank you kindly for including the palliative care team. Allergies Allergy/AdvReac Type Severity Reaction Status Date / Time nitrofurantoin Allergy Rash Unverified 04/23/19 22:08 [From Macrobid] Home Medications Home Medications Medication Instructions Recorded Confirmed Type melatonin 5 mg PO HS PRN 08/26/18 04/23/19 History Multivitamin 50 Plus 1 tab PO DAILY 04/02/19 04/23/19 History Ocuvite Eye Health 2 tab PO DAILY 04/02/19 04/23/19 History cholecalciferol (vitamin D3) 1,000 unit PO DAILY 04/02/19 04/23/19 History [Vitamin D3] cyanocobalamin (vitamin B-12) 1,000 mcg PO DAILY 04/02/19 04/23/19 History [Vitamin B-12] garlic 1,000 mg PO DAILY 04/02/19 04/23/19 History lutein 20 mg PO DAILY 04/02/19 04/23/19 History omega 5-dxx-pas-fish oil [Fish Oil] 2 cap PO DAILY 04/02/19 04/23/19 History vitamin E 1,000 unit PO DAILY 04/02/19 04/23/19 History tamsulosin 0.4 mg PO HS #30 cap 04/07/19 04/23/19 Rx acetaminophen [Tylenol] 650 mg PO QID PRN 04/23/19 04/23/19 History ascorbic acid (vitamin C) [Vitamin 500 mg PO BID 04/23/19 04/23/19 History C] loperamide [Imodium A-D] 2 - 4 mg PO UD PRN 04/23/19 04/23/19 History Patient History Medical History BPH (benign prostatic hyperplasia) (Chronic) Depression with anxiety (Chronic) CKD (chronic kidney disease), stage III (Chronic) Osteoarthritis (Chronic) History of bladder cancer (Chronic) History of squamous cell carcinoma (Chronic) Bladder cancer (Chronic 08/08/14) Dyslipidemia (Chronic) Gout (Chronic) Surgical History History of appendectomy (Chronic) History of colonoscopy (Chronic) Family History Father Cancer Other Family history non-contributory Social History Preferred Language: Greenlandic Communication Ability: Impaired 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[employer] & Live Experiences Required: No Beliefs That Will Affect Care: None marital status: Single Current Living Situation: Care Home Current Living Situation Comment: patient states he lives alone, has neighbor that checks on him frequently, he does not drive current occupational status: retired Other Information That Helps Us Care for You: No other: Ambulates with cane Feels Safe at Home: Yes Safety Concerns: Feels Safe At This Time Smoking Status: Former smoker Do You Dip or Chew Tobacco: No ; Second Hand Exposure: No ; Tobacco Cessation Education Requested by Patient: No Hx Alcohol Use: No Hx Substance Use: No Review of Systems Review of Systems: Unobtainable due to cognitive status Results & Data Vital Signs (Past 12 Hours) Vital Signs Temp Pulse Resp BP BP Pulse Ox 04/25/19 07:14 37.3 C 94 H 20 122/72 93 04/24/19 22:49 36.7 C 86 18 117/69 94 PG Care Time/CCT Total # of Minutes Spent Total Time Spent: 100 Total Time Spent with Patient: Total time spent is greater than 50% in coordination of care (as documented) at patient's floor/unit and/or counseling patient: 100 Prolonged Care Time Prolonged Care Time: Yes Total Prolonged Care Time: 100 Time Spent Midlevel Total time spent 100 minutes with > 50% of that time spent assessing the patient, discussing goals of care with patient niece.
--- NOTE | 2019-04-25 14:58 | Hospitalist Progress Note ---
Date of Service April 25, 2019 Assessment & Plan (1) Metabolic encephalopathy: Likely secondary to hypernatremia, improved since correction of sodium with IV fluids. Likely has some dementia at baseline. (2) Hypernatremia: Secondary to poor access to water, likely secondary to moiz aspiration as he failed bedside swallow today. As he is strict n.p.o. status, will continue IV fluids to continue hydration. Conversation with niece and palliative tomorrow for long-term care goals. (3) Dysphagia: Failed swallow study today, so barium swallow or video swallow are not options. Per niece and palliative today no further diagnostic studies are desired. Otherwise, could consider chest imaging or neck imaging to elucidate a cause. Strict n.p.o. at this time. (4) ARF (acute renal failure): GERRI On CKD III Likely Prerenal due to Poor oral intake Baseline Cr: 1.2 Cr:1.73>>1.59 Continue IV fluids Monitor renal function Avoid Nephrotoxic meds as able (5) BPH (benign prostatic hyperplasia): Flomax on hold as patient is strict n.p.o. In/out cath PRN. (6) DVT prophylaxis: Heparin DNR/DNI Dispo-pending conversation with niece and Palliative team regarding goals of care. Ally Fry DO [facility] Hospitalist Subjective Patient more oriented today. Appears apathetic to most questions. States he is not depressed. He reliably understands he is at the hospital and he thinks he came here for back pain after a fall. He reports feeling confused recently. He frankly failed his bedside swallow study with speech today and apparently had significant dysphasia. He is now strict n.p.o. Have set up a family conference with his niece Fabienne who is power of trust and estates attorney tomorrow and will engage palliative together in the conversation. Sodium is improved. Continue IV fluids to maintain hydration as patient cannot swallow. Review of Systems Review of Systems: All systems reviewed & are unremarkable except as noted in HPI & below Physical Exam Physical Exam: CONSTITUTIONAL: WNWD, vitals as above, generally well- appearing EYES: normal conjunctivae, no scleral icterus ENT: MM moist but whitish globs on tongue, noted during speech evaluation, also. Dentures in place. RESPIRATORY: clear to auscultation bilaterally, no crackles, rales or wheezes, normal respiratory effort CARDIOVASCULAR: regular rate and rhythm, S1 and 2 heard without murmurs, gallops or rubs, no JVD, no peripheral edema GASTROINTESTINAL: soft, nontender, nondistended MUSCULOSKELETAL: strength 5/5 throughout, but deconditioned generally, head is normocephalic and atraumatic SKIN: warm and dry NEUROLOGIC: No facial palsy, no dysarthria. CN 2-12 grossly intact, normal cognition, normal speech PSYCHIATRIC: alert cooperative and oriented to person, place but not date Results & Data Vital Signs (Past 12 Hours) Vital Signs Temp Pulse Resp BP Pulse Ox 04/25/19 07:14 37.3 C 94 H 20 122/72 93 Laboratory Results Short CBC 04/25/19 Range/Units 05:32 WBC 7.07 (4.8-10.8) K/uL Hgb 12.1 L (14.0-18.0) g/dL Hct 37.1 L (42-52) % Plt Count 186 (130-400) K/uL BMP 04/24/19 04/25/19 19:57 05:32 Sodium 147 H 145 Potassium 3.5 3.7 Chloride 117 H 114 H Carbon Dioxide 25 24 BUN 26 H 21 H Creatinine 1.29 D 1.28 Glucose 103 H 88 Calcium 8.3 L 8.6 Medications Administered Current Inpatient Medications Acetaminophen (Tylenol) 650 mg PO Q4H PRN PRN Reason: pain/fever Stop: 05/24/19 08:37 Heparin Sodium (Porcine) (Heparin Sodium (Porcine)) 5,000 units SQ Q12 NAYA Stop: 05/24/19 20:59 Last Admin: 04/25/19 10:00 Dose: 5,000 units Documented by: Dextrose (D5w) 1,000 mls @ 80 mls/hr IV .[id number] NAYA Stop: 05/24/19 12:29 Last Admin: 04/25/19 14:26 Dose: 80 mls/hr Documented by: Acetaminophen (Ofirmev) 65 mls @ 200 mls/hr IV Q6H PRN PRN Reason: Pain Stop: 05/25/19 05:44 Morphine Sulfate (Morphine Sulfate) 2 mg IV Q4H PRN PRN Reason: Pain Stop: 05/08/19 08:37 Last Admin: 04/25/19 05:24 Dose: 2 mg Documented by: Tamsulosin HCl (Flomax) 0.4 mg PO HS NAYA Stop: 05/24/19 20:59 Last Admin: 04/24/19 19:58 Dose: Not Given Documented by:
[2019-04-25] MEDS: D5W AND NSS 1,000 ML IV SCH (17:44)
[2019-04-25] MEDS ORDERED: GLYCERIN ADULT 12 EA SUPP PR STA (18:23)
[2019-04-25] MEDS: TAMSULOSIN HCL 0.4 MG CAP PO SCH (20:26)
[2019-04-26] MEDS: D5W AND NSS 1,000 ML IV SCH (06:06)
[2019-04-26 06:22] LABS: Hematocrit (blood only) 32.5 % (42-52); Hemoglobin 10.8 g/dL (14.0-18.0); Mean Corpuscular Hgb Conc 33.2 g/dL (32-36); Mean Corpuscular Volume 97.3 fL (80-100); Mean Platelet Volume 10.2 fL (7.4-10.4); Platelet Count 177 K/uL (130-400); RDW Standard Deviation 49.9 fL (36.4-46.3); Red Blood Count 3.34 M/uL (4.7-6.1); White Blood Count 5.11 K/uL (4.8-10.8)
[2019-04-26 06:57] LABS: BUN Creatinine Ratio 14.3 (10-20); Calcium 8.2 mg/dl (8.5-10.1); Creatinine Clr Calc Pharmacy 39.2 ml/min; Est GFR (African American) 67.9; Est GFR (Non-African American) 58.6; Magnesium 2.4 mg/dl (1.8-2.4); Potassium 3.1 mmol/L (3.5-5.1)
[2019-04-26] MEDS ORDERED: GLYCERIN ADULT 12 EA SUPP PR PRN (09:00)
[2019-04-26] MEDS: HEPARIN SOD 5,000 UNIT/0.5 ML VIAL SQ SCH (09:10)
[2019-04-26] MEDS ORDERED: DEXTROSE 5% 1,000 ML IV SCH (09:45)
--- NOTE | 2019-04-26 12:22 | Discharge Summary ---
Date of Service April 26, 2019 Admission HPI Per Admitting Provider History obtained from patient and records. Limited history from patient secondary to confused state. Medical history significant for hyperlipidemia, anxiety/mood disorder, bladder cancer as per records, past tobacco abuse. Recent confinement 2 weeks ago for metabolic encephalopathy secondary to ARF, hypernatremia, UTI. Patient discharged to [facility] for rehab. Patient noted to be pale and clammy last night at [facility] rehab facility. Blood pressure noted to be 120/61. Cardiac rate slow to rapid 40-115 as per rehab documentation. Patient very restless during vital signs monitoring. Patient not any more confused than usual as per [facility] staff. Patient to the emergency room. Patient denies chest pain, S OB, abdominal pain, dysuria. "Hungry" as per patient. Medical History as above Surgical History : Appendectomy, urologic procedures Family History : Could not be obtained Personal/Social history : Non-smoker, no EtOH intake, recent correction resident Admission Exam Per Admitting Provider GENERAL: Slightly agitated, disoriented, no respiratory distress SKIN: Pallor , warm HEENT: Bespectacled, pale palpebral conjunctivae, no ptosis, dry buccal mucosa NECK : Supple, no tenderness CHEST : Decreased effort, no tenderness HEART : RRR, no obvious murmurs ABDOMEN: Some distention, nontender RECTAL : Refused EXTREMITIES : No LE swelling/tenderness, no other conspicuous deformities noted NEUROLOGIC : Disoriented, no facial asymmetry, gait and stance not assessed Principal Diagnosis Hypernatremia Dehydration Dysphagia Discharge Data Allergies Allergy/AdvReac Type Severity Reaction Status Date / Time nitrofurantoin Allergy Rash Unverified 04/23/19 22:08 [From Macrobid] Consultations 04/24/19 00:28 ED Decision to Admit Stat 04/24/19 08:38 Consult Case Management - Discharge Planning Routine 04/24/19 12:13 Consult Palliative Care Routine Ordered Studies 04/23/19 21:37 CT head/brain wo con Stat Hospital Course (1) Metabolic encephalopathy: (2) Hypernatremia: (3) Dysphagia: (4) ARF (acute renal failure): (5) Dementia: (6) BPH (benign prostatic hyperplasia): 89-year-old man with probable dementia who was recently admitted for hyponatremia and confusion. He was subsequently moved from his apartment where he was living alone, into [facility] detention facility upon discharge from the hospital in the setting of deconditioning and other needs. He returned with worsened confusion and subsequently had a sodium again elevated to 150. Creatinine was worse at 1.73. He was initially placed on comfort care measures, however, after discussion with family members, the decision was made to reverse the dehydration and then have a discussion regarding long-term care goals with the patient. He was placed on D5W with improvement of sodium and renal failure. His mental status returned to baseline, and he deferred all decisions to his niece Fabienne. The following day when she arrived to have a discussion with the patient, palliative care and myself, the patient was again reverting to childlike behavior and throwing objects across the room with some evidence of confusion. He was unable to participate in the discussion fully. Per Fabienne, who is his power of personal injury attorney, she wanted him return to the detention facility at [facility] and if his health should fail in the future, not have him return to the hospital but instead begin comfort care measures through hospice type situation. This was discussed with palliative care who completed the POLST form to reflect this. At time of discharge he was on 2 L of oxygen via nasal cannula and should continue this going out. Multiple medications were discontinued to eliminate polypharmacy and the stress of swallowing any pills that were unnecessary. He was seen by speech pathology and initially had moiz aspiration during a bedside swallow study, prompting strict n.p.o. status. He was reevaluated the following day. In the setting of the clarified treatment goals to be in a more palliative direction, he was placed on a regular diet, with a minced and moist texture recommended for success. He is understood by family to be a high respiration risk. At time of discharge he was confused and deconditioned, unable to walk without assistance. He was tolerating p.o. and will be discharged to [facility] with the presumption his health will fail in the near future and he will be transition to a more palliative care direction. At time of discharge, sodium was 147, creatinine was 1.1 and potassium was 3.1. Follow-up with primary care provider was recommended in 1 week. Total Time Total Time Spent Total Time Spent (In Minutes): 60 Total Time Includes: Examination of the Patient, Discharge Planning, Medication Reconciliation and Communication With Other Providers Discharge Plan Discharge Items Patient Disposition: Transfer [facility] Care Fac Reason For Visit: ARF, LOW BP Discharge Diagnosis: Hypernatremia Dehydration Dysphagia Condition: Fair Discharge Goals: Decrease discomfort, Improve function and Increase independence Activity: Resume your previous activity Non-emergency contact: Primary Care Provider Call non-emergency contact if: you have any medication questions, your symptoms worsen, your pain is not controlled, your pain is worsening, your pain is unusual for you, your pain is concerning for you and you have a fever Follow-up/Referrals: [facility] [Primary Care Provider] - Diet: Regular Diet Texture: Dental soft (bite-sized) Diet Comment: minced and moist foods preferred Add Provider Instructions: Instructed on discharge list below. Of note an effort to decrease the amount of pills to take was made. Multiple vitamins and supplements were discontinued. If you prefer to take these, that is fine. However, nothing is strongly recommended other than the Flomax and vitamin D. You are being discharged on supplemental oxygen at a rate of 2 L via nasal cannula this can be further titrated by staff at [facility] as needed. Please follow-up with your primary care provider within one week of discharge. As a reminder, a POLST form was completed at time of discharge stating that your wishes and the wishes of your family are that you transition to Hospice should the need arise if your health starts to fail. It was a pleasure taking care of you! Please call if you have any questions or problems. You can reach a [facility] hospitalist on duty at [facility] 24 hours a day by calling [phone]. Take care of yourself. Ally Fry, DO [facility] Hospitalist Prescriptions: Continued cholecalciferol (vitamin D3) [Vitamin D3] 1,000 unit Capsule 1,000 unit PO DAILY RF: 0 tamsulosin 0.4 mg Capsule 0.4 mg PO HS Qty: 30 RF: 1 acetaminophen [Tylenol] 325 mg Tablet 650 mg PO QID PRN (Reason: Fever Or Pain) RF: 0 loperamide [Imodium A-D] 2 mg Tablet 2 - 4 mg PO UD PRN (Reason: Loose Stool) RF: 0 Discontinued vitamin E 1,000 unit Capsule 1,000 unit PO DAILY RF: 0 cyanocobalamin (vitamin B-12) [Vitamin B-12] 1,000 mcg Tablet 1,000 mcg PO DAILY RF: 0 garlic 1,000 mg Capsule 1,000 mg PO DAILY RF: 0 Multivitamin 50 Plus Tablet 1 tab PO DAILY RF: 0 omega 1-dnq-fxo-fish oil [Fish Oil] 1,000 mg (120 mg-180 mg) Capsule 2 cap PO DAILY RF: 0 lutein 20 mg Tablet 20 mg PO DAILY RF: 0 Ocuvite Eye Health 50 mg-15 unit- 4.5 mg-2.5 mg Tablet,Chewable 2 tab PO DAILY RF: 0 melatonin 5 mg Tablet 5 mg PO HS PRN (Reason: Sleep) RF: 0 ascorbic acid (vitamin C) [Vitamin C] 500 mg Tablet 500 mg PO BID RF: 0 Stand-Alone Forms: [facility] Discharge Orders: Discharge Order (Routine); Ordered 04/26/19 Ordered By: Ally Fry Skilled Items Patient informed of condition?: Yes DNR: Yes Discharge Level of Care: Skilled Communicable Disease: No Discharge Prognosis: Stable Admission Data Admit Date/Time: 04/25/19 15:49 Attending Provider: Ally Fry Admit Provider: Mic Lopez Primary Care Provider: Jamie Naik Other Providers: Mic Lopez ; Melina Ortiz Service: Medical
[2019-04-26] MEDS ORDERED: POTASSIUM CHLORIDE 20 MEQ/15 ML UDC PO STA (12:36)
--- NOTE | 2019-04-26 13:15 | Palliative Care Progress Note ---
Date of Service April 26, 2019 Assessment & Plan (1) Goals of care, counseling/discussion: -Patient is awake and alert today. Oriented to person and place, but definitely confused. Inappropriately laughing during conversation. Getting agitated and angry at times while niece was telling patient he would no longer be going home to his apartment. -Dr. Fry and I met with patient, niece/POA Fabienne Walker, and other niece Eden. Fabienne confirmed that the goal is for comfort and no further hos pitalizations. She did state that patient has always threatened suicide as long as she's known him, but he never carried out the plan and no one ever witnessed him hurting himself. Fabienne did say that patient continues to say often that he is ready to , but she has no concerns about him actually hurting himself. -Allow permissive aspiration, family knows risk of pneumonias, etc. -POLST form discussed and completed as follows: DNR, comfort measures only, abx with comfort as the goal, no artificial hydration/nutrition. -Plan is for patient to return to [facility] and transition to comfort/h ospice. Case management aware. (2) Metabolic encephalopathy: (3) Altered mental status: (4) Hypernatremia: (5) Dehydration: Subjective Family meeting this morning at 1000. See A&P. Patient awake and alert, still with confusion and occasional agitation. Review of Systems Review of Systems: Unobtainable due to cognitive status Physical Exam Constitutional: no acute distress ENMT: external ear and nose normal, oropharynx normal Respiratory: normal respiratory effort, lungs clear to auscultation Cardiovascular: RRR, no murmur, no edema Gastrointestinal (Abdomen): Inspection/Auscultation: abdomen normal to inspection and normal bowel sounds Neurologic: moves all extremities and awake Psychiatric: Orientation: alert, oriented to person and oriented to place Affect: + labile affect, + irritable affect and + angry affect Results & Data Vital Signs (Past 12 Hours) Vital Signs Temp Pulse Resp BP BP Pulse Ox 04/26/19 12:58 36.5 C 72 17 93/60 L 110/65 96 04/26/19 08:11 96 04/26/19 07:16 36.5 C 72 17 110/65 96 PG Care Time/CCT Prolonged Care Time Prolonged Care Time: Yes Total Prolonged Care Time: 65 Time Spent Midlevel 65 minutes with >50% of time spent at bedside with patient and family discussing POLST, hospice, GOC. (1) Altered mental status Altered mental status type: unspecified Qualified Code(s): R41.82 - Altered mental status, unspecified
== END 2019-04-26 14:20 | DRG 682 ==
LOC: ED 21:12 → 2N 21:12 → SUATTDRO 04-24 02:08 → 2N 04-24 02:27 → 4W 04-24 07:06
DX: G93.41 Metabolic encephalopathy; E86.0 Dehydration; R13.10 Dysphagia, unspecified; N17.8 Other acute kidney failure; E87.0 Hyperosmolality and hypernatremia; F03.90 Unspecified dementia, unspecified severity, without behavioral disturbance, psychotic disturbance, mood disturbance, and anxiety; Z87.891 Personal history of nicotine dependence; Z66 Do not resuscitate; N18.3 Chronic kidney disease, stage 3 (moderate); Z88.1 Allergy status to other antibiotic agents; F41.8 Other specified anxiety disorders; N40.0 Benign prostatic hyperplasia without lower urinary tract symptoms; Z79.899 Other long term (current) drug therapy; Z85.51 Personal history of malignant neoplasm of bladder